=== PATIENT | male | born 1970 | race Caucasian/White ===

== ENCOUNTER 2017-05-04 09:39 | Inpatient (IN) | payer OTHER ==
[2017-05-04 12:02] VITALS: BMI 36.1
--- NOTE | 2017-05-04 13:51 | HP ---
CIWA Score - CIWA Score Nausea/Vomitin Muscle Tremors: 3 Anxiety: 4-Mod. Anxious/Guarded Agitation: 2 Paroxysmal Sweats: 1-Minimal Palms Moist Orientation: 0-Oriented Tacttile Disturbances: 1-Very Mild Itch/Numbness Auditory Disturbances: 0-None Visual Disturbances: 1-Very Mild Sensitivity Headache: 2-Mild CIWA-Ar Total Score: 17 Admission ROS [facility] - HPI Chief Complaint: I need to stop drinking it is getting worse Allergies/Adverse Reactions: Allergies Allergy/AdvReac Type Severity Reaction Status Date / Time Fish Containing Products Allergy Intermediate Rash Verified 05/04/17 13:37 History of Present Illness: Orestes reports an increased pattern of etoh use Exam Limitations: No Limitations - Ebola screening Have you traveled outside of the country in the last 21 days: No Have you been sick,other than usual withdrawal symptoms: No - Review of Systems Constitutional: Malaise EENT: reports: No Symptoms Reported Respiratory: reports: No Symptoms reported Cardiac: reports: No Symptoms Reported GI: reports: Nausea, Indigestion : reports: No Symptoms Reported Musculoskeletal: reports: Muscle Pain Integumentary: reports: No Symptoms Reported Neuro: reports: See HPI Endocrine: reports: No Symptoms Reported Hematology: reports: No Symptoms Reported Psychiatric: reports: Anxious Patient History - Patient Medical History Hx Anemia: No Hx Asthma: No Hx Chronic Obstructive Pulmonary Disease (COPD): No Hx Cancer: No Hx Cardiac Disorders: No Hx Congestive Heart Failure: No Hx Hypertension: No Hx Hypercholesterolemia: No Hx Pacemaker: No HX Cerebrovascular Accident: No Hx Seizures: No Hx Dementia: No Hx Diabetes: No Hx Gastrointestinal Disorders: No Hx Liver Disease: Yes Hx Genitourinary Disorders: No Hx Sexually Transmitted Disorders: No Hx Renal Disease (ESRD): No Hx Thyroid Disease: No Hx Human Immunodeficiency Virus (HIV): No Hx Hepatitis C: Yes (NEEDS TREATMENT) Hx Depression: No Hx Suicide Attempt: No (denies) Hx Bipolar Disorder: No Hx Schizophrenia: No - Patient Surgical History Past Surgical History: No Hx Neurologic Surgery: No Hx Cataract Extraction: No Hx Cardiac Surgery: No Hx Lung Surgery: No Hx Breast Surgery: No Hx Breast Biopsy: No Hx Abdominal Surgery: No Hx Appendectomy: No Hx Cholecystectomy: No Hx Genitourinary Surgery: No Hx Section: No Hx Orthopedic Surgery: No Anesthesia Reaction: No - Smoking Cessation Smoking history: Current every day smoker Have you smoked in the past 12 months: Yes Aproximately how many cigarettes per day: 20 Hx Chewing Tobacco Use: No Initiated information on smoking cessation: Yes 'Breaking Loose' booklet given: 05/04/17 - Substance & Tx. History Hx Alcohol Use: Yes Substance Use Type: Alcohol - Substances Abused Alcohol Route: Oral Frequency: Daily Amount used: 5 24 OZ CANS MALT LIQUOR Age of first use: 10 Date of Last Use: 05/03/17 Family Disease History - Family Disease History Family Disease History: Diabetes: Mother Admission Physical Exam [facility] - Vital Signs Vital Signs: Vital Signs - 24 hr 05/04/17 12:00 Temperature 96.9 F L Pulse Rate 55 L Respiratory 20 Rate Blood Pressure 135/94 - Physical General Appearance: Yes: Disheveled HEENTM: Yes: EOMI, Hearing grossly Normal Respiratory: Yes: Lungs Clear Neck: Yes: No masses,lesions,Nodules Breast: Yes: Breast Exam Deferred Cardiology: Yes: Within Normal Limits Abdominal: Yes: Normal Bowel Sounds, Non Tender, Flat, Soft Back: Yes: Normal Inspection Musculoskeletal: Yes: full range of Motion, Gait Steady Extremities: Yes: Normal Capillary Refill Neurological: Yes: Within Normal Limits, [employer] bar[employer] II-XII NML intact Integumentary: Yes: Within Normal Limits - Diagnostic (1) Alcohol dependence with uncomplicated withdrawal Current Visit: Yes Status: Acute (2) Cocaine dependence, uncomplicated Current Visit: No Status: Chronic (3) Hepatitis C Current Visit: Yes Status: Chronic Qualifiers: Viral hepatitis chronicity: chronic Hepatic coma status: without hepatic coma Qualified Code(s): B18.2 - Chronic viral hepatitis C; B18.2 - Chronic viral hepatitis C; B18.2 - Chronic viral hepatitis C; B18.2 - Chronic viral hepatitis C (4) Nicotine dependence Current Visit: Yes Status: Chronic Qualifiers: Nicotine product type: cigarettes Substance use status: uncomplicated Qualified Code(s): F17.210 - Nicotine dependence, cigarettes, uncomplicated; F17.210 - Nicotine dependence, cigarettes, uncomplicated Cleared for Admission [facility] - Detox or Rehab [facility] Level of Care: Medically Managed Detox Regimen/Protocol: Librium [facility] Breath Alcohol Content Breath Alcohol Content: 0 Urine Drug Screen - Results Drug Screen Negative: No Urine Drug Screen Results: BZO-Benzodiazepines
[2017-05-04] MEDS ORDERED: MENTHOL/PHENOL 1 EACH UD MM PRN (14:01)
[2017-05-04] MEDS ORDERED: guaiFENesin/D-METHORPHAN HB 10 ML UNIT-DOSE CUPS PO PRN (14:01)
[2017-05-04] MEDS ORDERED: MAGNESIUM CITRATE 300 ML BOTTLE PO PRN (14:01)
[2017-05-04] MEDS ORDERED: MAGNESIUM HYDROX 2400MG/30ML ORAL SUSPENSION 30 ML CUP PO PRN (14:01)
[2017-05-04] MEDS ORDERED: IBUPROFEN 400 MG TABLET (FP) PO PRN (14:01)
[2017-05-04] MEDS ORDERED: ACETAMINOPHEN 325 MG TABLET (FP) PO PRN (14:01)
[2017-05-04] MEDS ORDERED: MAG HYDROX/AL HYDROX/SIMETH 30 ML UNIT-DOSE CUP PO PRN (14:01)
[2017-05-04] MEDS ORDERED: chlordiazePOXIDE HCL 25 MG CAPSULE PO PRN (14:01)
[2017-05-04] MEDS ORDERED: NICOTINE POLACRILEX 2 MG GUM BUC PRN (14:01)
[2017-05-04] MEDS ORDERED: P-EPHED 60MG/TRIPROLIDI 2.5MG TABLET PO PRN (14:01)
[2017-05-04] MEDS ORDERED: LOPERAMIDE HCL 2 MG CAPSULE PO PRN (14:01)
[2017-05-04] MEDS: NICOTINE 14 MG/24 HOURS TOPICAL PATCH TD SCH (15:39)
[2017-05-04 16:37] LABS: MCH 31.5 pg (25.7-33.7); MCHC 33.6 g/dl (32.0-35.9); MEAN CELL VOLUME 93.8 fl (80-96); MEAN PLT VOLUME 9.6 fl (7.5-11.1); PLATELET COUNT 198 K/MM3 (134-434); RDW 13.5 % (11.9-15.9); WHITE BLOOD COUNT 6.9 K/mm3 (4.0-10.0)
[2017-05-04 16:48] LABS: ALBUMIN 3.6 g/dl (3.4-5.0); ANION GAP 7 (8-16); CO2 30 mmol/L (21-32); GLUCOSE,RANDOM 99 mg/dL (74-106)
[2017-05-04 16:53] LABS: ALK PHOS 61 U/L (45-117); BILIRUBIN,TOTAL 0.4 mg/dL (0.2-1.0); CREATININE 0.9 mg/dL (0.7-1.3); SGOT/AST 56 U/L (15-37); SGPT/ALT 104 U/L (12-78); TOT PROT 7.3 g/dl (6.4-8.2)
[2017-05-04] MEDS: chlordiazePOXIDE HCL 25 MG CAPSULE PO SCH ×2 (17:32→22:34)
[2017-05-04 17:59] LABS: PLATELET ESTIMATE ADEQUATE (NORMAL)
[2017-05-04 19:58] LABS: HIV 1 & 2 AB NEGATIVE; HIV 1 AGp24 NEGATIVE
[2017-05-04 20:26] LABS: URINE APPEARANCE CLEAR; URINE BILIRUBIN NEGATIVE (NEGATIVE); URINE BLOOD NEGATIVE (NEGATIVE); URINE COLOR LTYELLOW; URINE GLUCOSE (UA) NEGATIVE (NEGATIVE); URINE KETONE NEGATIVE (NEGATIVE); URINE NITRITE NEGATIVE (NEGATIVE); URINE PROTEIN NEGATIVE (NEGATIVE); URINE UROBILINOGEN NEGATIVE mg/dL (0.2-1.0)
[2017-05-04] MEDS: diphenhydrAMINE HCL 50 MG CAPSULE PO PRN (22:34)
[2017-05-04] MEDS: THIAMINE HCL 100 MG TABLET (FP) PO SCH (22:34)
[2017-05-04 22:42] LABS: URINE LEUK ESTERASE Negative (NEGATIVE)
[2017-05-05] MEDS: chlordiazePOXIDE HCL 25 MG CAPSULE PO SCH ×4 (06:02→23:00)
--- NOTE | 2017-05-05 09:28 | EKG ---
Test Reason : Blood Pressure : / mmHG Vent. Rate : 064 BPM Atrial Rate : 064 BPM P-R Int : 152 ms QRS Dur : 094 ms QT Int : 418 ms P-R-T Axes : 006 062 047 degrees QTc Int : 431 ms NORMAL SINUS RHYTHM WITH SINUS ARRHYTHMIA ANTERIOR INFARCT , AGE UNDETERMINED NON-SPECIFIC INTRA-VENTRICULAR CONDUCTION DELAY NO PREVIOUS ECGS AVAILABLE Confirmed by SCOTT YOUNGER MD ([id number]) on 05/05/2017 9:28:23 AM Referred By: Joni Cook Confirmed By:SCOTT YOUNGER MD
[2017-05-05] MEDS: PRENATAL VITAMINS W/ FOLIC ACID TABLET (FP) PO SCH (10:48)
[2017-05-05] MEDS: NICOTINE 14 MG/24 HOURS TOPICAL PATCH TD SCH (10:51)
[2017-05-05] MEDS ORDERED: FLU VACCINE QUAD 60 MCG/0.5 ML (MDV 17-18) IM ONE (12:00)
--- NOTE | 2017-05-05 12:33 | PN ---
[facility] CIWA - CIWA Score Nausea/Vomitin-No Nausea/No Vomiting Muscle Tremors: 4-Moderate,w/Arms Extend Anxiety: 4-Mod. Anxious/Guarded Agitation: 4-Moderately Restless Paroxysmal Sweats: 1-Minimal Palms Moist Orientation: 0-Oriented Tacttile Disturbances: 3-Moderate Itch/Numb/Burn Auditory Disturbances: 0-None Visual Disturbances: 0-None Headache: 0-None Present CIWA-Ar Total Score: 16 [facility] Progress Note (SOAP) Subjective: ANXIETY,TREMORS,SWEATS,FATIGUE. Objective: 05/05/17 12:33 Vital Signs Temperature 98.0 F 05/05/17 10:21 Pulse Rate 80 05/05/17 10:21 Respiratory Rate 18 05/05/17 10:21 Blood Pressure 130/88 05/05/17 10:21 O2 Sat by Pulse Oximetry (%) Laboratory Last Values WBC 6.9 K/mm3 (4.0-10.0) 05/04/17 14:00 RBC 4.48 M/mm3 (4.00-5.60) 05/04/17 14:00 Hgb 14.1 GM/dL (11.7-16.9) 05/04/17 14:00 Hct 42.1 % (35.4-49) 05/04/17 14:00 MCV 93.8 fl (80-96) 05/04/17 14:00 MCH 31.5 pg (25.7-33.7) 05/04/17 14:00 MCHC 33.6 g/dl (32.0-35.9) 05/04/17 14:00 RDW 13.5 % (11.9-15.9) 05/04/17 14:00 Plt Count 198 K/MM3 (134-434) 05/04/17 14:00 MPV 9.6 fl (7.5-11.1) 05/04/17 14:00 Differential Comment Slide scanned 05/04/17 14:00 Platelet Estimate Adequate (NORMAL) 05/04/17 14:00 Platelet Comment Few giant plts 05/04/17 14:00 Sodium 143 mmol/L (136-145) 05/04/17 14:00 Potassium 4.4 mmol/L (3.5-5.1) 05/04/17 14:00 Chloride 106 mmol/L (98-107) 05/04/17 14:00 Carbon Dioxide 30 mmol/L (21-32) 05/04/17 14:00 Anion Gap 7 (8-16) L 05/04/17 14:00 BUN 13 mg/dL (7-18) D 05/04/17 14:00 Creatinine 0.9 mg/dL (0.7-1.3) 05/04/17 14:00 Creat Clearance w eGFR > 60 (>60) 05/04/17 14:00 Random Glucose 99 mg/dL (74-106) 05/04/17 14:00 Calcium 9.0 mg/dL (8.5-10.1) 05/04/17 14:00 Total Bilirubin 0.4 mg/dL (0.2-1.0) D 05/04/17 14:00 AST 56 U/L (15-37) H D 05/04/17 14:00 ALT 104 U/L (12-78) H D 05/04/17 14:00 Alkaline Phosphatase 61 U/L (45-117) D 05/04/17 14:00 Total Protein 7.3 g/dl (6.4-8.2) 05/04/17 14:00 Albumin 3.6 g/dl (3.4-5.0) 05/04/17 14:00 Urine Color Ltyellow 05/04/17 19:43 Urine Appearance Clear 05/04/17 19:43 Urine pH 8.0 (5.0-8.0) D 05/04/17 19:43 Ur Specific [place] 1.020 (1.005-1.025) 05/04/17 19:43 Urine Protein Negative (NEGATIVE) 05/04/17 19:43 Urine Glucose (UA) Negative (NEGATIVE) 05/04/17 19:43 Urine Ketones Negative (NEGATIVE) 05/04/17 19:43 Urine Blood Negative (NEGATIVE) 05/04/17 19:43 Urine Nitrite Negative (NEGATIVE) 05/04/17 19:43 Urine Bilirubin Negative (NEGATIVE) 05/04/17 19:43 Urine Urobilinogen Negative mg/dL (0.2-1.0) 05/04/17 19:43 Ur Leukocyte Esterase Negative (NEGATIVE) 05/04/17 19:43 RPR Titer Nonreactive (NONREACTIVE) 05/04/17 14:00 HIV 1&2 Antibody Screen Negative 05/04/17 14:00 HIV P24 Antigen Negative 05/04/17 14:00 Assessment: 05/05/17 12:33 WITHDRAWAL SX Plan: CONTINUE DETOX
[2017-05-05] MEDS: THIAMINE HCL 100 MG TABLET (FP) PO SCH (22:59)
[2017-05-05] MEDS: HYDROCORTISONE 2.5% TOPICAL CREAM 30 GM TUBE TP SCH (23:00)
[2017-05-05] MEDS: diphenhydrAMINE HCL 50 MG CAPSULE PO PRN (23:00)
[2017-05-05] MEDS: LIDOCAINE VISCOUS 2% ORAL/TOP 20 ML UNIT-DOSE CUP MM PRN (23:04)
[2017-05-06] MEDS: chlordiazePOXIDE HCL 25 MG CAPSULE PO SCH ×2 (06:22→10:49)
[2017-05-06] MEDS: HYDROCORTISONE 2.5% TOPICAL CREAM 30 GM TUBE TP SCH ×2 (10:49→22:44)
[2017-05-06] MEDS: NICOTINE 14 MG/24 HOURS TOPICAL PATCH TD SCH (10:49)
[2017-05-06] MEDS: PRENATAL VITAMINS W/ FOLIC ACID TABLET (FP) PO SCH (10:49)
[2017-05-06] MEDS: chlordiazePOXIDE 5 MG CAPSULE PO SCH ×2 (17:38→22:43)
--- NOTE | 2017-05-06 19:50 | PN ---
[facility] CIWA - CIWA Score Nausea/Vomitin-Mild Nausea/No Vomiting Muscle Tremors: 4-Moderate,w/Arms Extend Anxiety: 3 Agitation: 2 Paroxysmal Sweats: 3 Orientation: 0-Oriented Tacttile Disturbances: 2-Mild Itch/Numbness/Burn Auditory Disturbances: 1-Very Mild Visual Disturbances: 2-Mild Sensitivity Headache: 0-None Present CIWA-Ar Total Score: 18 [facility] Progress Note (SOAP) Subjective: Tremors, Sweating, Anxious. Objective: PT. A & O X 3, OBSERVED AMBULATING ON UNIT WITH ASSISTANCE OF A CANE. NO ACUTE DISTRESS. PT. DENIES CHEST PAIN. 05/06/17 19:47 Vital Signs Temperature 97.4 F L 05/06/17 18:47 Pulse Rate 58 L 05/06/17 18:47 Respiratory Rate 18 05/06/17 18:47 Blood Pressure 132/78 05/06/17 18:47 O2 Sat by Pulse Oximetry (%) Laboratory Tests 05/04/17 05/04/17 05/04/17 14:00 14:00 14:00 WBC 6.9 RBC 4.48 Hgb 14.1 Hct 42.1 MCV 93.8 MCH 31.5 MCHC 33.6 RDW 13.5 Plt Count 198 MPV 9.6 Differential Comment Slide scanned Platelet Estimate Adequate Platelet Comment Few giant plts Sodium 143 Potassium 4.4 Chloride 106 Carbon Dioxide 30 Anion Gap 7 L BUN 13 D Creatinine 0.9 Creat Clearance w eGFR > 60 Random Glucose 99 Calcium 9.0 Total Bilirubin 0.4 D AST 56 H D ALT 104 H D Alkaline Phosphatase 61 D Total Protein 7.3 Albumin 3.6 Urine Color Urine Appearance Urine pH Ur Specific [place] Urine Protein Urine Glucose (UA) Urine Ketones Urine Blood Urine Nitrite Urine Bilirubin Urine Urobilinogen Ur Leukocyte Esterase RPR Titer HIV 1&2 Antibody Screen Negative HIV P24 Antigen Negative 05/04/17 05/04/17 14:00 19:43 WBC RBC Hgb Hct MCV MCH MCHC RDW Plt Count MPV Differential Comment Platelet Estimate Platelet Comment Sodium Potassium Chloride Carbon Dioxide Anion Gap BUN Creatinine Creat Clearance w eGFR Random Glucose Calcium Total Bilirubin AST ALT Alkaline Phosphatase Total Protein Albumin Urine Color Ltyellow Urine Appearance Clear Urine pH 8.0 D Ur Specific [place] 1.020 Urine Protein Negative Urine Glucose (UA) Negative Urine Ketones Negative Urine Blood Negative Urine Nitrite Negative Urine Bilirubin Negative Urine Urobilinogen Negative Ur Leukocyte Esterase Negative RPR Titer Nonreactive HIV 1&2 Antibody Screen HIV P24 Antigen LABS NOTED. Assessment: 05/06/17 19:47 WITHDRAWAL SYMPTOMS. Plan: CONTINUE DETOX.
[2017-05-06] MEDS: THIAMINE HCL 100 MG TABLET (FP) PO SCH (22:43)
[2017-05-07] MEDS: chlordiazePOXIDE 5 MG CAPSULE PO SCH ×2 (05:11→10:34)
[2017-05-07] MEDS: PRENATAL VITAMINS W/ FOLIC ACID TABLET (FP) PO SCH (10:34)
[2017-05-07] MEDS: HYDROCORTISONE 2.5% TOPICAL CREAM 30 GM TUBE TP SCH ×2 (10:34→22:35)
[2017-05-07] MEDS: NICOTINE 14 MG/24 HOURS TOPICAL PATCH TD SCH (10:34)
[2017-05-07] MEDS: LIDOCAINE VISCOUS 2% ORAL/TOP 20 ML UNIT-DOSE CUP MM PRN (10:37)
--- NOTE | 2017-05-07 11:27 | PN ---
[facility] Progress Note (SOAP) Subjective: DECREASED ANXIETY, SWEATS. MEDS EFFECTIVE. ALERT O X 3. OOB AMBULATING ON UNIT. Objective: 05/07/17 11:26 Vital Signs Temperature 98.4 F 05/07/17 10:00 Pulse Rate 93 H 05/07/17 10:00 Respiratory Rate 18 05/07/17 10:00 Blood Pressure 144/86 05/07/17 10:00 O2 Sat by Pulse Oximetry (%) Laboratory Last Values WBC 6.9 K/mm3 (4.0-10.0) 05/04/17 14:00 RBC 4.48 M/mm3 (4.00-5.60) 05/04/17 14:00 Hgb 14.1 GM/dL (11.7-16.9) 05/04/17 14:00 Hct 42.1 % (35.4-49) 05/04/17 14:00 MCV 93.8 fl (80-96) 05/04/17 14:00 MCH 31.5 pg (25.7-33.7) 05/04/17 14:00 MCHC 33.6 g/dl (32.0-35.9) 05/04/17 14:00 RDW 13.5 % (11.9-15.9) 05/04/17 14:00 Plt Count 198 K/MM3 (134-434) 05/04/17 14:00 MPV 9.6 fl (7.5-11.1) 05/04/17 14:00 Differential Comment Slide scanned 05/04/17 14:00 Platelet Estimate Adequate (NORMAL) 05/04/17 14:00 Platelet Comment Few giant plts 05/04/17 14:00 Sodium 143 mmol/L (136-145) 05/04/17 14:00 Potassium 4.4 mmol/L (3.5-5.1) 05/04/17 14:00 Chloride 106 mmol/L (98-107) 05/04/17 14:00 Carbon Dioxide 30 mmol/L (21-32) 05/04/17 14:00 Anion Gap 7 (8-16) L 05/04/17 14:00 BUN 13 mg/dL (7-18) D 05/04/17 14:00 Creatinine 0.9 mg/dL (0.7-1.3) 05/04/17 14:00 Creat Clearance w eGFR > 60 (>60) 05/04/17 14:00 Random Glucose 99 mg/dL (74-106) 05/04/17 14:00 Calcium 9.0 mg/dL (8.5-10.1) 05/04/17 14:00 Total Bilirubin 0.4 mg/dL (0.2-1.0) D 05/04/17 14:00 AST 56 U/L (15-37) H D 05/04/17 14:00 ALT 104 U/L (12-78) H D 05/04/17 14:00 Alkaline Phosphatase 61 U/L (45-117) D 05/04/17 14:00 Total Protein 7.3 g/dl (6.4-8.2) 05/04/17 14:00 Albumin 3.6 g/dl (3.4-5.0) 05/04/17 14:00 Urine Color Ltyellow 05/04/17 19:43 Urine Appearance Clear 05/04/17 19:43 Urine pH 8.0 (5.0-8.0) D 05/04/17 19:43 Ur Specific [place] 1.020 (1.005-1.025) 05/04/17 19:43 Urine Protein Negative (NEGATIVE) 05/04/17 19:43 Urine Glucose (UA) Negative (NEGATIVE) 05/04/17 19:43 Urine Ketones Negative (NEGATIVE) 05/04/17 19:43 Urine Blood Negative (NEGATIVE) 05/04/17 19:43 Urine Nitrite Negative (NEGATIVE) 05/04/17 19:43 Urine Bilirubin Negative (NEGATIVE) 05/04/17 19:43 Urine Urobilinogen Negative mg/dL (0.2-1.0) 05/04/17 19:43 Ur Leukocyte Esterase Negative (NEGATIVE) 05/04/17 19:43 RPR Titer Nonreactive (NONREACTIVE) 05/04/17 14:00 HIV 1&2 Antibody Screen Negative 05/04/17 14:00 HIV P24 Antigen Negative 05/04/17 14:00 Assessment: 05/07/17 11:27 DECREASED WITHDRAWAL SX Plan: CONTINUE DETOX
[2017-05-07] MEDS: chlordiazePOXIDE HCL 10 MG CAPSULE PO SCH ×2 (17:39→22:35)
[2017-05-07] MEDS: THIAMINE HCL 100 MG TABLET (FP) PO SCH (22:35)
[2017-05-08] MEDS: chlordiazePOXIDE HCL 10 MG CAPSULE PO SCH ×2 (05:41→10:44)
[2017-05-08] MEDS: HYDROCORTISONE 2.5% TOPICAL CREAM 30 GM TUBE TP SCH ×2 (10:43→22:37)
[2017-05-08] MEDS: PRENATAL VITAMINS W/ FOLIC ACID TABLET (FP) PO SCH (10:43)
[2017-05-08] MEDS: NICOTINE 14 MG/24 HOURS TOPICAL PATCH TD SCH (10:43)
--- NOTE | 2017-05-08 11:39 | PN ---
S Progress Note (SOAP) Subjective: ALERT O X 3. OOB AMBULATING ON HALLWAYS. NAD. DETOX PROCEEDING WELL. Objective: 05/08/17 11:38 Vital Signs Temperature 97.8 F 05/08/17 09:59 Pulse Rate 97 H 05/08/17 09:59 Respiratory Rate 20 05/08/17 09:59 Blood Pressure 139/74 05/08/17 09:59 O2 Sat by Pulse Oximetry (%) Laboratory Last Values WBC 6.9 K/mm3 (4.0-10.0) 05/04/17 14:00 RBC 4.48 M/mm3 (4.00-5.60) 05/04/17 14:00 Hgb 14.1 GM/dL (11.7-16.9) 05/04/17 14:00 Hct 42.1 % (35.4-49) 05/04/17 14:00 MCV 93.8 fl (80-96) 05/04/17 14:00 MCH 31.5 pg (25.7-33.7) 05/04/17 14:00 MCHC 33.6 g/dl (32.0-35.9) 05/04/17 14:00 RDW 13.5 % (11.9-15.9) 05/04/17 14:00 Plt Count 198 K/MM3 (134-434) 05/04/17 14:00 MPV 9.6 fl (7.5-11.1) 05/04/17 14:00 Differential Comment Slide scanned 05/04/17 14:00 Platelet Estimate Adequate (NORMAL) 05/04/17 14:00 Platelet Comment Few giant plts 05/04/17 14:00 Sodium 143 mmol/L (136-145) 05/04/17 14:00 Potassium 4.4 mmol/L (3.5-5.1) 05/04/17 14:00 Chloride 106 mmol/L (98-107) 05/04/17 14:00 Carbon Dioxide 30 mmol/L (21-32) 05/04/17 14:00 Anion Gap 7 (8-16) L 05/04/17 14:00 BUN 13 mg/dL (7-18) D 05/04/17 14:00 Creatinine 0.9 mg/dL (0.7-1.3) 05/04/17 14:00 Creat Clearance w eGFR > 60 (>60) 05/04/17 14:00 Random Glucose 99 mg/dL (74-106) 05/04/17 14:00 Calcium 9.0 mg/dL (8.5-10.1) 05/04/17 14:00 Total Bilirubin 0.4 mg/dL (0.2-1.0) D 05/04/17 14:00 AST 56 U/L (15-37) H D 05/04/17 14:00 ALT 104 U/L (12-78) H D 05/04/17 14:00 Alkaline Phosphatase 61 U/L (45-117) D 05/04/17 14:00 Total Protein 7.3 g/dl (6.4-8.2) 05/04/17 14:00 Albumin 3.6 g/dl (3.4-5.0) 05/04/17 14:00 Urine Color Ltyellow 05/04/17 19:43 Urine Appearance Clear 05/04/17 19:43 Urine pH 8.0 (5.0-8.0) D 05/04/17 19:43 Ur Specific [place] 1.020 (1.005-1.025) 05/04/17 19:43 Urine Protein Negative (NEGATIVE) 05/04/17 19:43 Urine Glucose (UA) Negative (NEGATIVE) 05/04/17 19:43 Urine Ketones Negative (NEGATIVE) 05/04/17 19:43 Urine Blood Negative (NEGATIVE) 05/04/17 19:43 Urine Nitrite Negative (NEGATIVE) 05/04/17 19:43 Urine Bilirubin Negative (NEGATIVE) 05/04/17 19:43 Urine Urobilinogen Negative mg/dL (0.2-1.0) 05/04/17 19:43 Ur Leukocyte Esterase Negative (NEGATIVE) 05/04/17 19:43 RPR Titer Nonreactive (NONREACTIVE) 05/04/17 14:00 HIV 1&2 Antibody Screen Negative 05/04/17 14:00 HIV P24 Antigen Negative 05/04/17 14:00 Assessment: 05/08/17 11:38 DECREASED WITHDRAWAL SX Plan: CONTINUE DETOX
[2017-05-08] MEDS: VITAMINS A AND D TOPICAL OINTMENT 60 GM TUBE TP SCH (22:36)
[2017-05-08] MEDS: THIAMINE HCL 100 MG TABLET (FP) PO SCH (22:36)
[2017-05-09 09:29] VITALS: BP 143/92; PULSE 71; TEMP 98.4
[2017-05-09] MEDS: HYDROCORTISONE 2.5% TOPICAL CREAM 30 GM TUBE TP SCH (10:53)
[2017-05-09] MEDS: VITAMINS A AND D TOPICAL OINTMENT 60 GM TUBE TP SCH (10:53)
[2017-05-09] MEDS: NICOTINE 14 MG/24 HOURS TOPICAL PATCH TD SCH (10:53)
[2017-05-09] MEDS: PRENATAL VITAMINS W/ FOLIC ACID TABLET (FP) PO SCH (10:53)
--- NOTE | 2017-05-09 11:15 | DS ---
[facility] Detox Discharge Summary Admission Date: 05/04/17 Discharge Date: 05/09/17 - History Present History: Alcohol Dependence, Cocaine Dependence, Opioid Dependence Additional Comments: DETOX COMPLETED. ALERT OX 3. NAD. PT INSTRUCTED TO F/U WITH PCP AT [facility] NEEDED. Pertinent Past History: HEP C - Physical Exam Results Vital Signs: Vital Signs Temperature 98.4 F 05/09/17 09:28 Pulse Rate 71 05/09/17 09:28 Respiratory Rate 18 05/09/17 09:28 Blood Pressure 143/92 05/09/17 09:28 O2 Sat by Pulse Oximetry (%) Pertinent Admission Physical Exam Findings: WITHDRAWAL SX Laboratory Last Values WBC 6.9 K/mm3 (4.0-10.0) 05/04/17 14:00 RBC 4.48 M/mm3 (4.00-5.60) 05/04/17 14:00 Hgb 14.1 GM/dL (11.7-16.9) 05/04/17 14:00 Hct 42.1 % (35.4-49) 05/04/17 14:00 MCV 93.8 fl (80-96) 05/04/17 14:00 MCH 31.5 pg (25.7-33.7) 05/04/17 14:00 MCHC 33.6 g/dl (32.0-35.9) 05/04/17 14:00 RDW 13.5 % (11.9-15.9) 05/04/17 14:00 Plt Count 198 K/MM3 (134-434) 05/04/17 14:00 MPV 9.6 fl (7.5-11.1) 05/04/17 14:00 Differential Comment Slide scanned 05/04/17 14:00 Platelet Estimate Adequate (NORMAL) 05/04/17 14:00 Platelet Comment Few giant plts 05/04/17 14:00 Sodium 143 mmol/L (136-145) 05/04/17 14:00 Potassium 4.4 mmol/L (3.5-5.1) 05/04/17 14:00 Chloride 106 mmol/L (98-107) 05/04/17 14:00 Carbon Dioxide 30 mmol/L (21-32) 05/04/17 14:00 Anion Gap 7 (8-16) L 05/04/17 14:00 BUN 13 mg/dL (7-18) D 05/04/17 14:00 Creatinine 0.9 mg/dL (0.7-1.3) 05/04/17 14:00 Creat Clearance w eGFR > 60 (>60) 05/04/17 14:00 Random Glucose 99 mg/dL (74-106) 05/04/17 14:00 Calcium 9.0 mg/dL (8.5-10.1) 05/04/17 14:00 Total Bilirubin 0.4 mg/dL (0.2-1.0) D 05/04/17 14:00 AST 56 U/L (15-37) H D 05/04/17 14:00 ALT 104 U/L (12-78) H D 05/04/17 14:00 Alkaline Phosphatase 61 U/L (45-117) D 05/04/17 14:00 Total Protein 7.3 g/dl (6.4-8.2) 05/04/17 14:00 Albumin 3.6 g/dl (3.4-5.0) 05/04/17 14:00 Urine Color Ltyellow 05/04/17 19:43 Urine Appearance Clear 05/04/17 19:43 Urine pH 8.0 (5.0-8.0) D 05/04/17 19:43 Ur Specific [place] 1.020 (1.005-1.025) 05/04/17 19:43 Urine Protein Negative (NEGATIVE) 05/04/17 19:43 Urine Glucose (UA) Negative (NEGATIVE) 05/04/17 19:43 Urine Ketones Negative (NEGATIVE) 05/04/17 19:43 Urine Blood Negative (NEGATIVE) 05/04/17 19:43 Urine Nitrite Negative (NEGATIVE) 05/04/17 19:43 Urine Bilirubin Negative (NEGATIVE) 05/04/17 19:43 Urine Urobilinogen Negative mg/dL (0.2-1.0) 05/04/17 19:43 Ur Leukocyte Esterase Negative (NEGATIVE) 05/04/17 19:43 RPR Titer Nonreactive (NONREACTIVE) 05/04/17 14:00 HIV 1&2 Antibody Screen Negative 05/04/17 14:00 HIV P24 Antigen Negative 05/04/17 14:00 - Treatment Hospital Course: Detox Protocol Followed, Detoxed Safely, Responded well, Discharged Condition Good, Rehab Referral Accepted Patient has Accepted a Rehab Referral to: [facility] - Medication Discharge Medications: Ambulatory Orders NK [No Known Home Medication] 04/14/16 - Diagnosis (1) Alcohol dependence with uncomplicated withdrawal Current Visit: Yes Status: Acute (2) Hepatitis C Current Visit: Yes Status: Chronic Qualifiers: Viral hepatitis chronicity: chronic Hepatic coma status: without hepatic coma Qualified Code(s): B18.2 - Chronic viral hepatitis C; B18.2 - Chronic viral hepatitis C; B18.2 - Chronic viral hepatitis C; B18.2 - Chronic viral hepatitis C (3) Nicotine dependence Current Visit: Yes Status: Acute Qualifiers: Nicotine product type: cigarettes Substance use status: in withdrawal Qualified Code(s): F17.213 - Nicotine dependence, cigarettes, with withdrawal; F17.213 - Nicotine dependence, cigarettes, with withdrawal (4) Cocaine dependence, uncomplicated Current Visit: Yes Status: Acute (5) Opioid dependence with withdrawal Current Visit: Yes Status: Acute - AMA Did Patient Leave Against Medical Advice: No
== END 2017-05-09 12:54 | disposition other institution (70) | DRG 773 ==
LOC: YASAS 09:39 → Y3N 14:52
PROVIDERS: ADMIT Internal Medicine; ATTEND Internal Medicine
PROC: HZ2ZZZZ Detoxification Services for Substance Abuse Treatment (ICD-10-PCS; principal; 2017-05-04)
DX: F11.23 Opioid dependence with withdrawal (principal); F10.230 Alcohol dependence with withdrawal, uncomplicated; F14.20 Cocaine dependence, uncomplicated; F17.213 Nicotine dependence, cigarettes, with withdrawal; B18.2 Chronic viral hepatitis C; Z59.0 Homelessness
CPT/HCPCS: 36415; 71020-TC; 80053; 81003; 85027; 86593; 87389; 90688; 93005; 93010; G0008

== ENCOUNTER 2017-05-09 13:05 | Inpatient (IN) | payer OTHER ==
[2017-05-09 13:39] VITALS: BMI 35.1
[2017-05-09] MEDS ORDERED: MENTHOL/PHENOL 1 EACH UD MM PRN (13:57)
[2017-05-09] MEDS ORDERED: hydrOXYzine PAMOATE 50 MG CAPSULE (FP) PO PRN (13:57)
[2017-05-09] MEDS ORDERED: MAG HYDROX/AL HYDROX/SIMETH 30 ML UNIT-DOSE CUP PO PRN (13:57)
[2017-05-09] MEDS ORDERED: guaiFENesin/D-METHORPHAN HB 10 ML UNIT-DOSE CUPS PO PRN (13:57)
[2017-05-09] MEDS ORDERED: P-EPHED 60MG/TRIPROLIDI 2.5MG TABLET PO PRN (13:57)
[2017-05-09] MEDS ORDERED: MAGNESIUM HYDROX 2400MG/30ML ORAL SUSPENSION 30 ML CUP PO PRN (13:57)
[2017-05-09] MEDS ORDERED: IBUPROFEN 400 MG TABLET (FP) PO PRN (13:57)
[2017-05-09] MEDS ORDERED: ACETAMINOPHEN 325 MG TABLET (FP) PO PRN (13:57)
[2017-05-09] MEDS ORDERED: MAGNESIUM CITRATE 300 ML BOTTLE PO PRN (13:57)
[2017-05-09] MEDS ORDERED: LOPERAMIDE HCL 2 MG CAPSULE PO PRN (13:57)
--- NOTE | 2017-05-09 13:59 | HP ---
[facility] Rehab Assess/Revision - Admission History Admitted to Rehab from: [facility] [place] Date of Admission to Rehab: 05/09/2017 - Vital signs Vital Signs: Vital Signs Period Temp Pulse Resp BP Sys/Contreras Pulse Ox Last 24 Hr 98.5 F 75 20 148/89 - Findings Detox History & Physical reviewed: Yes Concur with findings: Yes Inpatient Rehab Admission - Initial Determination Are CD services needed?: Yes Free of communicable disease: Yes Not in need of hospitalization: Yes - Rehab Admission Criteria Lacks judgement: Yes Patient is meeting Inpatient Rehab admission criteria:: Yes
[2017-05-09] MEDS: VITAMINS A AND D TOPICAL OINTMENT 60 GM TUBE TP SCH (17:41)
[2017-05-09] MEDS: THIAMINE HCL 100 MG TABLET (FP) PO SCH (22:59)
[2017-05-10] MEDS: VITAMINS A AND D TOPICAL OINTMENT 60 GM TUBE TP SCH ×4 (00:30→17:00)
--- NOTE | 2017-05-10 06:28 | HP ---
Psychiatrist Admission - Data Date of interview: 05/10/17 Admission source: 3N Identifying data: This is the second [facility] admission for this 46 years old male, father of 3 children, unemployed on food stamp, homeless Medical History: Significant for Hep C, history of prophylactic treatment for TB and trauma left knee(ambulates with cane). Smokes cigarettes 1ppd Psychiatric History: Denies history of previous psychiatric treatment Physical/Sexual Abuse/Trauma History: Denies history of verbal, physical or sexual abuse as well as DV relationship Additional Comment: Reports history of multiple previous misdemeanor arrests. No probation currently Vital Signs: Vital Signs - 24 hr 05/09/17 05/10/17 05/10/17 13:24 01:13 03:30 Temperature 98.5 F Pulse Rate 75 Respiratory 20 16 16 Rate Blood Pressure 148/89 Allergies/Adverse Reactions: Allergies Allergy/AdvReac Type Severity Reaction Status Date / Time Fish Containing Products Allergy Intermediate Rash Verified 05/09/17 13:54 Date of last physical exam: 05/04/17 Concur with the findings of this exam: Yes - Substance Abuse/Tx History Hx Alcohol Use: Yes Hx Substance Use: No Substance Use Type: Alcohol (Started drinking alcohol at age 10, consumes 5x 24oz of malt liquor daily. Last drakn on 05/03/17) Hx Substance Use Treatment: Yes (4 previous inpt detox & one inpt [facility] admissions @ [facility]) Mental Status Exam - Mental Status Exam Alert and Oriented to: Time, Place, Person Cognitive Function: Fair Patient Appearance: Disheveled Mood: Happy Affect: Appropriate Patient Behavior: Cooperative Speech Pattern: Clear Voice Loudness: Normal Thought Process: Intact, Goal Oriented Thought Disorder: Not Present Hallucinations: Denies Suicidal Ideation: Denies Homicidal Ideation: Denies Insight/Judgement: Fair Sleep: Well Appetite: Good Muscle strength/Tone: Normal Gait/Station: Antalgic (Ambulates with a cane due to injury left knee) Psychiatric Findings - Problem List ([place]put[place] 1, 2,3) (1) Alcohol dependence Current Visit: Yes Status: Acute (2) Nicotine dependence Current Visit: No Status: Acute Qualifiers: Nicotine product type: cigarettes Substance use status: in withdrawal Qualified Code(s): F17.213 - Nicotine dependence, cigarettes, with withdrawal; F17.213 - Nicotine dependence, cigarettes, with withdrawal (3) Hepatitis C Current Visit: No Status: Chronic Qualifiers: Viral hepatitis chronicity: chronic Hepatic coma status: without hepatic coma Qualified Code(s): B18.2 - Chronic viral hepatitis C; B18.2 - Chronic viral hepatitis C; B18.2 - Chronic viral hepatitis C; B18.2 - Chronic viral hepatitis C - Initial Treatment Plan Initial Treatment Plan: Monitor progress
[2017-05-10] MEDS: PRENATAL VITAMINS W/ FOLIC ACID TABLET (FP) PO SCH (10:39)
[2017-05-10] MEDS: THIAMINE HCL 100 MG TABLET (FP) PO SCH (22:00)
[2017-05-11] MEDS: VITAMINS A AND D TOPICAL OINTMENT 60 GM TUBE TP SCH ×5 (00:17→23:36)
[2017-05-11] MEDS: PRENATAL VITAMINS W/ FOLIC ACID TABLET (FP) PO SCH (10:36)
[2017-05-11] MEDS: THIAMINE HCL 100 MG TABLET (FP) PO SCH (21:58)
[2017-05-12] MEDS: VITAMINS A AND D TOPICAL OINTMENT 60 GM TUBE TP SCH ×3 (06:03→17:06)
[2017-05-12] MEDS: PRENATAL VITAMINS W/ FOLIC ACID TABLET (FP) PO SCH (10:45)
[2017-05-12] MEDS: THIAMINE HCL 100 MG TABLET (FP) PO SCH (21:49)
[2017-05-13] MEDS: VITAMINS A AND D TOPICAL OINTMENT 60 GM TUBE TP SCH ×4 (00:10→19:46)
[2017-05-13] MEDS: PRENATAL VITAMINS W/ FOLIC ACID TABLET (FP) PO SCH (09:15)
[2017-05-13] MEDS: THIAMINE HCL 100 MG TABLET (FP) PO SCH (22:29)
[2017-05-14] MEDS: VITAMINS A AND D TOPICAL OINTMENT 60 GM TUBE TP SCH ×5 (01:30→23:09)
[2017-05-14] MEDS: PRENATAL VITAMINS W/ FOLIC ACID TABLET (FP) PO SCH (10:01)
[2017-05-14] MEDS: THIAMINE HCL 100 MG TABLET (FP) PO SCH (22:14)
[2017-05-15] MEDS: VITAMINS A AND D TOPICAL OINTMENT 60 GM TUBE TP SCH ×3 (07:00→18:00)
[2017-05-15] MEDS: PRENATAL VITAMINS W/ FOLIC ACID TABLET (FP) PO SCH (10:28)
[2017-05-15] MEDS: THIAMINE HCL 100 MG TABLET (FP) PO SCH (22:06)
[2017-05-16] MEDS: VITAMINS A AND D TOPICAL OINTMENT 60 GM TUBE TP SCH ×4 (06:32→17:08)
[2017-05-16] MEDS: PRENATAL VITAMINS W/ FOLIC ACID TABLET (FP) PO SCH (10:34)
[2017-05-16] MEDS: THIAMINE HCL 100 MG TABLET (FP) PO SCH (21:52)
[2017-05-17] MEDS: VITAMINS A AND D TOPICAL OINTMENT 60 GM TUBE TP SCH ×5 (02:15→17:07)
[2017-05-17] MEDS: PRENATAL VITAMINS W/ FOLIC ACID TABLET (FP) PO SCH (11:00)
[2017-05-17] MEDS: THIAMINE HCL 100 MG TABLET (FP) PO SCH (21:59)
[2017-05-18] MEDS: VITAMINS A AND D TOPICAL OINTMENT 60 GM TUBE TP SCH ×4 (00:02→17:16)
[2017-05-18] MEDS: PRENATAL VITAMINS W/ FOLIC ACID TABLET (FP) PO SCH (10:37)
[2017-05-18] MEDS: THIAMINE HCL 100 MG TABLET (FP) PO SCH (22:17)
[2017-05-19] MEDS: VITAMINS A AND D TOPICAL OINTMENT 60 GM TUBE TP SCH ×4 (07:36→17:09)
[2017-05-19] MEDS: PRENATAL VITAMINS W/ FOLIC ACID TABLET (FP) PO SCH (10:13)
[2017-05-19] MEDS: THIAMINE HCL 100 MG TABLET (FP) PO SCH (22:03)
[2017-05-20] MEDS: VITAMINS A AND D TOPICAL OINTMENT 60 GM TUBE TP SCH ×4 (06:29→17:39)
[2017-05-20] MEDS: PRENATAL VITAMINS W/ FOLIC ACID TABLET (FP) PO SCH (10:53)
[2017-05-20] MEDS: THIAMINE HCL 100 MG TABLET (FP) PO SCH (22:13)
[2017-05-21] MEDS: VITAMINS A AND D TOPICAL OINTMENT 60 GM TUBE TP SCH ×5 (06:16→23:53)
[2017-05-21] MEDS: PRENATAL VITAMINS W/ FOLIC ACID TABLET (FP) PO SCH (10:27)
[2017-05-21] MEDS: THIAMINE HCL 100 MG TABLET (FP) PO SCH (21:58)
[2017-05-22] MEDS: VITAMINS A AND D TOPICAL OINTMENT 60 GM TUBE TP SCH ×2 (06:05→13:29)
[2017-05-22 06:58] VITALS: BP 148/96; PULSE 84; TEMP 98.8
[2017-05-22] MEDS: PRENATAL VITAMINS W/ FOLIC ACID TABLET (FP) PO SCH (10:36)
--- NOTE | 2017-05-22 14:04 | PN ---
Psychiatric Progress Note Vital Signs: Vital Signs Period Temp Pulse Resp BP Sys/Contreras Pulse Ox Last 24 Hr 98.8 F 84 18-18 148/96 Date of Session: 05/22/17 Chief Complaint:: Discharge Note HPI: Patient addressing Alcohol Dependence comorbid with Nicotine Dependence ROS: Hep C Current Medications: Active Medications Generic Name Dose Route Start Last Admin Trade Name Freq PRN Reason Stop Dose Admin Acetaminophen 650 mg 05/09/17 13:57 Tylenol - PO Q4H PRN FEVER OR PAIN Al Hydroxide/Mg Hydroxide 30 ml 05/09/17 13:57 Mylanta Oral Suspension - PO Q6H PRN DYSPEPSIA Eucalyptus/Menthol/Phenol/Sorbitol 1 each 05/09/17 13:57 Cepastat Lozenge - MM Q4H PRN SORE THROAT Guaifenesin 10 ml 05/09/17 13:57 Robitussin Dm - PO Q6H PRN COUGH Hydroxyzine Pamoate 50 mg 05/09/17 13:57 Vistaril - PO Q4H PRN AGITATION Ibuprofen 400 mg 05/09/17 13:57 Motrin - PO Q6H PRN PAIN Loperamide HCl 4 mg 05/09/17 13:57 Imodium - PO Q6H PRN DIARRHEA Magnesium Hydroxide 30 ml 05/09/17 13:57 Milk Of Magnesia - PO DAILY PRN CONSTIPATION Multivit/Folic Acid/Iron 1 tab 05/10/17 10:00 05/22/17 10:36 Vitamins (Sjr) - PO Not Given DAILY EDVIN Pseudoephedrine/Triprolidine 1 combo 05/09/17 13:57 Actifed - PO TID PRN NASAL CONGESTION Thiamine HCl 100 mg 05/09/17 22:00 05/21/17 21:58 Vitamin B1 - PO Not Given HS EDVIN Vitamin A/Vitamin D 1 applic 05/09/17 18:00 05/22/17 13:29 Vitamin A & D Top Oint - TP Not Given Q6HPO EDVIN Current Side Effect: No Lab tests ordered: Yes Lab tests reviewed: Yes Provider note:: Patient has completed this program today. He has met his treatment goals and will continue to address his issues in outpatient treatment at [facility]. He is stable for discharge today Total face to face time:: 35 Mental Status Exam - Mental Status Exam Alert and Oriented to: Time, Place, Person Cognitive Function: Fair Patient Appearance: Well Groomed Mood: Hopeful, Euthymic Affect: Appropriate Patient Behavior: Cooperative Speech Pattern: Clear Voice Loudness: Normal Thought Process: Intact, Goal Oriented Thought Disorder: Not Present Hallucinations: Denies Suicidal Ideation: Denies Homicidal Ideation: Denies Insight/Judgement: Fair Sleep: Well Appetite: Good Muscle strength/Tone: Normal Gait/Station: Normal Psychiatric Treatment Plan - Problem List (1) Alcohol dependence Current Visit: Yes (2) Nicotine dependence Current Visit: No Qualifiers: Nicotine product type: cigarettes Substance use status: in withdrawal Qualified Code(s): F17.213 - Nicotine dependence, cigarettes, with withdrawal; F17.213 - Nicotine dependence, cigarettes, with withdrawal (3) Hepatitis C Current Visit: No Qualifiers: Viral hepatitis chronicity: chronic Hepatic coma status: without hepatic coma Qualified Code(s): B18.2 - Chronic viral hepatitis C; B18.2 - Chronic viral hepatitis C; B18.2 - Chronic viral hepatitis C; B18.2 - Chronic viral hepatitis C Initial treatment plan: Patient is discharged today and referred to [facility] for outpatient treatment
== END 2017-05-22 14:10 | disposition home or self-care (01) | DRG 772 ==
LOC: YASAS 13:05 → Y3W 13:06
PROVIDERS: ADMIT Psychiatry & Neurology Psychiatry; ATTEND Psychiatry & Neurology Psychiatry
PROC: HZ42ZZZ Group Counseling for Substance Abuse Treatment, Cognitive-Behavioral (ICD-10-PCS; principal; 2017-05-08)
DX: F10.20 Alcohol dependence, uncomplicated (principal); F17.213 Nicotine dependence, cigarettes, with withdrawal; B18.2 Chronic viral hepatitis C; Z59.0 Homelessness

== ENCOUNTER 2017-12-05 15:29 | Inpatient (IN) | payer OTHER ==
[2017-12-05 19:01] VITALS: BMI 38.0
--- NOTE | 2017-12-05 23:57 | HP ---
CIWA Score - CIWA Score Nausea/Vomitin-Int. Nausea w/Dry Heave Muscle Tremors: 3 Anxiety: 2 Agitation: 2 Paroxysmal Sweats: 1-Minimal Palms Moist Orientation: 0-Oriented Tacttile Disturbances: 0-None Auditory Disturbances: 0-None Visual Disturbances: 0-None Headache: 0-None Present CIWA-Ar Total Score: 12 Admission ROS BHS - HPI Chief Complaint: I am here for detox Allergies/Adverse Reactions: Allergies Allergy/AdvReac Type Severity Reaction Status Date / Time Fish Containing Products Allergy Intermediate Rash Verified 12/05/17 23:03 No Known Drug Allergies Allergy Verified 12/05/17 23:03 History of Present Illness: 46 yo male with hx alcohol and nicotine dependence is here seeking detox. PMHX: Left chronic knee pain, Hep C, anxiety, insomnia. Denies suicidal / homicidal ideation. Longest period of sobriety 8 months through AA meeting. Last detox at [facility] 10/23/17-10/27/17. Exam Limitations: No Limitations - Ebola screening Have you traveled outside of the country in the last 21 days: No (N) Have you had contact with anyone from an Ebola affected area: No Have you been sick,other than usual withdrawal symptoms: No Do you have a fever: No - Review of Systems Constitutional: Loss of Appetite, Changes in sleep, Unintentional Wgt. Loss (16 lbs over one month) EENT: reports: No Symptoms Reported Respiratory: reports: No Symptoms reported Cardiac: reports: No Symptoms Reported GI: reports: Diarrhea, Vomiting, Indigestion, Abdominal cramping : reports: No Symptoms Reported Musculoskeletal: reports: Joint Pain (left knee, uses cane) Integumentary: reports: No Symptoms Reported Neuro: reports: No Symptoms reported Endocrine: reports: Increased Thirst Hematology: reports: No Symptoms Reported Psychiatric: reports: Orientated x3, Anxious Other Systems: Reviewed and Negative Patient History - Patient Medical History Hx Anemia: No Hx Asthma: No Hx Chronic Obstructive Pulmonary Disease (COPD): No Hx Cancer: No Hx Cardiac Disorders: No Hx Congestive Heart Failure: No Hx Hypertension: Yes Hx Hypercholesterolemia: No Hx Pacemaker: No HX Cerebrovascular Accident: No Hx Seizures: No Hx Dementia: No Hx Diabetes: No Hx Gastrointestinal Disorders: No Hx Liver Disease: Yes (Hep C ) Hx Genitourinary Disorders: No Hx Sexually Transmitted Disorders: No Hx Renal Disease (ESRD): No Hx Thyroid Disease: No Hx Human Immunodeficiency Virus (HIV): No ( [facility] NEGATIVE) Hx Hepatitis C: Yes (NEEDS TREATMENT) Hx Depression: Yes Hx Suicide Attempt: No (denies) Hx Bipolar Disorder: Yes Hx Schizophrenia: No - Patient Surgical History Past Surgical History: No Hx Neurologic Surgery: No Hx Cataract Extraction: No Hx Cardiac Surgery: No Hx Lung Surgery: No Hx Breast Surgery: No Hx Breast Biopsy: No Hx Abdominal Surgery: No Hx Appendectomy: No Hx Cholecystectomy: No Hx Genitourinary Surgery: No Hx Section: No Hx Orthopedic Surgery: No Anesthesia Reaction: No - PPD History Previous Implant?: Yes Documented Results: Positive w/o proof Results: CXRAY 05/05/17 PPD to be Administered?: No - Reproductive History Patient is a Female of Child Bearing Age (11 -55 yrs old): No - Smoking Cessation Smoking history: Former smoker Have you smoked in the past 12 months: Yes Aproximately how many cigarettes per day: 20 Hx Chewing Tobacco Use: No Initiated information on smoking cessation: Yes 'Breaking Loose' booklet given: 12/06/17 - Substance & Tx. History Hx Alcohol Use: Yes Hx Substance Use: Yes Substance Use Type: Alcohol Hx Substance Use Treatment: Yes (ast detox at [facility] 10/23/17-10/27/17.) - Substances Abused Alcohol Route: Oral Frequency: Daily Amount used: Beer 1 of 6 pack, Vodka 2-3 pints Age of first use: 10 Date of Last Use: 12/04/17 Family Disease History - Family Disease History Family Disease History: Diabetes: Mother Admission Physical Exam [facility] - Vital Signs Vital Signs: Vital Signs - 24 hr 12/05/17 18:59 Temperature 99.8 F H Pulse Rate 89 Respiratory 21 Rate Blood Pressure 150/89 - Physical General Appearance: Yes: Disheveled, Obese, Sweating, Anxious HEENTM: Yes: EOMI, Hearing grossly Normal, Normal ENT Inspection, Normocephalic , Normal Voice, MINA, Tm's normal Respiratory: Yes: Chest Non-Tender, Lungs Clear, Normal Breath Sounds, No Respiratory Distress, No Accessory Muscle Use Neck: Yes: No masses,lesions,Nodules, Trachea in good position Breast: Yes: Breast Exam Deferred Cardiology: Yes: Regular Rhythm, Regular Rate Abdominal: Yes: Normal Bowel Sounds, Non Tender, Soft, Protuberent Genitourinary: Yes: Within Normal Limits Back: Yes: Normal Inspection Musculoskeletal: Yes: full range of Motion, Gait Steady Extremities: Yes: Normal Capillary Refill, Normal Inspection, Normal Range of Motion, Non-Tender Neurological: Yes: 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 NML intact, Fully Oriented, Alert, Motor Strength 5/5, Depressed Affect Integumentary: Yes: Normal Color, Warm, Diaphoresis Lymphatic: Yes: Within Normal Limits - Diagnostic (1) Elevated blood pressure reading in office with diagnosis of hypertension Current Visit: Yes Status: Acute (2) Chronic pain of left knee Current Visit: Yes Status: Acute (3) Anxious mood Current Visit: Yes Status: Acute (4) Essential hypertension Current Visit: Yes Status: Chronic Comment: non-compliant with meds (5) Nicotine dependence Current Visit: Yes Status: Acute Qualifiers: Nicotine product type: cigarettes Substance use status: in withdrawal Qualified Code(s): F17.213 - Nicotine dependence, cigarettes, with withdrawal (6) Hepatitis C Current Visit: Yes Status: Chronic Qualifiers: Viral hepatitis chronicity: chronic Hepatic coma status: without hepatic coma Qualified Code(s): B18.2 - Chronic viral hepatitis C Cleared for Admission [facility] - Detox or Rehab [facility] Level of Care: Medically Managed Detox Regimen/Protocol: Librium [facility] Breath Alcohol Content Breath Alcohol Content: 0 Urine Drug Screen - Results Drug Screen Negative: No Urine Drug Screen Results: BZO-Benzodiazepines
[2017-12-06] MEDS ORDERED: ACETAMINOPHEN 325 MG TABLET (FP) PO PRN (00:06)
[2017-12-06] MEDS ORDERED: chlordiazePOXIDE HCL 25 MG CAPSULE PO ONE (00:06)
[2017-12-06] MEDS ORDERED: chlordiazePOXIDE HCL 25 MG CAPSULE PO PRN (00:06)
[2017-12-06] MEDS ORDERED: hydrOXYzine PAMOATE 50 MG CAPSULE (FP) PO PRN (00:06)
[2017-12-06] MEDS ORDERED: MAGNESIUM CITRATE 300 ML BOTTLE PO PRN (00:06)
[2017-12-06] MEDS ORDERED: NICOTINE POLACRILEX 2 MG GUM BC PRN (00:06)
[2017-12-06] MEDS ORDERED: MAGNESIUM HYDROX 2400MG/30ML ORAL SUSPENSION 30 ML CUP PO PRN (00:06)
[2017-12-06] MEDS ORDERED: LOPERAMIDE HCL 2 MG CAPSULE PO PRN (00:06)
[2017-12-06] MEDS ORDERED: IBUPROFEN 400 MG TABLET (FP) PO PRN (00:06)
[2017-12-06] MEDS ORDERED: MAG HYDROX/AL HYDROX/SIMETH 30 ML UNIT-DOSE CUP PO PRN (00:06)
[2017-12-06] MEDS ORDERED: P-EPHED 60MG/TRIPROLIDI 2.5MG TABLET PO PRN (00:06)
[2017-12-06] MEDS: chlordiazePOXIDE HCL 25 MG CAPSULE PO SCH ×4 (05:50→23:39)
[2017-12-06] MEDS: NICOTINE 21 MG/24 HOURS TOPICAL PATCH TD SCH (10:51)
--- NOTE | 2017-12-06 10:52 | CONSULT ---
[facility] Psychiatric Consult - Data Date of interview: 12/06/17 Admission source: [facility] Identifying data: This is a 46 year old male, father of 3, unemployed and currently homeless. Substance Abuse History: Patient reports started drinking at age of 10, daily beer 1-6 pks and 2-3 pints of vodka. Medical History: Significant for Hep C, history of prophylactic treatment for TB and trauma left knee(ambulates with cane). Smokes cigarettes 1ppd Psychiatric History: Patient reports that he recently (a month ago) lost his , states he relasped after he , denies previous treatment or psychiatric hospitalizations, but as per [facility] medical record was on Zyprexa , states does not need Zyprexa, but he is unable to sleep well and asking pills for insomnia.. Physical/Sexual Abuse/Trauma History: Denies Mental Status Exam - Mental Status Exam Alert and Oriented to: Time, Place, Person Cognitive Function: Grossly Intact Patient Appearance: Well Groomed Mood: Sad, Anxious Affect: Mood Congruent Patient Behavior: Appropriate, Cooperative Speech Pattern: Clear, Appropriate Voice Loudness: Normal Thought Process: Intact, Goal Oriented Thought Disorder: Not Present Hallucinations: Denies Suicidal Ideation: Denies Homicidal Ideation: Denies Insight/Judgement: Fair Sleep: Fair Appetite: Fair Muscle strength/Tone: Normal Gait/Station: Other (ambulets with a cane) Psychiatric Findings - Problem List ([place] 1, 2,3) (1) Bereavement Current Visit: Yes Status: Acute (2) Nicotine dependence Current Visit: Yes Status: Acute Qualifiers: Nicotine product type: cigarettes Substance use status: in withdrawal Qualified Code(s): F17.213 - Nicotine dependence, cigarettes, with withdrawal (3) Alcohol dependence Current Visit: No Status: Acute - Initial Treatment Plan Initial Treatment Plan: Continue detox, will add Ambien 10 mg po hs.
[2017-12-06] MEDS: PRENATAL VITAMINS W/ FOLIC ACID TABLET (FP) PO SCH (10:53)
[2017-12-06] MEDS: amLODIPine BESYLATE 5 MG TABLET (FP) PO SCH (10:53)
--- NOTE | 2017-12-06 11:13 | PN ---
S CIWA - CIWA Score Nausea/Vomitin Muscle Tremors: 3 Anxiety: 2 Agitation: 2 Paroxysmal Sweats: 1-Minimal Palms Moist Orientation: 0-Oriented Tacttile Disturbances: 1-Very Mild Itch/Numbness Auditory Disturbances: 1-Very Mild Visual Disturbances: 0-None Headache: 2-Mild CIWA-Ar Total Score: 15 BHS Progress Note (SOAP) Subjective: ALERT,IRRITABLE,ANXIOUS,INTERRUPTED SLEEP,OLD INJURY LEFT KNEE,AMBULATION WITH CANE Objective: 12/06/17 11:11 Vital Signs Temperature 97.7 F 12/06/17 10:07 Pulse Rate 81 12/06/17 10:07 Respiratory Rate 20 12/06/17 10:07 Blood Pressure 122/66 12/06/17 10:07 O2 Sat by Pulse Oximetry (%) EKG NSR WITH SINUS ARRHYTHMIA PROLONG QT 378/45 NO CHEST PAIN,NO SOB,NO DIZZINESS LABS PENDING Assessment: 12/06/17 11:12 WITHDRAWAL SYMPTOM Plan: CONTINUE DETOX
--- NOTE | 2017-12-06 11:52 | EKG ---
Test Reason : Blood Pressure : / mmHG Vent. Rate : 086 BPM Atrial Rate : 086 BPM P-R Int : 150 ms QRS Dur : 098 ms QT Int : 378 ms P-R-T Axes : 051 066 042 degrees QTc Int : 452 ms NORMAL SINUS RHYTHM WITH SINUS ARRHYTHMIA NORMAL ECG WHEN COMPARED WITH ECG OF 23-OCT-2017 17:22, PREMATURE ATRIAL COMPLEXES ARE NO LONGER PRESENT Confirmed by HOWIE VASQUEZ, CHAVEZ ([id number]) on 12/06/2017 11:51:36 AM Referred By: Confirmed By:CHAVEZ DENISE MD
[2017-12-06 16:03] LABS: HEMATOCRIT 41.1 % (35.4-49); HEMOGLOBIN 13.6 GM/dL (11.7-16.9); MCH 31.7 pg (25.7-33.7); MCHC 33.2 g/dl (32.0-35.9); MEAN CELL VOLUME 95.7 fl (80-96); PLATELET COUNT 219 K/MM3 (134-434); RBC 4.29 M/mm3 (4.00-5.60); RDW 14.4 % (11.9-15.9); WHITE BLOOD COUNT 7.2 K/mm3 (4.0-10.0)
[2017-12-06 16:35] LABS: CHLORIDE 106 mmol/L (98-107); POTASSIUM 4.2 mmol/L (3.5-5.1); SODIUM 142 mmol/L (136-145)
[2017-12-06 17:00] LABS: ALBUMIN 3.2 g/dl (3.4-5.0); ALK PHOS 63 U/L (45-117); ANION GAP 8 (8-16); BILIRUBIN,TOTAL 0.5 mg/dL (0.2-1.0); BLOOD UREA NITROGEN 13 mg/dL (7-18); CALCIUM 8.1 mg/dL (8.5-10.1); CO2 28 mmol/L (21-32); CREATININE 0.9 mg/dL (0.7-1.3); GLUCOSE,RANDOM 118 mg/dL (74-106); SGOT/AST 21 U/L (15-37); SGPT/ALT 31 U/L (12-78); TOT PROT 6.5 g/dl (6.4-8.2)
[2017-12-06 17:30] LABS: URINE APPEARANCE CLEAR; URINE BILIRUBIN NEGATIVE (<2.0 mg/dL); URINE COLOR LTYELLOW; URINE GLUCOSE (UA) NEGATIVE (NEGATIVE); URINE KETONE NEGATIVE (NEGATIVE); URINE LEUK ESTERASE NEGATIVE (NEGATIVE); URINE NITRITE NEGATIVE (NEGATIVE); URINE PROTEIN NEGATIVE (NEGATIVE)
[2017-12-06] MEDS ORDERED: MELATONIN 5 MG TABLETS PO PRN (22:00)
[2017-12-06] MEDS: THIAMINE HCL 100 MG TABLET (FP) PO SCH (22:47)
[2017-12-07] MEDS: chlordiazePOXIDE HCL 25 MG CAPSULE PO SCH ×4 (06:16→22:16)
[2017-12-07] MEDS: guaiFENesin/D-METHORPHAN HB 10 ML UNIT-DOSE CUPS PO PRN ×2 (07:15→12:33)
[2017-12-07] MEDS: MENTHOL/PHENOL 1 EACH UD MM PRN ×2 (07:15→12:09)
[2017-12-07] MEDS ORDERED: AMOX TR/POT CLAV 875MG/125MG TABLETS (FP) PO ONE (09:35)
--- NOTE | 2017-12-07 10:10 | PN ---
S CIWA - CIWA Score Nausea/Vomitin Muscle Tremors: 3 Anxiety: 3 Agitation: 2 Paroxysmal Sweats: 1-Minimal Palms Moist Orientation: 0-Oriented Tacttile Disturbances: 1-Very Mild Itch/Numbness Auditory Disturbances: 1-Very Mild Visual Disturbances: 0-None Headache: 2-Mild CIWA-Ar Total Score: 16 BHS Progress Note (SOAP) Subjective: ALERT,IRRITABLE,ANXIOUS,INTERRUPTED SLEEP,COUGHING ,YELLOWISH MUCOUS Objective: 12/07/17 10:05 Vital Signs Temperature 98.1 F 12/07/17 06:29 Pulse Rate 71 12/07/17 06:29 Respiratory Rate 18 12/07/17 06:29 Blood Pressure 120/64 12/07/17 06:29 O2 Sat by Pulse Oximetry (%) Laboratory Last Values WBC 7.2 K/mm3 (4.0-10.0) 12/06/17 11:00 RBC 4.29 M/mm3 (4.00-5.60) 12/06/17 11:00 Hgb 13.6 GM/dL (11.7-16.9) 12/06/17 11:00 Hct 41.1 % (35.4-49) 12/06/17 11:00 MCV 95.7 fl (80-96) 12/06/17 11:00 MCH 31.7 pg (25.7-33.7) 12/06/17 11:00 MCHC 33.2 g/dl (32.0-35.9) 12/06/17 11:00 RDW 14.4 % (11.9-15.9) 12/06/17 11:00 Plt Count 219 K/MM3 (134-434) 12/06/17 11:00 MPV 9.0 fl (7.5-11.1) 12/06/17 11:00 Sodium 142 mmol/L (136-145) 12/06/17 11:00 Potassium 4.2 mmol/L (3.5-5.1) 12/06/17 11:00 Chloride 106 mmol/L (98-107) 12/06/17 11:00 Carbon Dioxide 28 mmol/L (21-32) 12/06/17 11:00 Anion Gap 8 (8-16) 12/06/17 11:00 BUN 13 mg/dL (7-18) 12/06/17 11:00 Creatinine 0.9 mg/dL (0.7-1.3) 12/06/17 11:00 Creat Clearance w eGFR > 60 (>60) 12/06/17 11:00 Random Glucose 118 mg/dL (74-106) H 12/06/17 11:00 Calcium 8.1 mg/dL (8.5-10.1) L 12/06/17 11:00 Total Bilirubin 0.5 mg/dL (0.2-1.0) D 12/06/17 11:00 AST 21 U/L (15-37) 12/06/17 11:00 ALT 31 U/L (12-78) D 12/06/17 11:00 Alkaline Phosphatase 63 U/L (45-117) 12/06/17 11:00 Total Protein 6.5 g/dl (6.4-8.2) 12/06/17 11:00 Albumin 3.2 g/dl (3.4-5.0) L 12/06/17 11:00 Urine Color Ltyellow 12/06/17 13:40 Urine Appearance Clear 12/06/17 13:40 Urine pH 7.0 (5.0-8.0) 12/06/17 13:40 Ur Specific [place] 1.018 (1.001-1.035) 12/06/17 13:40 Urine Protein Negative (NEGATIVE) 12/06/17 13:40 Urine Glucose (UA) Negative (NEGATIVE) 12/06/17 13:40 Urine Ketones Negative (NEGATIVE) 12/06/17 13:40 Urine Blood Negative (NEGATIVE) 12/06/17 13:40 Urine Nitrite Negative (NEGATIVE) 12/06/17 13:40 Urine Bilirubin Negative (<2.0 mg/dL) 12/06/17 13:40 Urine Urobilinogen 2.0 mg/dL (0.2-1.0) 12/06/17 13:40 Ur Leukocyte Esterase Negative (NEGATIVE) 12/06/17 13:40 RPR Titer Nonreactive (NONREACTIVE) 12/06/17 11:00 HIV 1&2 Antibody Screen Negative 12/06/17 11:00 HIV P24 Antigen Negative 12/06/17 11:00 Assessment: 12/07/17 10:11 WITHDRAWAL SYMPTOM LUNG CLEAR,BRONCHITIS 12/07/17 10:12 Plan: TO CONTINUE DETOX,AUGMENTIN 875 MGS PO BID FOR 7 DAYS
[2017-12-07] MEDS: PRENATAL VITAMINS W/ FOLIC ACID TABLET (FP) PO SCH (11:04)
[2017-12-07] MEDS: amLODIPine BESYLATE 5 MG TABLET (FP) PO SCH (11:04)
[2017-12-07] MEDS: NICOTINE 21 MG/24 HOURS TOPICAL PATCH TD SCH (11:05)
[2017-12-07] MEDS: VITAMINS A AND D TOPICAL OINTMENT 60 GM TUBE TP SCH ×2 (17:17→23:57)
[2017-12-07] MEDS: AMOX TR/POT CLAV 875MG/125MG TABLETS (FP) PO SCH (17:17)
[2017-12-07] MEDS: THIAMINE HCL 100 MG TABLET (FP) PO SCH (22:16)
[2017-12-07] MEDS: ZOLPIDEM TARTRATE 10 MG TABLET (PARK CARE ONLY) PO PRN (22:16)
[2017-12-08] MEDS: chlordiazePOXIDE 5 MG CAPSULE PO SCH ×4 (04:25→22:18)
[2017-12-08] MEDS: MENTHOL/PHENOL 1 EACH UD MM PRN (04:26)
[2017-12-08] MEDS: VITAMINS A AND D TOPICAL OINTMENT 60 GM TUBE TP SCH ×4 (06:55→23:19)
[2017-12-08] MEDS: AMOX TR/POT CLAV 875MG/125MG TABLETS (FP) PO SCH ×2 (07:21→17:51)
[2017-12-08] MEDS: amLODIPine BESYLATE 5 MG TABLET (FP) PO SCH (10:13)
[2017-12-08] MEDS: NICOTINE 21 MG/24 HOURS TOPICAL PATCH TD SCH (10:13)
[2017-12-08] MEDS: PRENATAL VITAMINS W/ FOLIC ACID TABLET (FP) PO SCH (10:13)
--- NOTE | 2017-12-08 12:02 | PN ---
S Progress Note (SOAP) Subjective: ALERT,IRRITABLE,INTERRUPTED SLEEP Objective: 12/08/17 12:00 Vital Signs Temperature 97.7 F 12/08/17 09:48 Pulse Rate 65 12/08/17 09:48 Respiratory Rate 18 12/08/17 09:48 Blood Pressure 126/76 12/08/17 09:48 O2 Sat by Pulse Oximetry (%) Assessment: 12/08/17 12:01 WITHDRAWAL SYMPTOM Plan: CONTINUE DETOX,DISCHARGE IN AM
[2017-12-08] MEDS: THIAMINE HCL 100 MG TABLET (FP) PO SCH (22:17)
[2017-12-08] MEDS: ZOLPIDEM TARTRATE 10 MG TABLET (PARK CARE ONLY) PO PRN (22:18)
[2017-12-09] MEDS: guaiFENesin/D-METHORPHAN HB 10 ML UNIT-DOSE CUPS PO PRN (04:37)
[2017-12-09] MEDS: chlordiazePOXIDE HCL 10 MG CAPSULE PO SCH ×2 (05:18→10:28)
[2017-12-09] MEDS: VITAMINS A AND D TOPICAL OINTMENT 60 GM TUBE TP SCH ×2 (05:18→12:01)
[2017-12-09 06:44] VITALS: TEMP 98.1
[2017-12-09] MEDS: AMOX TR/POT CLAV 875MG/125MG TABLETS (FP) PO SCH (07:26)
[2017-12-09 09:22] VITALS: BP 132/82; PULSE 74
[2017-12-09] MEDS: PRENATAL VITAMINS W/ FOLIC ACID TABLET (FP) PO SCH (10:27)
[2017-12-09] MEDS: NICOTINE 21 MG/24 HOURS TOPICAL PATCH TD SCH (10:27)
[2017-12-09] MEDS: amLODIPine BESYLATE 5 MG TABLET (FP) PO SCH (10:27)
--- NOTE | 2017-12-09 12:29 | PN ---
S Progress Note (SOAP) Subjective: DENIES ANY COMPLAINT Objective: 12/09/17 12:28 a & o X 3 Not in acute distress Ambulates steadily with a cane Vital Signs Temperature 98.1 F 12/09/17 09:22 Pulse Rate 74 12/09/17 09:22 Respiratory Rate 18 12/09/17 09:22 Blood Pressure 132/82 12/09/17 09:22 O2 Sat by Pulse Oximetry (%) Assessment: 12/09/17 12:29 Detox successfully completed Plan: for d/c
--- NOTE | 2017-12-09 12:42 | DS ---
[facility] Detox Discharge Summary Admission Date: 12/05/17 Discharge Date: 12/09/17 - History Additional Comments: Pt being discharged home, will do aftercare at his O/P program [facility] in [facility] Will call back tomorrow and the week for available rehab beds @ [facility] Unable to transmit electronic prescription to pharmacy, Prescription Augmentin 875mg and Norvasc 5mg therefore called in to pt's pharmacy [id number], praveenaameena ching [facility] [id number] @ Tel - [phone] Pharmacy info provided by pt's insurance pharmacy verification ( ) Pt informed, pharmacy info provided to him and he verbalized understanding - Physical Exam Results Vital Signs: Vital Signs Temperature 98.1 F 12/09/17 09:22 Pulse Rate 74 12/09/17 09:22 Respiratory Rate 18 12/09/17 09:22 Blood Pressure 132/82 12/09/17 09:22 O2 Sat by Pulse Oximetry (%) Pertinent Admission Physical Exam Findings: withdrawal sx - Treatment Hospital Course: Detox Protocol Followed, Detoxed Safely, Responded well, Discharged Condition Good Patient has Accepted a Rehab Referral to: O/P [facility] - Medication Discharge Medications: Ambulatory Orders Amlodipine Besylate 5 mg PO DAILY #30 tablet 12/08/17 Amox-Tr/K Cl [Augmentin 875-125mg Tablet -] 1 tab PO BID@0800,1730 #10 tablet - Diagnosis (1) Elevated blood pressure reading in office with diagnosis of hypertension Current Visit: Yes Status: Acute (2) Nicotine dependence Current Visit: Yes Status: Acute Qualifiers: Nicotine product type: cigarettes Substance use status: in withdrawal Qualified Code(s): F17.213 - Nicotine dependence, cigarettes, with withdrawal (3) Essential hypertension Current Visit: Yes Status: Chronic (4) Hepatitis C Current Visit: Yes Status: Chronic Qualifiers: Viral hepatitis chronicity: chronic Hepatic coma status: without hepatic coma Qualified Code(s): B18.2 - Chronic viral hepatitis C (5) Alcohol dependence with uncomplicated withdrawal Current Visit: No Status: Acute (6) Cocaine dependence, uncomplicated Current Visit: No Status: Acute (7) Use of cane as ambulatory aid Current Visit: No Status: Acute - AMA Did Patient Leave Against Medical Advice: No
== END 2017-12-09 13:30 | disposition home or self-care (01) | DRG 774 ==
LOC: YASAS 15:29 → Y6N 22:37
PROVIDERS: ADMIT Surgery; ATTEND Surgery
PROC: HZ2ZZZZ Detoxification Services for Substance Abuse Treatment (ICD-10-PCS; principal; 2017-12-05)
DX: F10.230 Alcohol dependence with withdrawal, uncomplicated (principal); F14.20 Cocaine dependence, uncomplicated; F17.213 Nicotine dependence, cigarettes, with withdrawal; I10 Essential (primary) hypertension; B18.2 Chronic viral hepatitis C; M25.562 Pain in left knee; G89.29 Other chronic pain; R26.89 Other abnormalities of gait and mobility; Z99.89 Dependence on other enabling machines and devices; Z63.4 Disappearance and death of family member; Z59.0 Homelessness
CPT/HCPCS: 36415; 80053; 81003; 85027; 86593; 87389; 93005; 93010

== ENCOUNTER 2018-06-18 09:31 | Inpatient (IN) | payer OTHER ==
[2018-06-18 09:42] VITALS: BMI 36.3
--- NOTE | 2018-06-18 12:33 | HP ---
CIWA Score - Admission Criteria OASAS Guidelines: Admission for Medically Managed Detox: Requires at least one of the followin. CIWA greater than 12 2. Seizures within the past 24 hours 3. Delirium tremens within the past 24 hours 4. Hallucinations within the past 24 hours 5. Acute intervention needed for co occurring medical disorder 6. Acute intervention needed for co occurring psychiatric disorder 7. Severe withdrawal that cannot be handled at a lower level of care (continued vomiting, continued diarrhea, abnormal vital signs) requiring intravenous medication and/or fluids 8. Admission ROS [facility] - HPI Chief Complaint: I am here for rehab from alcohol Allergies/Adverse Reactions: Allergies Allergy/AdvReac Type Severity Reaction Status Date / Time Fish Containing Products Allergy Severe Rash Verified 06/18/18 11:23 No Known Drug Allergies Allergy Verified 12/05/17 23:03 History of Present Illness: this 47 years old male from alcohol,for rehab,seen in [place] last night,last detox [facility] 06/10 completed history of hypertension no med hepatitis c treated nicotine dependence longest period of sobriety 6 months positive ppd Exam Limitations: No Limitations - Ebola screening Have you traveled outside of the country in the last 21 days: No Have you had contact with anyone from an Ebola affected area: No Have you been sick,other than usual withdrawal symptoms: No Do you have a fever: No - Review of Systems Constitutional: No Symptoms Reported EENT: reports: No Symptoms Reported Respiratory: reports: No Symptoms reported Cardiac: reports: No Symptoms Reported GI: reports: No Symptoms Reported : reports: No Symptoms Reported Musculoskeletal: reports: No Symptoms Reported Integumentary: reports: No Symptoms Reported Neuro: reports: No Symptoms reported Endocrine: reports: No Symptoms Reported Hematology: reports: No Symptoms Reported Psychiatric: reports: No Sypmtoms Reported, Judgement Intact, Mood/Affect Appropiate, Orientated x3 Patient History - Patient Medical History Hx Anemia: No Hx Asthma: No Hx Chronic Obstructive Pulmonary Disease (COPD): No Hx Cancer: No Hx Cardiac Disorders: No Hx Congestive Heart Failure: No Hx Hypertension: Yes (no medication) Hx Hypercholesterolemia: No Hx Pacemaker: No HX Cerebrovascular Accident: No Hx Seizures: No Hx Dementia: No Hx Diabetes: No Hx Gastrointestinal Disorders: No Hx Liver Disease: Yes (Hep C treated) Hx Genitourinary Disorders: No Hx Sexually Transmitted Disorders: No Hx Renal Disease (ESRD): No Hx Thyroid Disease: No Hx Human Immunodeficiency Virus (HIV): No ( [facility] NEGATIVE last 2017) Hx Hepatitis C: Yes (treated) Hx Depression: No Hx Suicide Attempt: No Hx Bipolar Disorder: No Hx Schizophrenia: No Other Medical History: no suicidal,no homicidal - Patient Surgical History Past Surgical History: No Hx Neurologic Surgery: No Hx Cataract Extraction: No Hx Cardiac Surgery: No Hx Lung Surgery: No Hx Breast Surgery: No Hx Breast Biopsy: No Hx Abdominal Surgery: No Hx Appendectomy: No Hx Cholecystectomy: No Hx Genitourinary Surgery: No Hx Section: No Hx Orthopedic Surgery: No Anesthesia Reaction: No - PPD History Previous Implant?: Yes Documented Results: Positive w/o proof Implanted On Prior [facility] Admission?: No Results: CXR(-)05/05/17 PPD to be Administered?: No - Smoking Cessation Smoking history: Current every day smoker Have you smoked in the past 12 months: Yes Aproximately how many cigarettes per day: 20 Hx Chewing Tobacco Use: No Initiated information on smoking cessation: Yes 'Breaking Loose' booklet given: 06/18/18 - Substance & Tx. History Hx Alcohol Use: Yes Hx Substance Use: No Substance Use Type: None, Alcohol Hx Substance Use Treatment: Yes ([facility] 06/10 completed) - Substances Abused Alcohol-vodka/beer Route: Oral Frequency: Daily Amount used: 2-3 pts./2-3 (24 oz.) Age of first use: 10 Date of Last Use: 06/11/18 Family Disease History - Family Disease History Family Disease History: Diabetes: Mother Admission Physical Exam S - Vital Signs Vital Signs: Vital Signs - 24 hr 06/18/18 09:35 Temperature 97.2 F L Pulse Rate 69 Respiratory 18 Rate Blood Pressure 139/80 - Physical General Appearance: Yes: Within Normal Limits HEENTM: Yes: Normal ENT Inspection, MINA, Pharynx Normal Respiratory: Yes: Lungs Clear, Normal Breath Sounds, No Respiratory Distress Neck: Yes: Within Normal Limits, Supple, Trachea in good position Breast: Yes: Within Normal Limits Cardiology: Yes: Within Normal Limits, Regular Rhythm, Regular Rate, S1, S2 Abdominal: Yes: Within Normal Limits, Normal Bowel Sounds, Non Tender, Flat, Soft Genitourinary: Yes: Within Normal Limits Back: Yes: Within Normal Limits Musculoskeletal: Yes: Within Normal Limits Extremities: Yes: Within Normal Limits Neurological: Yes: Within Normal Limits, slide maker II-XII NML intact, Fully Oriented, Alert, Motor Strength 5/5 Integumentary: Yes: Within Normal Limits Lymphatic: Yes: Within Normal Limits - Diagnostic (1) Alcohol dependence Current Visit: No Status: Acute (2) Nicotine dependence Current Visit: No Status: Acute Qualifiers: Nicotine product type: cigarettes Substance use status: in withdrawal Qualified Code(s): F17.213 - Nicotine dependence, cigarettes, with withdrawal (3) Essential hypertension Current Visit: No Status: Chronic Comment: non-compliant with meds (4) Hepatitis C Current Visit: No Status: Chronic Qualifiers: Viral hepatitis chronicity: chronic Hepatic coma status: without hepatic coma Qualified Code(s): B18.2 - Chronic viral hepatitis C (5) Insomnia Current Visit: Yes Status: Acute Cleared for Admission B[facility] - Detox or Rehab Claeared for Rehab Admission: Yes BHS Breath Alcohol Content Breath Alcohol Content: 0 Urine Drug Screen - Results Drug Screen Negative: Yes Inpatient Rehab Admission - Initial Determination Are CD services needed?: Yes Free of communicable disease: Yes Not in need of hospitalization: Yes - Rehab Admission Criteria Previous failed treatment: Yes Poor recovery environment: Yes Comorbidities: Yes Lacks judgement: No Patient is meeting Inpatient Rehab admission criteria:: Yes
[2018-06-18] MEDS ORDERED: guaiFENesin/D-METHORPHAN HB 10 ML UNIT-DOSE CUPS PO PRN (12:44)
[2018-06-18] MEDS ORDERED: MAGNESIUM HYDROX 2400MG/30ML ORAL SUSPENSION 30 ML CUP PO PRN (12:44)
[2018-06-18] MEDS ORDERED: P-EPHED 60MG/TRIPROLIDI 2.5MG TABLET PO PRN (12:44)
[2018-06-18] MEDS ORDERED: IBUPROFEN 400 MG TABLET (FP) PO PRN (12:44)
[2018-06-18] MEDS ORDERED: ACETAMINOPHEN 325 MG TABLET (FP) PO PRN (12:44)
[2018-06-18] MEDS ORDERED: LOPERAMIDE HCL 2 MG CAPSULE PO PRN (12:44)
[2018-06-18] MEDS ORDERED: MENTHOL/PHENOL 1 EACH UD MM PRN (12:44)
[2018-06-18] MEDS ORDERED: hydrOXYzine PAMOATE 50 MG CAPSULE (FP) PO PRN (12:44)
[2018-06-18] MEDS ORDERED: MAGNESIUM CITRATE 300 ML BOTTLE PO PRN (12:44)
[2018-06-18] MEDS: NICOTINE 21 MG/24 HOURS TOPICAL PATCH TD SCH (13:36)
[2018-06-18 14:35] LABS: HEMATOCRIT 43.5 % (35.4-49); HEMOGLOBIN 14.1 GM/dL (11.7-16.9); MCH 30.7 pg (25.7-33.7); MCHC 32.5 g/dl (32.0-35.9); MEAN CELL VOLUME 94.4 fl (80-96); MEAN PLT VOLUME 9.4 fl (7.5-11.1); PLATELET COUNT 223 K/MM3 (134-434); RBC 4.61 M/mm3 (4.00-5.60); RDW 14.3 % (11.9-15.9); WHITE BLOOD COUNT 9.1 K/mm3 (4.0-10.0)
[2018-06-18 14:58] LABS: ALBUMIN 3.9 g/dl (3.4-5.0); ALK PHOS 76 U/L (45-117); ANION GAP 6 MMOL/L (8-16); BILIRUBIN,TOTAL 0.5 mg/dL (0.2-1); BLOOD UREA NITROGEN 16 mg/dL (7-18); CHLORIDE 106 mmol/L (98-107); CO2 27 mmol/L (21-32); CREATININE 0.8 mg/dL (0.55-1.3); GLUCOSE,RANDOM 94 mg/dL (74-106); POTASSIUM 4.3 mmol/L (3.5-5.1); SGOT/AST 21 U/L (15-37); SGPT/ALT 26 U/L (13-61); SODIUM 139 mmol/L (136-145); TOT PROT 7.7 g/dl (6.4-8.2)
--- NOTE | 2018-06-18 15:24 | HP ---
Psychiatrist Admission - Data Date of interview: 06/18/18 Admission source: [facility] Identifying data: Patient is a 47 year old male without children, , unemployed, homeless, and is not receiving financial assistance. This is one of multiple admissions to rehab for patient. Patient admitted to rehab for alcohol dependence. Medical History: hypertension Psychiatric History: Patient reports taking zyprexa when he was at [facility] in his 's due to his depression. He denies h/o psychiatric hospitalization, outpatient care, and suicide attempt. Patient also accepted zyprexa 5mg when he was admitted to detox in November of 2017. Patient denies h/o psychotic symptoms. Physical/Sexual Abuse/Trauma History: denies. Vital Signs: Vital Signs - 24 hr 06/18/18 06/18/18 09:35 14:45 Temperature 97.2 F L 98.8 F Pulse Rate 69 69 Respiratory 18 18 Rate Blood Pressure 139/80 133/71 Allergies/Adverse Reactions: Allergies Allergy/AdvReac Type Severity Reaction Status Date / Time Fish Containing Products Allergy Severe Rash Verified 06/18/18 11:23 No Known Drug Allergies Allergy Verified 12/05/17 23:03 Date of last physical exam: 06/18/18 Concur with the findings of this exam: Yes - Substance Abuse/Tx History Hx Alcohol Use: Yes (2 pints daily + four 24 ounces daily) Hx Substance Use: No Hx Substance Use Treatment: Yes ([facility]) Mental Status Exam - Mental Status Exam Alert and Oriented to: Time, Place, Person Cognitive Function: Good Patient Appearance: Well Groomed Mood: Hopeful Affect: Appropriate Patient Behavior: Appropriate, Cooperative Speech Pattern: Clear, Appropriate Voice Loudness: Normal Thought Process: Intact, Goal Oriented Thought Disorder: Not Present Hallucinations: Denies Suicidal Ideation: Denies Homicidal Ideation: Denies Insight/Judgement: Poor Sleep: Fair Appetite: Fair Muscle strength/Tone: Normal Gait/Station: Normal Psychiatric Findings - Problem List ([place] 1, 2,3) (1) Alcohol dependence Current Visit: Yes Status: Acute (2) Nicotine dependence Current Visit: Yes Status: Acute Qualifiers: Nicotine product type: cigarettes Substance use status: in withdrawal Qualified Code(s): F17.213 - Nicotine dependence, cigarettes, with withdrawal (3) Insomnia Current Visit: Yes Status: Acute - Initial Treatment Plan Initial Treatment Plan: Psychoeducation provided. Rehab in progress. Patient made aware that melatonin 5mg is available for insomnia. Observation.
[2018-06-18] MEDS: MAG HYDROX/AL HYDROX/SIMETH 30 ML UNIT-DOSE CUP PO PRN (19:46)
[2018-06-18] MEDS: THIAMINE HCL 100 MG TABLET (FP) PO SCH (21:35)
[2018-06-18] MEDS ORDERED: MELATONIN 5 MG TABLETS PO PRN (22:00)
[2018-06-18 22:03] LABS: URINE APPEARANCE TURBID; URINE BILIRUBIN NEGATIVE (<2.0 mg/dL); URINE COLOR RED; URINE GLUCOSE (UA) NEGATIVE (NEGATIVE); URINE KETONE NEGATIVE (NEGATIVE); URINE LEUK ESTERASE NEGATIVE (NEGATIVE); URINE NITRITE NEGATIVE (NEGATIVE); URINE PROTEIN NEGATIVE (NEGATIVE); URINE UROBILINOGEN NEGATIVE mg/dL (0.2-1.0)
[2018-06-19] MEDS: MAG HYDROX/AL HYDROX/SIMETH 30 ML UNIT-DOSE CUP PO PRN ×3 (04:23→17:45)
[2018-06-19] MEDS: PRENATAL VITAMINS W/ FOLIC ACID TABLET (FP) PO SCH (10:09)
[2018-06-19] MEDS: NICOTINE 21 MG/24 HOURS TOPICAL PATCH TD SCH (10:09)
[2018-06-19] MEDS: BENZOCAINE 28 GM HEMORRHOIDAL OINTMENT PR SCH ×2 (17:22→21:21)
[2018-06-19] MEDS: VITAMINS A AND D TOPICAL OINTMENT 60 GM TUBE TP SCH (19:30)
--- NOTE | 2018-06-19 21:16 | PN ---
[facility] Progress Note Note: Pt states he has history of hemorrhoids and has a recurrence now. Says he has a lot of pain with BM. Wants medicatiions. d/w pt to increase fluid intake, increase fiber in diet, and not to strain with BM. Exercise may also help. Treatment started with anusol and benzocaine. Pt also requesting a and d ointment- done
[2018-06-19] MEDS: HYDROCORTISONE 2.5% TOPICAL CREAM 30 GM TUBE TP SCH (21:24)
[2018-06-19] MEDS: THIAMINE HCL 100 MG TABLET (FP) PO SCH (21:24)
[2018-06-20] MEDS: VITAMINS A AND D TOPICAL OINTMENT 60 GM TUBE TP SCH ×4 (00:41→17:58)
[2018-06-20] MEDS: BENZOCAINE 28 GM HEMORRHOIDAL OINTMENT PR SCH ×2 (09:44→21:17)
[2018-06-20] MEDS: HYDROCORTISONE 2.5% TOPICAL CREAM 30 GM TUBE TP SCH ×2 (09:44→22:13)
[2018-06-20] MEDS: PRENATAL VITAMINS W/ FOLIC ACID TABLET (FP) PO SCH (09:50)
[2018-06-20] MEDS: NICOTINE 21 MG/24 HOURS TOPICAL PATCH TD SCH (10:40)
[2018-06-20] MEDS: MAG HYDROX/AL HYDROX/SIMETH 30 ML UNIT-DOSE CUP PO PRN (14:44)
[2018-06-20] MEDS: THIAMINE HCL 100 MG TABLET (FP) PO SCH (21:16)
[2018-06-21] MEDS: VITAMINS A AND D TOPICAL OINTMENT 60 GM TUBE TP SCH ×5 (07:00→23:40)
[2018-06-21] MEDS: PRENATAL VITAMINS W/ FOLIC ACID TABLET (FP) PO SCH (10:24)
[2018-06-21] MEDS: HYDROCORTISONE 2.5% TOPICAL CREAM 30 GM TUBE TP SCH ×2 (10:24→22:10)
[2018-06-21] MEDS: NICOTINE 21 MG/24 HOURS TOPICAL PATCH TD SCH (10:24)
[2018-06-21] MEDS: BENZOCAINE 28 GM HEMORRHOIDAL OINTMENT PR SCH ×2 (10:51→22:10)
--- NOTE | 2018-06-21 13:20 | PN ---
S Progress Note Note: PT REPORTS THAT HE HAD A CUT FROM SCISSORS LEFT MIDDLE FINGER WHILE CLEANING THE SCISSORS IN THE DAY ROOM. Vital Signs 06/21/18 06:45 Temperature 97.9 F Pulse Rate 82 Respiratory 18 Rate Blood Pressure 139/89 LEFT MIDDLE FINGER:NO BLEEDING NOTED. NO RDNESS OR SWELLING. MINUTE SUPERFICIAL SKIN BREAK NOTED. PLAN; CLAEN AREA WITH WATER APPLY BACITRACIN OINTMENT COVER WITH BANDAID DAILY.
[2018-06-21] MEDS: BACITRACIN 0.9 GM PACKET TP SCH (14:17)
[2018-06-21] MEDS: THIAMINE HCL 100 MG TABLET (FP) PO SCH (21:16)
[2018-06-22] MEDS: VITAMINS A AND D TOPICAL OINTMENT 60 GM TUBE TP SCH ×2 (05:57→13:07)
[2018-06-22 06:38] VITALS: BP 135/86; PULSE 69; TEMP 98.6
[2018-06-22] MEDS: BACITRACIN 0.9 GM PACKET TP SCH (10:00)
[2018-06-22] MEDS: PRENATAL VITAMINS W/ FOLIC ACID TABLET (FP) PO SCH (10:00)
[2018-06-22] MEDS: BENZOCAINE 28 GM HEMORRHOIDAL OINTMENT PR SCH (10:01)
[2018-06-22] MEDS: HYDROCORTISONE 2.5% TOPICAL CREAM 30 GM TUBE TP SCH (10:03)
[2018-06-22] MEDS: NICOTINE 21 MG/24 HOURS TOPICAL PATCH TD SCH (10:03)
--- NOTE | 2018-06-22 16:09 | PN ---
Psychiatric Progress Note Vital Signs: Vital Signs Period Temp Pulse Resp BP Sys/Contreras Pulse Ox Last 24 Hr 98.6 F 69 18-18 135/86 Date of Session: 06/22/18 Chief Complaint:: I need to talk" HPI: Alcohol dependence ,Cannabis abuse comorbid with Bipolar disordere. Current Medications: Active Medications Generic Name Dose Route Start Last Admin Trade Name Freq PRN Reason Stop Dose Admin Acetaminophen 650 mg 06/18/18 12:44 Tylenol - PO Q4H PRN FEVER Al Hydroxide/Mg Hydroxide 30 ml 06/18/18 12:44 06/20/18 14:44 Mylanta Oral Suspension - PO 30 ml Q6H PRN Administration DYSPEPSIA Bacitracin 0.9 gm 06/21/18 14:00 06/22/18 10:00 Bacitracin - TP 0.9 gm DAILY EDVIN Administration Benzocaine 1 applic 06/19/18 15:29 06/22/18 10:01 Americaine Ointment - [place] 1 applic BID EDVIN Administration Eucalyptus/Menthol/Phenol/Sorbitol 1 each 06/18/18 12:44 Cepastat Lozenge - MM Q4H PRN SORE THROAT Guaifenesin 10 ml 06/18/18 12:44 Robitussin Dm - PO Q6H PRN COUGH Hydrocortisone 1 applic 06/19/18 22:00 06/22/18 10:03 Anusol 2.5% Hc Cream - TP 1 applic BID EDVIN Administration Hydroxyzine Pamoate 50 mg 06/18/18 12:44 Vistaril - PO Q4H PRN AGITATION Ibuprofen 400 mg 06/18/18 12:44 06/19/18 13:47 Motrin - PO 400 mg Q6H PRN Administration Pain level 4-6 Loperamide HCl 4 mg 06/18/18 12:44 Imodium - PO Q6H PRN DIARRHEA Magnesium Citrate 300 ml 06/18/18 12:44 Citroma - PO Q48H PRN CONSTIPATION Magnesium Hydroxide 30 ml 06/18/18 12:44 Milk Of Magnesia - PO DAILY PRN CONSTIPATION Melatonin 5 mg 06/18/18 22:00 06/18/18 21:35 Melatonin PO 5 mg HS PRN Administration INSOMNIA Nicotine 21 mg 06/18/18 13:45 06/22/18 10:03 Nicoderm Patch - TD Not Given DAILY EDVIN Multivit/Folic Acid/Iron 1 tab 06/19/18 10:00 06/22/18 10:00 Vitamins ([facility]) - PO 1 tab DAILY EDVIN Administration Pseudoephedrine/Triprolidine 1 combo 06/18/18 12:44 Actifed - PO TID PRN NASAL CONGESTION Thiamine HCl 100 mg 06/18/18 22:00 06/21/18 21:16 Vitamin B1 - PO 100 mg HS EDVIN Administration Vitamin A/Vitamin D 1 applic 06/19/18 18:00 06/22/18 13:07 Vitamin A & D Top Oint - TP Not Given Q6HPO EDVIN Current Side Effect: No Lab tests ordered: No Lab tests reviewed: Yes Provider note:: Chart was revuwed ,Psychiatric attending's note has been read and appreciated.Met with the patient who wanted to talked about his issues in ths unit and other facilities at present and in the past.Patient reports that he is not really appreciated by the staff and other patients when he is sharing his holiness believes.Discuss with the patient rules and regulations of this facility.He realized that it wasnt really appropriate taking too much time to share his thoutghs,that he is not the only one in this unit and he needs to understand that other patients want to share their issues as well.Patient expressed understanding and is willing to be cooperate with the staff and others. Supportive therapy provided.Patient will continue current medications as per plan. Mental Status Exam - Mental Status Exam Alert and Oriented to: Time, Place, Person Cognitive Function: Grossly Intact Patient Appearance: Well Groomed Mood: Elated Affect: Labile Patient Behavior: Talkative, Cooperative Speech Pattern: Clear Voice Loudness: Normal Thought Process: Goal Oriented Thought Disorder: Present Hallucinations: Denies Suicidal Ideation: Denies Homicidal Ideation: Denies Insight/Judgement: Fair Sleep: Fair Appetite: Good Muscle strength/Tone: Normal Gait/Station: Normal Psychiatric Treatment Plan - Problem List (1) Alcohol dependence Current Visit: Yes (2) Nicotine dependence Current Visit: Yes Qualifiers: Nicotine product type: cigarettes Substance use status: in withdrawal Qualified Code(s): F17.213 - Nicotine dependence, cigarettes, with withdrawal (3) Bipolar disorder Current Visit: No (4) Cannabis abuse Current Visit: No
== END 2018-06-22 04:10 | disposition left against medical advice (07) | DRG 770 ==
LOC: YASAS 09:31 → Y5N 12:51
PROVIDERS: ADMIT Psychiatry & Neurology Psychiatry; ATTEND Psychiatry & Neurology Psychiatry
PROC: HZ40ZZZ Group Counseling for Substance Abuse Treatment, Cognitive (ICD-10-PCS; principal; 2018-06-18)
DX: F10.20 Alcohol dependence, uncomplicated (principal); F12.10 Cannabis abuse, uncomplicated; F17.210 Nicotine dependence, cigarettes, uncomplicated; G47.00 Insomnia, unspecified; I10 Essential (primary) hypertension; B18.2 Chronic viral hepatitis C; S61.213A Laceration without foreign body of left middle finger without damage to nail, initial encounter; W27.2XXA Contact with scissors, initial encounter; Y93.89 Activity, other specified; Y92.238 Other place in hospital as the place of occurrence of the external cause; Y99.8 Other external cause status
CPT/HCPCS: 36415; 71046-TC-FY; 80053; 81003; 85027; 86593

== ENCOUNTER 2019-02-21 08:42 | Inpatient (IN) | payer OTHER | END 2019-02-24 12:50 | disposition home or self-care (01) | LOC: YASAS 08:42 → Y3N 11:48 ==

== ENCOUNTER 2019-05-17 14:07 | Inpatient (IN) | payer OTHER ==
[2019-05-17 18:43] VITALS: BMI 33.9
--- NOTE | 2019-05-17 21:17 | HP ---
CIWA Score Nausea/Vomitin Muscle Tremors: 3 Anxiety: 3 Agitation: 1-Slight > Activity Paroxysmal Sweats: 3 Orientation: 0-Oriented Tacttile Disturbances: 0-None Auditory Disturbances: 0-None Visual Disturbances: 0-None Headache: 0-None Present CIWA-Ar Total Score: 13 - Admission Criteria OASAS Guidelines: Admission for Medically Managed Detox: Requires at least one of the followin. CIWA greater than 12 2. Seizures within the past 24 hours 3. Delirium tremens within the past 24 hours 4. Hallucinations within the past 24 hours 5. Acute intervention needed for co occurring medical disorder 6. Acute intervention needed for co occurring psychiatric disorder 7. Severe withdrawal that cannot be handled at a lower level of care (continued vomiting, continued diarrhea, abnormal vital signs) requiring intravenous medication and/or fluids 8. Admitting History and Physical - Smoking History Smoking history: Current every day smoker Have you smoked in the past 12 months: Yes Aproximately how many cigarettes per day: 20 - Alcohol/Substance Use Hx Alcohol Use: Yes Admission ROS [facility] Chief Complaint: Seeking admission to detox from alcohol Allergies/Adverse Reactions: Allergies Allergy/AdvReac Type Severity Reaction Status Date / Time Fish Containing Products Allergy Severe Rash Verified 05/17/19 18:35 No Known Drug Allergies Allergy Verified 02/21/19 09:33 History of Present Illness: 48 years old male with a long history of alcohol dependence is seeking admission to detox. Patient has been admitted multiple times to detox and reports insignificant period of sobriety. He has medical history of hypertension , Hep. C and cirrhosis of the liver. He denies suicidal ideation at this time. - Ebola screening Have you traveled outside of the country in the last 21 days: No (N) Have you had contact with anyone from an Ebola affected area: No Do you have a fever: No - Review of Systems Constitutional: Chills, Malaise, Night Sweats, Changes in sleep, Weakness EENT: reports: No Symptoms Reported Respiratory: reports: No Symptoms reported Cardiac: reports: No Symptoms Reported GI: reports: Vomiting, Abdominal cramping : reports: No Symptoms Reported Musculoskeletal: reports: No Symptoms Reported Integumentary: reports: Flushing Neuro: reports: Tingling, Tremors Endocrine: reports: No Symptoms Reported Hematology: reports: No Symptoms Reported Psychiatric: reports: No Sypmtoms Reported, Judgement Intact, Orientated x3 Other Systems: Reviewed and Negative Patient History - Patient Medical History Hx Anemia: No Hx Asthma: No Hx Chronic Obstructive Pulmonary Disease (COPD): No Hx Cancer: No Hx Cardiac Disorders: No Hx Congestive Heart Failure: No Hx Hypertension: Yes (Not medication) Hx Hypercholesterolemia: No Hx Pacemaker: No HX Cerebrovascular Accident: No Hx Seizures: No Hx Dementia: No Hx Diabetes: No Hx Gastrointestinal Disorders: No Hx Liver Disease: Yes (Hep C ) Hx Genitourinary Disorders: No Hx Sexually Transmitted Disorders: No Hx Renal Disease (ESRD): No Hx Thyroid Disease: No Hx Human Immunodeficiency Virus (HIV): No ( [facility] NEGATIVE last 2017) Hx Hepatitis C: Yes (Not treated) Hx Depression: No Hx Suicide Attempt: No Hx Bipolar Disorder: No Hx Schizophrenia: No Other Medical History: Cirrhosis of the liver - Patient Surgical History Past Surgical History: No - PPD History Results: CXR(-)05/05/17 PPD to be Administered?: No - Reproductive History Patient is a Female of Child Bearing Age (11 -55 yrs old): No (male) - Smoking Cessation Smoking history: Current every day smoker Have you smoked in the past 12 months: Yes Aproximately how many cigarettes per day: 20 Hx Chewing Tobacco Use: No Initiated information on smoking cessation: Yes 'Breaking Loose' booklet given: 05/17/19 - Substance & Tx. History Hx Alcohol Use: Yes Hx Substance Use: Yes Substance Use Type: Alcohol, Cocaine Hx Substance Use Treatment: Yes ([facility]) - Substances abused Alcohol Substance route: Oral Frequency: Daily Amount used: 2 1/2 pints of vodka/4 of 24 ozs of beer Age of first use: 10 Date of last use: 05/17/19 Marijuana/Hashish Substance route: Smoking Frequency: Daily Amount used: 3-4 blunts Age of first use: 10 Date of last use: 05/15/19 Heroin Substance route: Injection Frequency: 1-2 times per week Amount used: 2bags Age of first use: 21 Date of last use: 05/15/19 Admission Physical Exam [facility] - Vital Signs Vital Signs: Vital Signs - 24 hr 05/17/19 18:37 Temperature 98.1 F Pulse Rate 69 Respiratory 18 Rate Blood Pressure 176/86 H - Physical General Appearance: Yes: Within Normal Limits, Mild Distress HEENTM: Yes: Within Normal Limits, EOMI, Normocephalic, Normal Voice, MINA Respiratory: Yes: Lungs Clear, Normal Breath Sounds, No Respiratory Distress Breast: Yes: Within Normal Limits Cardiology: Yes: Regular Rhythm, Regular Rate Abdominal: Yes: Normal Bowel Sounds Genitourinary: Yes: Within Normal Limits Back: Yes: Normal Inspection Extremities: Yes: Tremors Neurological: Yes: Alert, Normal Mood/Affect Integumentary: Yes: Warm Lymphatic: Yes: Within Normal Limits - Diagnostic (1) Alcohol dependence with uncomplicated withdrawal Current Visit: Yes Status: Acute (2) Cannabis abuse Current Visit: Yes Status: Chronic (3) Nicotine dependence Current Visit: Yes Status: Chronic Qualifiers: Nicotine product type: cigarettes Substance use status: in withdrawal Qualified Code(s): F17.213 - Nicotine dependence, cigarettes, with withdrawal (4) Essential hypertension Current Visit: Yes Status: Chronic Comment: non-compliant with meds (5) Hepatitis C Current Visit: Yes Status: Chronic Qualifiers: Viral hepatitis chronicity: chronic Hepatic coma status: with hepatic coma Qualified Code(s): B18.2 - Chronic viral hepatitis C Cleared for Admission S - Detox or Rehab [facility] Level of Care: Medically Managed Detox Regimen/Protocol: Librium Breathalyzer - Breathalyzer Breathalyzer: 0 Urine Drug Screen - Test Device Lot number: [id number] Expiration date: 12/21/20 - Control Is test valid?: Yes - Results Drug screen NEGATIVE: No Urine drug screen results: BARBER-Cocaine Inpatient Rehab Admission - Rehab Decision to Admit Inpatient rehab admission?: No
[2019-05-17] MEDS ORDERED: BISMUTH SUBSALICYLATE 524 MG/30 ML UD PO PRN (21:33)
[2019-05-17] MEDS ORDERED: MENTHOL/PHENOL 1 EACH UD MM PRN (21:33)
[2019-05-17] MEDS ORDERED: ACETAMINOPHEN 325 MG TABLET (FP) PO PRN ×2 (21:33)
[2019-05-17] MEDS ORDERED: hydrOXYzine PAMOATE 25 MG CAPSULE (FP) PO PRN (21:33)
[2019-05-17] MEDS ORDERED: METHOCARBAMOL 500 MG TABLET PO PRN (21:33)
[2019-05-17] MEDS ORDERED: MAG HYDROX/AL HYDROX/SIMETH 30 ML UNIT-DOSE CUP PO PRN (21:33)
[2019-05-17] MEDS ORDERED: MAGNESIUM CITRATE 300 ML BOTTLE PO PRN (21:33)
[2019-05-17] MEDS ORDERED: chlordiazePOXIDE HCL 10 MG CAPSULE PO PRN (21:33)
[2019-05-17] MEDS ORDERED: IBUPROFEN 400 MG TABLET (FP) PO PRN (21:33)
[2019-05-17] MEDS ORDERED: MAGNESIUM HYDROX 2400MG/30ML ORAL SUSPENSION 30 ML CUP PO PRN (21:33)
[2019-05-17] MEDS: chlordiazePOXIDE HCL 25 MG CAPSULE PO SCH (23:25)
[2019-05-17] MEDS: THIAMINE HCL 100 MG TABLET (FP) PO SCH (23:26)
[2019-05-17] MEDS: MELATONIN 5 MG TABLETS PO PRN (23:28)
[2019-05-18] MEDS: chlordiazePOXIDE HCL 25 MG CAPSULE PO SCH ×3 (06:13→22:47)
[2019-05-18] MEDS: PRENATAL VITAMINS W/ FOLIC ACID TABLET (FP) PO SCH (10:20)
[2019-05-18] MEDS ORDERED: ONDANSETRON *ODT* 4 MG TABLET SL PRN (10:46)
[2019-05-18] MEDS ORDERED: PNEUMOC 13-VAL CONJ-DIP CRM/PF 0.5 ML DISP.SYRIN IM ONE (12:00)
[2019-05-18] MEDS ORDERED: FLU VACCINE QUAD 60 MCG/0.5 ML (MDV 19-20) IM ONE (12:00)
[2019-05-18 12:28] LABS: ALBUMIN 3.9 g/dl (3.4-5.0); BILIRUBIN,TOTAL 0.8 mg/dL (0.2-1); BLOOD UREA NITROGEN 11.8 mg/dL (7-18); CALCIUM 8.9 mg/dL (8.5-10.1); CREATININE 0.9 mg/dL (0.55-1.3); HEMATOCRIT 42.6 % (35.4-49); HEMOGLOBIN 14.3 GM/dL (11.7-16.9); MCHC 33.6 g/dl (32.0-35.9); MEAN CELL VOLUME 95.1 fl (80-96); MEAN PLT VOLUME 9.4 fl (7.5-11.1); PLATELET COUNT 248 K/MM3 (134-434); POTASSIUM 4.1 mmol/L (3.5-5.1); RBC 4.49 M/mm3 (4.00-5.60); RDW 14.4 % (11.9-15.9); TOT PROT 7.1 g/dl (6.4-8.2); WHITE BLOOD COUNT 6.9 K/mm3 (4.0-10.0)
[2019-05-18] MEDS: VITAMINS A AND D TOPICAL OINTMENT 60 GM TUBE TP SCH ×3 (13:21→23:55)
--- NOTE | 2019-05-18 14:09 | EKG ---
Test Reason : Blood Pressure : / mmHG Vent. Rate : 068 BPM Atrial Rate : 068 BPM P-R Int : 152 ms QRS Dur : 088 ms QT Int : 390 ms P-R-T Axes : 004 060 049 degrees QTc Int : 414 ms NORMAL SINUS RHYTHM NORMAL ECG WHEN COMPARED WITH ECG OF 06-DEC-2017 01:31, NO SIGNIFICANT CHANGE WAS FOUND Confirmed by CHAVEZ DENISE MD ([id number]) on 05/18/2019 2:08:40 PM Referred By: FILIPPO BOYKIN Confirmed By:CHAVEZ DENISE MD
--- NOTE | 2019-05-18 15:30 | PN ---
S CIWA - CIWA Score Nausea/Vomitin Muscle Tremors: None Anxiety: 3 Agitation: 3 Paroxysmal Sweats: 2 Orientation: 0-Oriented Tacttile Disturbances: 2-Mild Itch/Numbness/Burn Auditory Disturbances: 0-None Visual Disturbances: 0-None Headache: 0-None Present CIWA-Ar Total Score: 13 BHS Progress Note (SOAP) Subjective: Anxious, Nausea, Sweating. Objective: PATIENT A & O X 3, OBSERVED AMBULATING ON DETOX UNIT UNASSISTED. IN NO ACUTE DISTRESS. 05/18/19 15:30 Vital Signs Temperature 98.3 F 05/18/19 09:31 Pulse Rate 88 05/18/19 09:31 Respiratory Rate 18 05/18/19 09:31 Blood Pressure 133/74 05/18/19 09:31 O2 Sat by Pulse Oximetry (%) Laboratory Tests 05/18/19 05/18/19 05/18/19 07:55 07:55 07:55 WBC 6.9 RBC 4.49 Hgb 14.3 Hct 42.6 MCV 95.1 MCH 32.0 MCHC 33.6 RDW 14.4 Plt Count 248 MPV 9.4 Sodium 141 Potassium 4.1 Chloride 107 Carbon Dioxide 25 Anion Gap 8 BUN 11.8 Creatinine 0.9 Est GFR (CKD-EPI)AfAm 116.65 Est GFR (CKD-EPI)NonAf 100.64 Random Glucose 93 Calcium 8.9 Total Bilirubin 0.8 AST 11 L ALT 16 Alkaline Phosphatase 68 Total Protein 7.1 Albumin 3.9 RPR Titer Nonreactive HIV 1&2 Antibody Screen HIV P24 Antigen 05/18/19 07:55 WBC RBC Hgb Hct MCV MCH MCHC RDW Plt Count MPV Sodium Potassium Chloride Carbon Dioxide Anion Gap BUN Creatinine Est GFR (CKD-EPI)AfAm Est GFR (CKD-EPI)NonAf Random Glucose Calcium Total Bilirubin AST ALT Alkaline Phosphatase Total Protein Albumin RPR Titer HIV 1&2 Antibody Screen Negative HIV P24 Antigen Negative LABS NOTED. Assessment: 05/18/19 15:30 WITHDRAWAL SYMPTOMS. Plan: CONTINUE DETOX.
[2019-05-18] MEDS: MELATONIN 5 MG TABLETS PO PRN (22:47)
[2019-05-18] MEDS: THIAMINE HCL 100 MG TABLET (FP) PO SCH (22:47)
[2019-05-19] MEDS: chlordiazePOXIDE 5 MG CAPSULE PO SCH ×3 (05:20→22:36)
[2019-05-19] MEDS: VITAMINS A AND D TOPICAL OINTMENT 60 GM TUBE TP SCH ×4 (07:52→23:04)
--- NOTE | 2019-05-19 09:09 | PN ---
[facility] CIWA - CIWA Score Nausea/Vomitin-Mild Nausea/No Vomiting Muscle Tremors: 2 Anxiety: 2 Agitation: 2 Paroxysmal Sweats: 1-Minimal Palms Moist Orientation: 0-Oriented Tacttile Disturbances: 1-Very Mild Itch/Numbness Auditory Disturbances: 1-Very Mild Visual Disturbances: 0-None Headache: 0-None Present CIWA-Ar Total Score: 10 BHS Progress Note (SOAP) Subjective: 48 years old male admitted on 05/17/19 for alcohol withdrawal sx management treated with librium detox regimen tolerate well at this time resting on bed comfortably mild tremor less anxious Objective: 05/19/19 09:07 Vital Signs Temperature 97.9 F 05/19/19 09:01 Pulse Rate 65 05/19/19 09:01 Respiratory Rate 18 05/19/19 09:01 Blood Pressure 133/83 05/19/19 09:01 O2 Sat by Pulse Oximetry (%) Laboratory Last Values WBC 6.9 K/mm3 (4.0-10.0) 05/18/19 07:55 RBC 4.49 M/mm3 (4.00-5.60) 05/18/19 07:55 Hgb 14.3 GM/dL (11.7-16.9) 05/18/19 07:55 Hct 42.6 % (35.4-49) 05/18/19 07:55 MCV 95.1 fl (80-96) 05/18/19 07:55 MCH 32.0 pg (25.7-33.7) 05/18/19 07:55 MCHC 33.6 g/dl (32.0-35.9) 05/18/19 07:55 RDW 14.4 % (11.9-15.9) 05/18/19 07:55 Plt Count 248 K/MM3 (134-434) 05/18/19 07:55 MPV 9.4 fl (7.5-11.1) 05/18/19 07:55 Sodium 141 mmol/L (136-145) 05/18/19 07:55 Potassium 4.1 mmol/L (3.5-5.1) 05/18/19 07:55 Chloride 107 mmol/L (98-107) 05/18/19 07:55 Carbon Dioxide 25 mmol/L (21-32) 05/18/19 07:55 Anion Gap 8 MMOL/L (8-16) 05/18/19 07:55 BUN 11.8 mg/dL (7-18) 05/18/19 07:55 Creatinine 0.9 mg/dL (0.55-1.3) 05/18/19 07:55 Est GFR (CKD-EPI)AfAm 116.65 05/18/19 07:55 Est GFR (CKD-EPI)NonAf 100.64 05/18/19 07:55 Random Glucose 93 mg/dL (74-106) 05/18/19 07:55 Calcium 8.9 mg/dL (8.5-10.1) 05/18/19 07:55 Total Bilirubin 0.8 mg/dL (0.2-1) 05/18/19 07:55 AST 11 U/L (15-37) L 05/18/19 07:55 ALT 16 U/L (13-61) 05/18/19 07:55 Alkaline Phosphatase 68 U/L (45-117) 05/18/19 07:55 Total Protein 7.1 g/dl (6.4-8.2) 05/18/19 07:55 Albumin 3.9 g/dl (3.4-5.0) 05/18/19 07:55 RPR Titer Nonreactive (NONREACTIVE) 05/18/19 07:55 HIV 1&2 Antibody Screen Negative 05/18/19 07:55 HIV P24 Antigen Negative 05/18/19 07:55 lab noted Assessment: 05/19/19 09:08 alcohol withdrawal sx Plan: continue librium detox regimen
[2019-05-19] MEDS: PRENATAL VITAMINS W/ FOLIC ACID TABLET (FP) PO SCH (10:16)
[2019-05-19] MEDS: THIAMINE HCL 100 MG TABLET (FP) PO SCH (22:36)
[2019-05-19] MEDS: MELATONIN 5 MG TABLETS PO PRN (22:37)
[2019-05-19] MEDS: guaiFENesin 200 MG/10 ML 10 ML UNIT-DOSE CUPS PO PRN (23:05)
[2019-05-20] MEDS ORDERED: chlordiazePOXIDE HCL 10 MG CAPSULE PO PRN
[2019-05-20] MEDS: VITAMINS A AND D TOPICAL OINTMENT 60 GM TUBE TP SCH ×3 (05:33→20:39)
[2019-05-20] MEDS: chlordiazePOXIDE HCL 10 MG CAPSULE PO SCH ×3 (05:33→22:01)
[2019-05-20] MEDS: guaiFENesin 200 MG/10 ML 10 ML UNIT-DOSE CUPS PO PRN ×2 (05:34→22:03)
[2019-05-20] MEDS: PRENATAL VITAMINS W/ FOLIC ACID TABLET (FP) PO SCH (10:05)
--- NOTE | 2019-05-20 13:21 | PN ---
S CIWA - CIWA Score Nausea/Vomitin-No Nausea/No Vomiting Muscle Tremors: 2 Anxiety: 2 Agitation: 2 Paroxysmal Sweats: No Perspiration Orientation: 0-Oriented Tacttile Disturbances: 0-None Auditory Disturbances: 0-None Visual Disturbances: 0-None Headache: 0-None Present CIWA-Ar Total Score: 6 [facility] Progress Note (SOAP) Subjective: 48 years old male admitted on 05/17/19 for alcohol withdrawal sx management treated with librium detox regimen patient tolerated well feeling better today ambulating on hallway sleep better at night Objective: 05/20/19 13:21 Vital Signs Temperature 97.7 F 05/20/19 09:11 Pulse Rate 76 05/20/19 09:11 Respiratory Rate 16 05/20/19 09:11 Blood Pressure 139/83 05/20/19 09:11 O2 Sat by Pulse Oximetry (%) Laboratory Last Values WBC 6.9 K/mm3 (4.0-10.0) 05/18/19 07:55 RBC 4.49 M/mm3 (4.00-5.60) 05/18/19 07:55 Hgb 14.3 GM/dL (11.7-16.9) 05/18/19 07:55 Hct 42.6 % (35.4-49) 05/18/19 07:55 MCV 95.1 fl (80-96) 05/18/19 07:55 MCH 32.0 pg (25.7-33.7) 05/18/19 07:55 MCHC 33.6 g/dl (32.0-35.9) 05/18/19 07:55 RDW 14.4 % (11.9-15.9) 05/18/19 07:55 Plt Count 248 K/MM3 (134-434) 05/18/19 07:55 MPV 9.4 fl (7.5-11.1) 05/18/19 07:55 Sodium 141 mmol/L (136-145) 05/18/19 07:55 Potassium 4.1 mmol/L (3.5-5.1) 05/18/19 07:55 Chloride 107 mmol/L (98-107) 05/18/19 07:55 Carbon Dioxide 25 mmol/L (21-32) 05/18/19 07:55 Anion Gap 8 MMOL/L (8-16) 05/18/19 07:55 BUN 11.8 mg/dL (7-18) 05/18/19 07:55 Creatinine 0.9 mg/dL (0.55-1.3) 05/18/19 07:55 Est GFR (CKD-EPI)AfAm 116.65 05/18/19 07:55 Est GFR (CKD-EPI)NonAf 100.64 05/18/19 07:55 Random Glucose 93 mg/dL (74-106) 05/18/19 07:55 Calcium 8.9 mg/dL (8.5-10.1) 05/18/19 07:55 Total Bilirubin 0.8 mg/dL (0.2-1) 05/18/19 07:55 AST 11 U/L (15-37) L 05/18/19 07:55 ALT 16 U/L (13-61) 05/18/19 07:55 Alkaline Phosphatase 68 U/L (45-117) 05/18/19 07:55 Total Protein 7.1 g/dl (6.4-8.2) 05/18/19 07:55 Albumin 3.9 g/dl (3.4-5.0) 05/18/19 07:55 RPR Titer Nonreactive (NONREACTIVE) 05/18/19 07:55 HIV 1&2 Antibody Screen Negative 05/18/19 07:55 HIV P24 Antigen Negative 05/18/19 07:55 lab noted Assessment: 05/20/19 13:21 alcohol withdrawal sx Plan: continue librium detox regimen
[2019-05-20] MEDS: MELATONIN 5 MG TABLETS PO PRN (22:02)
[2019-05-20] MEDS: THIAMINE HCL 100 MG TABLET (FP) PO SCH (22:02)
[2019-05-21] MEDS: VITAMINS A AND D TOPICAL OINTMENT 60 GM TUBE TP SCH ×2 (01:08→05:14)
[2019-05-21] MEDS ORDERED: chlordiazePOXIDE HCL 10 MG CAPSULE PO ONE (05:00)
[2019-05-21 09:03] VITALS: BP 129/71; PULSE 98; TEMP 97.4
[2019-05-21] MEDS: PRENATAL VITAMINS W/ FOLIC ACID TABLET (FP) PO SCH (10:04)
--- NOTE | 2019-05-21 12:06 | DS ---
[facility] Detox Discharge Summary Admission Date: 05/17/19 Discharge Date: 05/21/19 - History Present History: Alcohol Dependence Additional Comments: 48 years old male admitted on 05/17/19 for alcohol withdrawal sx management treated with librium detox regimen patient is alert oriented x 3 cardiac S1S2 regular rate rhythm respiratory clear lung bilaterally on auscultation abdomen soft round no rebound tenderness - Physical Exam Results Vital Signs: Vital Signs Temperature 97.4 F L 05/21/19 09:00 Pulse Rate 98 H 05/21/19 09:00 Respiratory Rate 18 05/21/19 09:00 Blood Pressure 129/71 05/21/19 09:00 O2 Sat by Pulse Oximetry (%) Pertinent Admission Physical Exam Findings: alcohol withdrawal sx Laboratory Last Values WBC 6.9 K/mm3 (4.0-10.0) 05/18/19 07:55 RBC 4.49 M/mm3 (4.00-5.60) 05/18/19 07:55 Hgb 14.3 GM/dL (11.7-16.9) 05/18/19 07:55 Hct 42.6 % (35.4-49) 05/18/19 07:55 MCV 95.1 fl (80-96) 05/18/19 07:55 MCH 32.0 pg (25.7-33.7) 05/18/19 07:55 MCHC 33.6 g/dl (32.0-35.9) 05/18/19 07:55 RDW 14.4 % (11.9-15.9) 05/18/19 07:55 Plt Count 248 K/MM3 (134-434) 05/18/19 07:55 MPV 9.4 fl (7.5-11.1) 05/18/19 07:55 Sodium 141 mmol/L (136-145) 05/18/19 07:55 Potassium 4.1 mmol/L (3.5-5.1) 05/18/19 07:55 Chloride 107 mmol/L (98-107) 05/18/19 07:55 Carbon Dioxide 25 mmol/L (21-32) 05/18/19 07:55 Anion Gap 8 MMOL/L (8-16) 05/18/19 07:55 BUN 11.8 mg/dL (7-18) 05/18/19 07:55 Creatinine 0.9 mg/dL (0.55-1.3) 05/18/19 07:55 Est GFR (CKD-EPI)AfAm 116.65 05/18/19 07:55 Est GFR (CKD-EPI)NonAf 100.64 05/18/19 07:55 Random Glucose 93 mg/dL (74-106) 05/18/19 07:55 Calcium 8.9 mg/dL (8.5-10.1) 05/18/19 07:55 Total Bilirubin 0.8 mg/dL (0.2-1) 05/18/19 07:55 AST 11 U/L (15-37) L 05/18/19 07:55 ALT 16 U/L (13-61) 05/18/19 07:55 Alkaline Phosphatase 68 U/L (45-117) 05/18/19 07:55 Total Protein 7.1 g/dl (6.4-8.2) 05/18/19 07:55 Albumin 3.9 g/dl (3.4-5.0) 05/18/19 07:55 RPR Titer Nonreactive (NONREACTIVE) 05/18/19 07:55 HIV 1&2 Antibody Screen Negative 05/18/19 07:55 HIV P24 Antigen Negative 05/18/19 07:55 lab noted - Treatment Hospital Course: Detox Protocol Followed, Detoxed Safely, Responded well, Discharged Condition Good, Rehab Referral Accepted Patient has Accepted [facility] - Medication Discharge Medications: Ambulatory Orders NK [No Known Home Medication] 06/18/18 - Diagnosis (1) Alcohol dependence with uncomplicated withdrawal Status: Acute (2) Hepatitis C Status: Chronic Qualifiers: Viral hepatitis chronicity: chronic Hepatic coma status: with hepatic coma Qualified Code(s): B18.2 - Chronic viral hepatitis C (3) Nicotine dependence Status: Acute Qualifiers: Nicotine product type: cigarettes Substance use status: in withdrawal Qualified Code(s): F17.213 - Nicotine dependence, cigarettes, with withdrawal (4) Use of cane as ambulatory aid Status: Chronic - AMA Did Patient Leave Against Medical Advice: No CIWA Score - CIWA Score Nausea/Vomitin-No Nausea/No Vomiting Muscle Tremors: 1-None Visible, but [place] Anxiety: 1-Mildly Anxious Agitation: 1-Slight > Activity Paroxysmal Sweats: No Perspiration Orientation: 0-Oriented Tacttile Disturbances: 0-None Auditory Disturbances: 0-None Visual Disturbances: 0-None Headache: 0-None Present CIWA-Ar Total Score: 3
== END 2019-05-21 11:31 | disposition other institution (70) | DRG 775 ==
LOC: YASAS 14:07 → Y3N 22:05
PROVIDERS: ADMIT Allergy & Immunology; ATTEND Allergy & Immunology
PROC: HZ2ZZZZ Detoxification Services for Substance Abuse Treatment (ICD-10-PCS; principal; 2019-05-17)
DX: F10.230 Alcohol dependence with withdrawal, uncomplicated (principal); F12.10 Cannabis abuse, uncomplicated; F17.213 Nicotine dependence, cigarettes, with withdrawal; I10 Essential (primary) hypertension; B18.2 Chronic viral hepatitis C; K74.60 Unspecified cirrhosis of liver; R26.2 Difficulty in walking, not elsewhere classified; Z99.89 Dependence on other enabling machines and devices; Z91.013 Allergy to seafood; Z59.0 Homelessness
CPT/HCPCS: 36415; 71046-TC-FY; 80053; 85027; 86593; 87389; 93005; 93010

== ENCOUNTER 2019-05-21 11:42 | Inpatient (IN) | payer OTHER ==
[2019-05-21] MEDS ORDERED: MAGNESIUM HYDROX 2400MG/30ML ORAL SUSPENSION 30 ML CUP PO PRN (12:09)
[2019-05-21] MEDS ORDERED: MAGNESIUM CITRATE 300 ML BOTTLE PO PRN (12:09)
[2019-05-21] MEDS ORDERED: P-EPHED 60MG/TRIPROLIDI 2.5MG TABLET PO PRN (12:09)
[2019-05-21] MEDS ORDERED: LOPERAMIDE HCL 2 MG CAPSULE PO PRN (12:09)
[2019-05-21] MEDS ORDERED: MENTHOL/PHENOL 1 EACH UD MM PRN (12:09)
[2019-05-21] MEDS ORDERED: MAG HYDROX/AL HYDROX/SIMETH 30 ML UNIT-DOSE CUP PO PRN (12:09)
[2019-05-21] MEDS ORDERED: ACETAMINOPHEN 325 MG TABLET (FP) PO PRN (12:09)
[2019-05-21] MEDS ORDERED: IBUPROFEN 400 MG TABLET (FP) PO PRN (12:09)
--- NOTE | 2019-05-21 12:09 | HP ---
[facility] Rehab Assess/Revision - Admission History Admitted to Rehab from: [facility] Date of Admission to Rehab: 05/21/19 - Vital signs Vital Signs: Vital Signs Period Temp Pulse Resp BP Sys/Contreras Pulse Ox Last 24 Hr 98.1 F 65 18 128/77 - Findings Detox History & Physical reviewed: Yes Concur with findings: Yes Comments/Additional Findings: transferred from detox to rehab admission as per protocol Inpatient Rehab Admission - Rehab Decision to Admit Inpatient rehab admission?: Yes - Initial Determination Are CD services needed?: Yes Free of communicable disease: Yes Not in need of hospitalization: Yes - Rehab Admission Criteria Previous failed treatment: Yes Poor recovery environment: Yes Comorbidities: Yes Lacks judgement: Yes Patient is meeting Inpatient Rehab admission criteria:: Yes
[2019-05-21] MEDS: MELATONIN 5 MG TABLETS PO PRN (21:33)
[2019-05-21] MEDS: THIAMINE HCL 100 MG TABLET (FP) PO SCH (21:33)
[2019-05-21] MEDS: guaiFENesin 200 MG/10 ML 10 ML UNIT-DOSE CUPS PO PRN (21:49)
[2019-05-22] MEDS: guaiFENesin 200 MG/10 ML 10 ML UNIT-DOSE CUPS PO PRN (05:35)
[2019-05-22] MEDS: PRENATAL VITAMINS W/ FOLIC ACID TABLET (FP) PO SCH (10:19)
[2019-05-22] MEDS ORDERED: FLU VACCINE QUAD 60 MCG/0.5 ML (MDV 19-20) IM ONE ×2 (12:00→12:52)
[2019-05-22] MEDS: VITAMINS A AND D TOPICAL OINTMENT 60 GM TUBE TP SCH ×2 (13:35→18:15)
[2019-05-22] MEDS: MELATONIN 5 MG TABLETS PO PRN (21:16)
[2019-05-22] MEDS: THIAMINE HCL 100 MG TABLET (FP) PO SCH (21:16)
[2019-05-23] MEDS: VITAMINS A AND D TOPICAL OINTMENT 60 GM TUBE TP SCH ×5 (06:20→23:29)
[2019-05-23] MEDS: PRENATAL VITAMINS W/ FOLIC ACID TABLET (FP) PO SCH (10:49)
[2019-05-23] MEDS: MELATONIN 5 MG TABLETS PO PRN (21:54)
[2019-05-23] MEDS: THIAMINE HCL 100 MG TABLET (FP) PO SCH (21:54)
[2019-05-24] MEDS: VITAMINS A AND D TOPICAL OINTMENT 60 GM TUBE TP SCH ×3 (06:00→18:20)
[2019-05-24] MEDS: PRENATAL VITAMINS W/ FOLIC ACID TABLET (FP) PO SCH (10:28)
[2019-05-24] MEDS: THIAMINE HCL 100 MG TABLET (FP) PO SCH (21:12)
[2019-05-25] MEDS: PRENATAL VITAMINS W/ FOLIC ACID TABLET (FP) PO SCH (10:47)
[2019-05-25] MEDS: VITAMINS A AND D TOPICAL OINTMENT 60 GM TUBE TP SCH ×2 (11:36→16:31)
[2019-05-25] MEDS: THIAMINE HCL 100 MG TABLET (FP) PO SCH (21:30)
[2019-05-26] MEDS: PRENATAL VITAMINS W/ FOLIC ACID TABLET (FP) PO SCH (10:06)
[2019-05-26] MEDS: VITAMINS A AND D TOPICAL OINTMENT 60 GM TUBE TP SCH ×2 (10:07→12:16)
[2019-05-26] MEDS ORDERED: PT OWN MED DRAWER 7, Y5N ONE (10:07)
[2019-05-26] MEDS: THIAMINE HCL 100 MG TABLET (FP) PO SCH (21:12)
[2019-05-27] MEDS: VITAMINS A AND D TOPICAL OINTMENT 60 GM TUBE TP SCH ×4 (06:27→18:47)
[2019-05-27] MEDS: PRENATAL VITAMINS W/ FOLIC ACID TABLET (FP) PO SCH (12:06)
[2019-05-27] MEDS: THIAMINE HCL 100 MG TABLET (FP) PO SCH (21:47)
[2019-05-28] MEDS: VITAMINS A AND D TOPICAL OINTMENT 60 GM TUBE TP SCH ×3 (06:04→11:32)
[2019-05-28] MEDS: PRENATAL VITAMINS W/ FOLIC ACID TABLET (FP) PO SCH (11:31)
[2019-05-28] MEDS: THIAMINE HCL 100 MG TABLET (FP) PO SCH (21:17)
[2019-05-29] MEDS: VITAMINS A AND D TOPICAL OINTMENT 60 GM TUBE TP SCH ×3 (05:59→12:11)
[2019-05-29] MEDS: PRENATAL VITAMINS W/ FOLIC ACID TABLET (FP) PO SCH (10:34)
--- NOTE | 2019-05-29 16:24 | CONSULT ---
[facility] Psychiatric Consult - Data Date of interview: 05/29/19 Admission source: [facility] Identifying data: Patient is a 48 year old [place]/ male, two daughters, unemployed, homeless, and is supported by food stamps. This is one of multiple admissions for patient. Patient admitted to for alcohol, marijuana, and cocaine dependence. Substance Abuse History: Smoking Cessation. Smoking history: Current every day smoker. Have you smoked in the past 12 months: Yes. Aproximately how many cigarettes per day: 20. Hx Chewing Tobacco Use: No. Initiated information on smoking cessation: Yes. 'Breaking Loose' booklet given: 05/17/19. - Substance & Tx. History. Hx Alcohol Use: Yes. Hx Substance Use: Yes. Substance Use Type : Alcohol, Cocaine. Hx Substance Use Treatment: Yes ([facility]). - Substances abused. Alcohol. Substance route: Oral. Frequency: Daily. Amount used: 2 1/2 pints of vodka/4 of 24 ozs of beer. Age of first use: 10. Date of last use : 05/17/19. Marijuana/Hashish. Substance route: Smoking. Frequency: Daily. Amount used: 3-4 blunts. Age of first use: 10. Date of last use: 05/15. Heroin. Substance route: Injection. Frequency: 1-2 times per week. Amount used: 2bags. Age of first use: 21. Date of last use: 05/15/19 Medical History: hypertension, Hep C, cirrhosis of the liver Psychiatric History: Patient denies history of psychiatric hospitalization, outpatient care, and suicide attempt. Mr. Solo reports taking zyprexa 5mg when he was at [facility] detox in his 20's due to his depression. Patient also accepted zyprexa 5mg when he was admitted to detox in November of 2017. Patient denies history of auditory/visual hallucinations, suicidal/homicidal ideation. Physical/Sexual Abuse/Trauma History: denies. Mental Status Exam - Mental Status Exam Alert and Oriented to: Time, Place, Person Cognitive Function: Good Patient Appearance: Well Groomed Mood: Euthymic Affect: Mood Congruent Patient Behavior: Cooperative Speech Pattern: Appropriate Voice Loudness: Normal Thought Process: Goal Oriented Thought Disorder: Not Present Hallucinations: Denies Suicidal Ideation: Denies Homicidal Ideation: Denies Insight/Judgement: Poor Sleep: Poorly Appetite: Fair Muscle strength/Tone: Normal Gait/Station: Normal Psychiatric Findings - Problem List ([place] 1, 2,3) (1) Alcohol dependence Current Visit: Yes Status: Acute (2) Cannabis abuse Current Visit: Yes Status: Acute (3) Cocaine dependence, uncomplicated Current Visit: Yes Status: Acute - Initial Treatment Plan Initial Treatment Plan: Psychoeducation provided. Detoxification in progress. Observation
[2019-05-29] MEDS: THIAMINE HCL 100 MG TABLET (FP) PO SCH (21:27)
[2019-05-29] MEDS: BACITRACIN 15 GM TUBE TOPICAL OINTMENT TP SCH (21:27)
[2019-05-30] MEDS: VITAMINS A AND D TOPICAL OINTMENT 60 GM TUBE TP SCH ×2 (00:20→06:59)
[2019-05-30] MEDS: PRENATAL VITAMINS W/ FOLIC ACID TABLET (FP) PO SCH (10:21)
[2019-05-30] MEDS: BACITRACIN 15 GM TUBE TOPICAL OINTMENT TP SCH ×2 (10:22→21:50)
[2019-05-30] MEDS: THIAMINE HCL 100 MG TABLET (FP) PO SCH (21:50)
[2019-05-31] MEDS: VITAMINS A AND D TOPICAL OINTMENT 60 GM TUBE TP SCH ×3 (01:51→12:05)
[2019-05-31] MEDS: BACITRACIN 15 GM TUBE TOPICAL OINTMENT TP SCH ×2 (10:35→21:49)
[2019-05-31] MEDS: PRENATAL VITAMINS W/ FOLIC ACID TABLET (FP) PO SCH (10:36)
[2019-05-31] MEDS ORDERED: PT OWN MED DRAWER 7, Y5N ONE (13:22)
[2019-05-31] MEDS: THIAMINE HCL 100 MG TABLET (FP) PO SCH (21:29)
[2019-05-31] MEDS: MELATONIN 5 MG TABLETS PO PRN (21:29)
[2019-06-01] MEDS: VITAMINS A AND D TOPICAL OINTMENT 60 GM TUBE TP SCH ×4 (06:11→22:07)
[2019-06-01] MEDS ORDERED: PT OWN MED DRAWER 7, Y5N ONE (09:15)
[2019-06-01] MEDS: BACITRACIN 15 GM TUBE TOPICAL OINTMENT TP SCH ×2 (10:07→22:06)
[2019-06-01] MEDS: PRENATAL VITAMINS W/ FOLIC ACID TABLET (FP) PO SCH (10:07)
[2019-06-01] MEDS: THIAMINE HCL 100 MG TABLET (FP) PO SCH (22:07)
[2019-06-02] MEDS: VITAMINS A AND D TOPICAL OINTMENT 60 GM TUBE TP SCH ×3 (06:29→20:28)
[2019-06-02] MEDS: BACITRACIN 15 GM TUBE TOPICAL OINTMENT TP SCH ×2 (10:05→21:59)
[2019-06-02] MEDS: PRENATAL VITAMINS W/ FOLIC ACID TABLET (FP) PO SCH (10:05)
[2019-06-02] MEDS: THIAMINE HCL 100 MG TABLET (FP) PO SCH (21:59)
[2019-06-03] MEDS: VITAMINS A AND D TOPICAL OINTMENT 60 GM TUBE TP SCH (07:11)
[2019-06-03 07:15] VITALS: BP 151/94; PULSE 80; TEMP 97.9
[2019-06-03] MEDS: PRENATAL VITAMINS W/ FOLIC ACID TABLET (FP) PO SCH (10:49)
[2019-06-03] MEDS: BACITRACIN 15 GM TUBE TOPICAL OINTMENT TP SCH (10:49)
--- NOTE | 2019-06-03 13:18 | PN ---
[facility] Progress Note Note: Pharmacy Affairs Assistant notified by RN Nitza Mendoza that patient had requested discharge today. As per Loren Jackson, patient was scheduled for discharge on 06/05/19 and when informed of discharge date, patient stated " I want to leave now!". While going to unit to evaluate patient, Condition 10 was called. Upon arrival to unit , security team, Loren Jackson, Raquel Sidhu and counselor Brianda Chavez were on unit. Mr. Alan Mclean arrived to unit at same time of provider. Patient noted to be screaming/cursing at other peers in a derogatory and aggressive manner. Team attempted to redirect patient, however, efforts ineffective and patient continued with same behavior. Patient had belongings in bag and walked off unit accompanied by Security team prior to evaluation by provider. Patient left unit against medical advice. Vital Signs Temperature 97.9 F 06/03/19 07:10 Pulse Rate 80 06/03/19 07:10 Respiratory Rate 18 06/03/19 07:10 Blood Pressure 151/94 06/03/19 07:10 O2 Sat by Pulse Oximetry (%)
== END 2019-06-03 10:20 | disposition left against medical advice (07) | DRG 770 ==
LOC: YASAS 11:42 → Y3W 11:44
PROVIDERS: ADMIT Neuromusculoskeletal Medicine & OMM; ATTEND Neuromusculoskeletal Medicine & OMM
PROC: HZ42ZZZ Group Counseling for Substance Abuse Treatment, Cognitive-Behavioral (ICD-10-PCS; principal; 2019-05-21)
DX: F10.20 Alcohol dependence, uncomplicated (principal); F14.20 Cocaine dependence, uncomplicated; F12.10 Cannabis abuse, uncomplicated; F17.210 Nicotine dependence, cigarettes, uncomplicated; I10 Essential (primary) hypertension; B18.2 Chronic viral hepatitis C; K74.60 Unspecified cirrhosis of liver; Z91.013 Allergy to seafood; Z59.0 Homelessness
CPT/HCPCS: Q2036

== ENCOUNTER 2020-03-25 12:25 | Inpatient (IN) | payer OTHER ==
--- NOTE | 2020-03-25 12:41 | BHS.RME ---
Substance Use & Tx History - Substance Use History Heroin Substance amount: 1 bundles Frequency of use: Daily Substance route: Injection (ex: intravenous or skin popping) Date of Last Use: 03/25/20 Alcohol Substance amount: 2 pints vodka and Felice Frequency of use: Daily Substance route: Oral Date of Last Use: 03/24/20 Cocaine- Powder Substance amount: $100 Frequency of use: Daily Substance route: Injection (ex: intravenous or skin popping) Date of Last Use: 03/25/20 Marijuana/Hashish Substance amount: $10 Frequency of use: Daily Substance route: Smoking Date of Last Use: 03/25/20 Nicotine Substance amount: 1 pack Frequency of use: Daily Substance route: Smoking Date of Last Use: 03/25/20 Physical/Psych/Mental Status - Behavior General Behavior: Increased activity (restlessness, agitation) Eye Contact: Normal - Cooperativeness Cooperativeness: Cooperative - Thinking Thought Processes: Tight, Logical, Goal Directed Thought content: Future oriented - Physical Health Problems Is patient presently having any pain?: No Does patient presently have any injuries (include location): No Does patient currently have a fever: No COWS - Scale Resting Pulse: 1= [place] 81-100 Sweatin= Chills/Flushing Restless Observation: 0= Sits Still Pupil Size: 1= Pupils >than Normal Bone or Joint Aches: 2= Severe Diffuse Aches Runny Nose/ Eye Tearin= Runny Nose/Eyes GI Upset > 30mins: 2= Nausea/Diarrhea Tremor Observation: 2= Slight Tremor Visible Yawning Observation: 1= 1-2x During Session Anxiety or Irritability: 2=Irritable/Anxious Goose Flesh Skin: 3=Piloerection COWS Score: 17 CIWA Nausea/Vomitin Muscle Tremors: 2 Anxiety: 4-Mod. Anxious/Guarded Agitation: 4-Moderately Restless Paroxysmal Sweats: 2 Orientation: 0-Oriented Tacttile Disturbances: 0-None Auditory Disturbances: 0-None Visual Disturbances: 0-None Headache: 0-None Present CIWA-Ar Total Score: 15
[2020-03-25] MEDS ORDERED: MAGNESIUM HYDROX 2400MG/30ML ORAL SUSPENSION 30 ML CUP PO PRN (13:43)
[2020-03-25] MEDS ORDERED: MAGNESIUM CITRATE 300 ML BOTTLE PO PRN (13:43)
[2020-03-25] MEDS ORDERED: ONDANSETRON *ODT* 4 MG TABLET SL PRN (13:43)
[2020-03-25] MEDS ORDERED: LORazepam 1 MG TABLET PO PRN (13:43)
[2020-03-25] MEDS ORDERED: MAG HYDROX/AL HYDROX/SIMETH 30 ML UNIT-DOSE CUP PO PRN (13:43)
[2020-03-25] MEDS ORDERED: NICOTINE POLACRILEX 2 MG GUM BUC PRN (13:43)
[2020-03-25] MEDS ORDERED: ACETAMINOPHEN 325 MG TABLET (FP) PO PRN ×2 (13:43)
[2020-03-25] MEDS ORDERED: METHOCARBAMOL 500 MG TABLET PO PRN (13:43)
[2020-03-25] MEDS ORDERED: BISMUTH SUBSALICYLATE 524 MG/30 ML UD PO PRN (13:43)
[2020-03-25] MEDS ORDERED: MENTHOL/PHENOL 1 EACH UD MM PRN (13:43)
[2020-03-25] MEDS ORDERED: IBUPROFEN 400 MG TABLET (FP) PO PRN (13:43)
[2020-03-25] MEDS ORDERED: cloNIDine HCL 0.1 MG TABLET PO PRN (13:43)
--- NOTE | 2020-03-25 13:43 | HP ---
<Enedina Townsend - Last Filed: 03/25/20 15:20> CIWA Score - Admission Criteria OASAS Guidelines: Admission for Medically Managed Detox: Requires at least one of the followin. CIWA greater than 12 2. Seizures within the past 24 hours 3. Delirium tremens within the past 24 hours 4. Hallucinations within the past 24 hours 5. Acute intervention needed for co occurring medical disorder 6. Acute intervention needed for co occurring psychiatric disorder 7. Severe withdrawal that cannot be handled at a lower level of care (continued vomiting, continued diarrhea, abnormal vital signs) requiring intravenous medication and/or fluids 8. Admitting History and Physical - Admission History Source: Patient Admission ROS [facility] Allergies/Adverse Reactions: Allergies Allergy/AdvReac Type Severity Reaction Status Date / Time Fish Containing Products Allergy Severe Rash Verified 05/17/19 18:35 No Known Drug Allergies Allergy Verified 02/21/19 09:33 Admission Physical Exam [facility] - Vital Signs Vital Signs: Vital Signs - 24 hr 03/25/20 03/25/20 13:53 14:06 Temperature 97.3 F L 97.3 F L Pulse Rate 90 90 Respiratory 18 18 Rate Blood Pressure 125/79 <Kelley Stacy - Last Filed: 03/25/20 17:33> COWS - Scale Resting Pulse: 1= [place] 81-100 Sweatin= Chills/Flushing Restless Observation: 0= Sits Still Pupil Size: 1= Pupils >than Normal Bone or Joint Aches: 2= Severe Diffuse Aches Runny Nose/ Eye Tearin= Runny Nose/Eyes GI Upset > 30mins: 2= Nausea/Diarrhea Tremor Observation: 2= Slight Tremor Visible Yawning Observation: 1= 1-2x During Session Anxiety or Irritability: 2=Irritable/Anxious Goose Flesh Skin: 3=Piloerection COWS Score: 17 CIWA Score Nausea/Vomitin Muscle Tremors: 2 Anxiety: 4-Mod. Anxious/Guarded Agitation: 4-Moderately Restless Paroxysmal Sweats: 2 Orientation: 0-Oriented Tacttile Disturbances: 0-None Auditory Disturbances: 0-None Visual Disturbances: 0-None Headache: 0-None Present CIWA-Ar Total Score: 15 - Admission Criteria OASAS Guidelines: Admission for Medically Managed Detox: Requires at least one of the followin. CIWA greater than 12 2. Seizures within the past 24 hours 3. Delirium tremens within the past 24 hours 4. Hallucinations within the past 24 hours 5. Acute intervention needed for co occurring medical disorder 6. Acute intervention needed for co occurring psychiatric disorder 7. Severe withdrawal that cannot be handled at a lower level of care (continued vomiting, continued diarrhea, abnormal vital signs) requiring intravenous medication and/or fluids 8. Admitting History and Physical - Smoking History Smoking history: Current every day smoker Have you smoked in the past 12 months: Yes Aproximately how many cigarettes per day: 20 - Alcohol/Substance Use Hx Alcohol Use: Yes Admission [facility] Chief Complaint: detox from alcohol and heroin History of Present Illness: Patient is a 49 y/o male with a history of hepatitis C(treated with medication), cirrhosis, hepatitis who is here for detox from cocaine and heroin and alcohol. Patient first started drinking at 9. Patient drinks 2-3 pints of alcohol a day, usually drinks vodka. Never blacked out, patient reports needing a drink every morning. Denies ever having seizures. Last drink was yesterday at 10. Patient started using heroin at age 20. Patient uses it everyday, and uses a bundle a day. Patient does use it IV. Patient has overdosed in the past, twice. Patient started using cocaine at age 21, uses it everyday. Uses 100 dollars every day. Patient has attempted rehab multiple times. Substance Use & Tx History - Substance Use History Heroin Substance amount: 1 bundles Frequency of use: Daily Substance route: Injection (ex: intravenous or skin popping) Date of Last Use: 03/25/20 Alcohol Substance amount: 2 pints vodka and Felice Frequency of use: Daily Substance route: Oral Date of Last Use: 03/24/20 Cocaine- Powder Substance amount: $100 Frequency of use: Daily Substance route: Injection (ex: intravenous or skin popping) Date of Last Use: 03/25/20 Marijuana/Hashish Substance amount: $10 Frequency of use: Daily Substance route: Smoking Date of Last Use: 03/25/20 Nicotine Substance amount: 1 pack Frequency of use: Daily Substance route: Smoking Date of Last Use: 03/25/20 Denies any surgical history. Patient smokes a pack a day. Patient is homeless and does not work. Receives food stamps. Patient meets inpatient criteria for detox from alcohol and heroin. 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 Exam Limitations: No Limitations - Review of Systems Constitutional: No Symptoms Reported, Other (denies fever and chills) Respiratory: reports: Other (denies: shortness of breath, wheezing) Cardiac: reports: Other (denies chest pain) GI: reports: Other (denies: nausea, vomiting, diarrhea) Patient History - Patient Medical History Hx Anemia: No Hx Asthma: No Hx Chronic Obstructive Pulmonary Disease (COPD): No Hx Cancer: No Hx Cardiac Disorders: No Hx Congestive Heart Failure: No Hx Hypertension: No Hx Hypercholesterolemia: No Hx Pacemaker: No HX Cerebrovascular Accident: No Hx Seizures: No Hx Dementia: No Hx Diabetes: No Hx Gastrointestinal Disorders: No Hx Liver Disease: Yes (Hep C ) Hx Genitourinary Disorders: No Hx Sexually Transmitted Disorders: No Hx Renal Disease (ESRD): No Hx Thyroid Disease: No Hx Human Immunodeficiency Virus (HIV): No ( [facility] NEGATIVE last 2017) Hx Hepatitis C: Yes (Not treated) Hx Depression: No Hx Suicide Attempt: No Hx Bipolar Disorder: No Hx Schizophrenia: No - Patient Surgical History Past Surgical History: No Hx Neurologic Surgery: No Hx Cataract Extraction: No Hx Cardiac Surgery: No Hx Lung Surgery: No Hx Breast Surgery: No Hx Breast Biopsy: No Hx Abdominal Surgery: No Hx Appendectomy: No Hx Cholecystectomy: No Hx Genitourinary Surgery: No Hx Section: No Hx Orthopedic Surgery: No Anesthesia Reaction: No - PPD History Results: CXR 05/20/19 - Smoking Cessation Smoking history: Current every day smoker Have you smoked in the past 12 months: Yes Aproximately how many cigarettes per day: 20 Hx Chewing Tobacco Use: No Initiated information on smoking cessation: Yes 'Breaking Loose' booklet given: 03/25/20 - Substances abused Heroin Substance route: Injection Frequency: Daily Amount used: $100/1 bundle Age of first use: 21 Date of last use: 03/25/20 Cocaine Substance route: Injection Frequency: Daily Amount used: $100/1 bundle Age of first use: 21 Date of last use: 03/25/20 Marijuana/Hashish Substance route: Smoking Frequency: Daily Amount used: $30-40 Age of first use: 9 Date of last use: 03/24/20 Alcohol Substance route: Oral Frequency: Daily Amount used: 2-3 pints vodka, 2-3 packs beer Admission Physical Exam [facility] - Physical General Appearance: Yes: No Apparent Distress, Appropriately Dressed Respiratory: Yes: Normal Breath Sounds, No Respiratory Distress, No Accessory Muscle Use Cardiology: Yes: Regular Rhythm, Regular Rate Abdominal: Yes: Non Tender, Flat Musculoskeletal: Yes: full range of Motion Extremities: Yes: Normal Range of Motion. No: Pedal Edema Neurological: Yes: Fully Oriented - Diagnostic (1) Alcohol dependence with uncomplicated withdrawal Current Visit: Yes Status: Acute (2) Cocaine dependence, uncomplicated Current Visit: Yes Status: Acute (3) Opioid dependence with withdrawal Current Visit: Yes Status: Acute (4) Hepatitis C Current Visit: Yes Status: Chronic Qualifiers: Viral hepatitis chronicity: chronic Hepatic coma status: with hepatic coma Qualified Code(s): B18.2 - Chronic viral hepatitis C Cleared for Admission [facility] - Detox or Rehab [facility] Level of Care: Medically Managed Detox Regimen/Protocol: Ativan, Methadone Breathalyzer - Breathalyzer Breathalyzer: 0 Vital Signs - Vital Signs Vital signs refused: No Temperature: 97.3 F Temperature source: Oral Pulse Rate: 90 Respiratory Rate: 18 Blood Pressure: 125/79 BP Location: Left Arm - Height Height: 5 ft 8 in - Weight Weight: 86.183 kg - BMI Body Mass Index (BMI): 28.8 Urine Drug Screen - Test Device Lot number: [id number] Expiration date: 10/29/21 - Control Is test valid?: Yes - Results Drug screen NEGATIVE: No Urine drug screen results: THC-Marijuana, BARBER-Cocaine, MOP-Opiates, MTD- Methadone Inpatient Rehab Admission - Rehab Decision to Admit Inpatient rehab admission?: No
[2020-03-25 13:53] VITALS: BMI 28.8
[2020-03-25] MEDS ORDERED: hydrOXYzine PAMOATE 25 MG CAPSULE (FP) PO SCH (14:00)
[2020-03-25] MEDS ORDERED: METHADONE HCL 10 MG TABLET (FOR DETOX USE ONLY) PO ONE (14:45)
[2020-03-25] MEDS ORDERED: hydrOXYzine PAMOATE 25 MG CAPSULE (FP) PO PRN (14:54)
--- NOTE | 2020-03-25 15:04 | EKG ---
Test Reason : Blood Pressure : / mmHG Vent. Rate : 078 BPM Atrial Rate : 078 BPM P-R Int : 150 ms QRS Dur : 108 ms QT Int : 398 ms P-R-T Axes : 069 078 063 degrees QTc Int : 453 ms NORMAL SINUS RHYTHM NORMAL ECG WHEN COMPARED WITH ECG OF 17-MAY-2019 22:09, NO SIGNIFICANT CHANGE WAS FOUND Confirmed by Ronald Noland MD ([id number]) on 03/25/2020 3:04:44 PM Referred By: Confirmed By:Ronald Noland MD
[2020-03-25 15:30] LABS: HEMATOCRIT 41.3 % (35.4-49); HEMOGLOBIN 13.7 GM/dL (11.7-16.9); MCH 31.6 pg (25.7-33.7); MCHC 33.2 g/dl (32.0-35.9); MEAN CELL VOLUME 95.1 fl (80-96); MEAN PLT VOLUME 8.5 fl (7.5-11.1); PLATELET COUNT 247 K/MM3 (134-434); RBC 4.34 M/mm3 (4.00-5.60); RDW 14.8 % (11.9-15.9); WHITE BLOOD COUNT 9.6 K/mm3 (4.0-10.0)
--- NOTE | 2020-03-25 15:34 | PN ---
Teaching Attending Note Name of Resident: Kelley Stacy ATTENDING PHYSICIAN STATEMENT I saw and evaluated the patient. I reviewed the resident's note and discussed the case with the resident. I agree with the resident's findings and plan as documented. SUBJECTIVE: OBJECTIVE: ASSESSMENT AND PLAN: 1. Alcohol use disorder 2. Opiate use disorder Plan 1. Ativan detox protocol 2. Methadone protocol
[2020-03-25 15:39] LABS: ALBUMIN 3.8 g/dl (3.4-5.0); BILIRUBIN,TOTAL 0.8 mg/dL (0.2-1); BLOOD UREA NITROGEN 12.1 mg/dL (7-18); CREATININE 1.1 mg/dL (0.55-1.3); POTASSIUM 3.7 mmol/L (3.5-5.1); TOT PROT 7.7 g/dl (6.4-8.2)
[2020-03-25] MEDS: PRENATAL VITAMINS W/ FOLIC ACID TABLET (FP) PO SCH (15:45)
[2020-03-25] MEDS: LORazepam 2 MG TABLET PO SCH ×2 (17:52→23:17)
[2020-03-25] MEDS: VITAMINS A AND D TOPICAL OINTMENT 60 GM TUBE TP SCH (19:11)
[2020-03-25] MEDS: THIAMINE HCL 100 MG TABLET (FP) PO SCH (23:17)
[2020-03-25] MEDS: MELATONIN 5 MG TABLETS PO SCH (23:17)
[2020-03-26] MEDS: VITAMINS A AND D TOPICAL OINTMENT 60 GM TUBE TP SCH ×5 (00:59→23:20)
[2020-03-26] MEDS: LORazepam 2 MG TABLET PO SCH ×4 (06:47→22:06)
[2020-03-26] MEDS ORDERED: METHADONE HCL 5 MG TABLET (FOR DETOX USE ONLY) ONE ×2 (08:37→17:56)
[2020-03-26] MEDS ORDERED: METHADONE HCL 10 MG TABLET (FOR DETOX USE ONLY) ONE ×2 (08:38→17:56)
[2020-03-26] MEDS ORDERED: METHADONE (DETOX) 20 MG, METHADONE (DETOX) 5 MG PO ONE ×2 (10:00→16:00)
[2020-03-26] MEDS: NICOTINE 21 MG/24 HOURS TOPICAL PATCH TD SCH (10:03)
[2020-03-26] MEDS: PRENATAL VITAMINS W/ FOLIC ACID TABLET (FP) PO SCH (10:03)
[2020-03-26] MEDS ORDERED: PNEUMOC 13-VAL CONJ-DIP CRM/PF 0.5 ML DISP.SYRIN IM ONE (12:00)
--- NOTE | 2020-03-26 12:00 | PN ---
[facility] CI[facility] - CIWA Score Nausea/Vomitin-No Nausea/No Vomiting Muscle Tremors: 3 Anxiety: 3 Agitation: 3 Paroxysmal Sweats: 2 Orientation: 0-Oriented Tacttile Disturbances: 0-None Auditory Disturbances: 0-None Visual Disturbances: 0-None Headache: 0-None Present CIWA-Ar Total Score: 11 S COWS - Scale Resting Pulse: 0= [place] 80 or Below Sweatin= Chills/Flushing Restless Observation: 1= Difficult to Sit Still Pupil Size: 0= Normal to Room Light Bone or Joint Aches: 2= Severe Diffuse Aches Runny Nose/ Eye Tearin= Runny Nose/Eyes GI Upset > 30mins: 0= None Tremor Observation of Outstretched Hands: 1= Tremor [place], Not Seen Yawning Observation: 1= 1-2x During Session Anxiety or Irritability: 1=Feels Anxious/Irritable Goose Flesh Skin: 0=Smooth Skin COWS Score: 9 [facility] Progress Note (SOAP) Subjective: sweats shakes running nose chills body aches interrupted sleep Objective: 03/26/20 12:00 Vital Signs Temperature 98.6 F 03/26/20 09:07 Pulse Rate 74 03/26/20 09:07 Respiratory Rate 18 03/26/20 09:07 Blood Pressure 120/70 03/26/20 09:07 O2 Sat by Pulse Oximetry (%) 98 03/26/20 09:07 Laboratory Tests 03/25/20 03/25/20 03/25/20 13:50 13:50 13:50 WBC 9.6 RBC 4.34 Hgb 13.7 Hct 41.3 MCV 95.1 MCH 31.6 MCHC 33.2 RDW 14.8 Plt Count 247 MPV 8.5 Sodium 142 Potassium 3.7 Chloride 106 Carbon Dioxide 30 Anion Gap 7 L BUN 12.1 Creatinine 1.1 Est GFR (CKD-EPI)AfAm 90.88 Est GFR (CKD-EPI)NonAf 78.41 Random Glucose 100 Calcium 9.0 Total Bilirubin 0.8 AST 65 H ALT 109 H Alkaline Phosphatase 61 Total Protein 7.7 Albumin 3.8 Syphilis Serology Non-reactive HIV Ag/Ab Combo Qual 03/25/20 13:50 WBC RBC Hgb Hct MCV MCH MCHC RDW Plt Count MPV Sodium Potassium Chloride Carbon Dioxide Anion Gap BUN Creatinine Est GFR (CKD-EPI)AfAm Est GFR (CKD-EPI)NonAf Random Glucose Calcium Total Bilirubin AST ALT Alkaline Phosphatase Total Protein Albumin Syphilis Serology HIV Ag/Ab Combo Qual Negative aaox3 ambulating no acute distress Assessment: 03/26/20 12:00 withdrawals Plan: continue detox increase fluids
[2020-03-26] MEDS ORDERED: METHADONE HCL 10 MG TABLET (FOR DETOX USE ONLY) PO ONE (18:00)
[2020-03-26] MEDS ORDERED: MASKS NR ONE (18:54)
[2020-03-26] MEDS: THIAMINE HCL 100 MG TABLET (FP) PO SCH (22:06)
[2020-03-26] MEDS: MELATONIN 5 MG TABLETS PO SCH (22:06)
[2020-03-27] MEDS: LORazepam 1 MG TABLET PO SCH ×4 (06:29→22:53)
[2020-03-27] MEDS: VITAMINS A AND D TOPICAL OINTMENT 60 GM TUBE TP SCH ×3 (07:02→18:08)
[2020-03-27] MEDS ORDERED: METHADONE HCL 10 MG TABLET (FOR DETOX USE ONLY) PO ONE (10:00)
[2020-03-27] MEDS: PRENATAL VITAMINS W/ FOLIC ACID TABLET (FP) PO SCH (10:28)
[2020-03-27] MEDS: NICOTINE 21 MG/24 HOURS TOPICAL PATCH TD SCH (10:28)
--- NOTE | 2020-03-27 14:49 | PN ---
S CIWA - CIWA Score Nausea/Vomitin-No Nausea/No Vomiting Muscle Tremors: 2 Anxiety: 1-Mildly Anxious Agitation: 1-Slight > Activity Paroxysmal Sweats: 1-Minimal Palms Moist Orientation: 0-Oriented Tacttile Disturbances: 0-None Auditory Disturbances: 0-None Visual Disturbances: 0-None Headache: 0-None Present CIWA-Ar Total Score: 5 BHS COWS - Scale Resting Pulse: 0= [place] 80 or Below Sweatin= Chills/Flushing Restless Observation: 1= Difficult to Sit Still Pupil Size: 0= Normal to Room Light Bone or Joint Aches: 1= Mild Discomfort Runny Nose/ Eye Tearin= Nasal Congestion GI Upset > 30mins: 0= None Tremor Observation of Outstretched Hands: 1= Tremor [place], Not Seen Yawning Observation: 1= 1-2x During Session Anxiety or Irritability: 1=Feels Anxious/Irritable Goose Flesh Skin: 0=Smooth Skin COWS Score: 7 [facility] Progress Note (SOAP) Subjective: sweats shakes interrupted sleep restless Objective: 03/27/20 14:49 Vital Signs Temperature 97.5 F L 03/27/20 09:05 Pulse Rate 68 03/27/20 09:05 Respiratory Rate 16 03/27/20 09:05 Blood Pressure 134/84 03/27/20 09:05 O2 Sat by Pulse Oximetry (%) 99 03/27/20 09:05 Laboratory Tests 03/25/20 03/25/20 03/25/20 13:50 13:50 13:50 WBC 9.6 RBC 4.34 Hgb 13.7 Hct 41.3 MCV 95.1 MCH 31.6 MCHC 33.2 RDW 14.8 Plt Count 247 MPV 8.5 Sodium 142 Potassium 3.7 Chloride 106 Carbon Dioxide 30 Anion Gap 7 L BUN 12.1 Creatinine 1.1 Est GFR (CKD-EPI)AfAm 90.88 Est GFR (CKD-EPI)NonAf 78.41 Random Glucose 100 Calcium 9.0 Total Bilirubin 0.8 AST 65 H ALT 109 H Alkaline Phosphatase 61 Total Protein 7.7 Albumin 3.8 Syphilis Serology Non-reactive COVID-19 (MICHAELA) HIV Ag/Ab Combo Qual 03/25/20 03/25/20 13:50 14:55 WBC RBC Hgb Hct MCV MCH MCHC RDW Plt Count MPV Sodium Potassium Chloride Carbon Dioxide Anion Gap BUN Creatinine Est GFR (CKD-EPI)AfAm Est GFR (CKD-EPI)NonAf Random Glucose Calcium Total Bilirubin AST ALT Alkaline Phosphatase Total Protein Albumin Syphilis Serology COVID-19 (MICHAELA) Not detected HIV Ag/Ab Combo Qual Negative aaox3 ambulating no acute distress Assessment: 03/27/20 14:49 withdrawals Plan: continue detox
[2020-03-27] MEDS: THIAMINE HCL 100 MG TABLET (FP) PO SCH (22:53)
[2020-03-27] MEDS: MELATONIN 5 MG TABLETS PO SCH (22:56)
[2020-03-28] MEDS ORDERED: LORazepam 0.5 MG TABLET PO PRN
[2020-03-28] MEDS: VITAMINS A AND D TOPICAL OINTMENT 60 GM TUBE TP SCH ×5 (03:30→23:56)
[2020-03-28] MEDS: LORazepam 0.5 MG TABLET PO SCH ×4 (05:54→22:37)
[2020-03-28] MEDS ORDERED: METHADONE HCL 5 MG TABLET (FOR DETOX USE ONLY) ONE (09:10)
[2020-03-28] MEDS ORDERED: METHADONE HCL 10 MG TABLET (FOR DETOX USE ONLY) ONE (09:10)
[2020-03-28] MEDS ORDERED: METHADONE (DETOX) 10 MG, METHADONE (DETOX) 5 MG PO ONE (10:00)
[2020-03-28] MEDS: NICOTINE 21 MG/24 HOURS TOPICAL PATCH TD SCH (10:25)
[2020-03-28] MEDS: PRENATAL VITAMINS W/ FOLIC ACID TABLET (FP) PO SCH (10:25)
--- NOTE | 2020-03-28 11:51 | PN ---
S CIWA - CIWA Score Nausea/Vomitin-No Nausea/No Vomiting Muscle Tremors: 2 Anxiety: 2 Agitation: 1-Slight > Activity Paroxysmal Sweats: 1-Minimal Palms Moist Orientation: 0-Oriented Tacttile Disturbances: 0-None Auditory Disturbances: 0-None Visual Disturbances: 0-None Headache: 0-None Present CIWA-Ar Total Score: 6 BHS COWS - Scale Resting Pulse: 0= [place] 80 or Below Sweatin= Chills/Flushing Restless Observation: 1= Difficult to Sit Still Pupil Size: 0= Normal to Room Light Bone or Joint Aches: 2= Severe Diffuse Aches Runny Nose/ Eye Tearin= None GI Upset > 30mins: 0= None Tremor Observation of Outstretched Hands: 2= Slight Tremor Visible Yawning Observation: 0= None Anxiety or Irritability: 1=Feels Anxious/Irritable Goose Flesh Skin: 0=Smooth Skin COWS Score: 7 S Progress Note (SOAP) Subjective: Complaints of tremors, sweats, anxiety, agitation, chills, and body aches. Objective: 03/28/20 11:50 Vital Signs 03/28/20 03/28/20 03/28/20 05:45 07:19 08:45 Temperature 97 F L 97.5 F L Pulse Rate 67 62 63 Respiratory 16 16 Rate Blood Pressure 121/105 H 126/79 132/79 O2 Sat by Pulse 98 97 Oximetry (%) Laboratory Last Values WBC 9.6 K/mm3 (4.0-10.0) 03/25/20 13:50 RBC 4.34 M/mm3 (4.00-5.60) 03/25/20 13:50 Hgb 13.7 GM/dL (11.7-16.9) 03/25/20 13:50 Hct 41.3 % (35.4-49) 03/25/20 13:50 MCV 95.1 fl (80-96) 03/25/20 13:50 MCH 31.6 pg (25.7-33.7) 03/25/20 13:50 MCHC 33.2 g/dl (32.0-35.9) 03/25/20 13:50 RDW 14.8 % (11.9-15.9) 03/25/20 13:50 Plt Count 247 K/MM3 (134-434) 03/25/20 13:50 MPV 8.5 fl (7.5-11.1) 03/25/20 13:50 Sodium 142 mmol/L (136-145) 03/25/20 13:50 Potassium 3.7 mmol/L (3.5-5.1) 03/25/20 13:50 Chloride 106 mmol/L (98-107) 03/25/20 13:50 Carbon Dioxide 30 mmol/L (21-32) 03/25/20 13:50 Anion Gap 7 MMOL/L (8-16) L 03/25/20 13:50 BUN 12.1 mg/dL (7-18) 03/25/20 13:50 Creatinine 1.1 mg/dL (0.55-1.3) 03/25/20 13:50 Est GFR (CKD-EPI)AfAm 90.88 03/25/20 13:50 Est GFR (CKD-EPI)NonAf 78.41 03/25/20 13:50 Random Glucose 100 mg/dL (74-106) 03/25/20 13:50 Calcium 9.0 mg/dL (8.5-10.1) 03/25/20 13:50 Total Bilirubin 0.8 mg/dL (0.2-1) 03/25/20 13:50 AST 65 U/L (15-37) H 03/25/20 13:50 ALT 109 U/L (13-61) H 03/25/20 13:50 Alkaline Phosphatase 61 U/L (45-117) 03/25/20 13:50 Total Protein 7.7 g/dl (6.4-8.2) 03/25/20 13:50 Albumin 3.8 g/dl (3.4-5.0) 03/25/20 13:50 Syphilis Serology Non-reactive (NONREACTIVE) 03/25/20 13:50 COVID-19 (MICHAELA) Not detected (Not Detected) 03/25/20 14:55 HIV Ag/Ab Combo Qual Negative (NEGATIVE) 03/25/20 13:50 Labs noted. Assessment: 03/28/20 11:51 Alert and oriented x 3, in no acute respiratory distress. Full ROM, ambulating in unit without assistance. Skin warm to touch without any lesions. Withdrawal symptoms. Plan: Continue detox protocol.
[2020-03-28] MEDS: THIAMINE HCL 100 MG TABLET (FP) PO SCH (22:37)
[2020-03-28] MEDS: MELATONIN 5 MG TABLETS PO SCH (22:37)
[2020-03-29] MEDS ORDERED: LORazepam 0.5 MG TABLET PO ONE (05:00)
[2020-03-29] MEDS: VITAMINS A AND D TOPICAL OINTMENT 60 GM TUBE TP SCH ×3 (05:25→17:57)
[2020-03-29] MEDS ORDERED: METHADONE HCL 10 MG TABLET (FOR DETOX USE ONLY) PO ONE (10:00)
[2020-03-29] MEDS: PRENATAL VITAMINS W/ FOLIC ACID TABLET (FP) PO SCH (10:48)
[2020-03-29] MEDS: NICOTINE 21 MG/24 HOURS TOPICAL PATCH TD SCH (10:48)
--- NOTE | 2020-03-29 11:02 | PN ---
[facility] CIWA - CIWA Score Nausea/Vomitin-No Nausea/No Vomiting Muscle Tremors: None Anxiety: 2 Agitation: 1-Slight > Activity Paroxysmal Sweats: 2 Orientation: 0-Oriented Tacttile Disturbances: 0-None Auditory Disturbances: 0-None Visual Disturbances: 0-None Headache: 0-None Present CIWA-Ar Total Score: 5 S COWS - Scale Resting Pulse: 0= [place] 80 or Below Sweatin= No chills or Flushing Restless Observation: 0= Sits Still Pupil Size: 0= Normal to Room Light Bone or Joint Aches: 1= Mild Discomfort Runny Nose/ Eye Tearin= None GI Upset > 30mins: 0= None Tremor Observation of Outstretched Hands: 0= None Yawning Observation: 0= None Anxiety or Irritability: 1=Feels Anxious/Irritable Goose Flesh Skin: 0=Smooth Skin COWS Score: 2 S Progress Note (SOAP) Subjective: Complaints of mild anxiety, sweats and chronic left knee pain.. Objective: 03/29/20 11:01 Vital Signs 03/29/20 05:11 Temperature 96.4 F L Pulse Rate 57 L Respiratory 16 Rate Blood Pressure 146/82 O2 Sat by Pulse 99 Oximetry (%) Laboratory Last Values WBC 9.6 K/mm3 (4.0-10.0) 03/25/20 13:50 RBC 4.34 M/mm3 (4.00-5.60) 03/25/20 13:50 Hgb 13.7 GM/dL (11.7-16.9) 03/25/20 13:50 Hct 41.3 % (35.4-49) 03/25/20 13:50 MCV 95.1 fl (80-96) 03/25/20 13:50 MCH 31.6 pg (25.7-33.7) 03/25/20 13:50 MCHC 33.2 g/dl (32.0-35.9) 03/25/20 13:50 RDW 14.8 % (11.9-15.9) 03/25/20 13:50 Plt Count 247 K/MM3 (134-434) 03/25/20 13:50 MPV 8.5 fl (7.5-11.1) 03/25/20 13:50 Sodium 142 mmol/L (136-145) 03/25/20 13:50 Potassium 3.7 mmol/L (3.5-5.1) 03/25/20 13:50 Chloride 106 mmol/L (98-107) 03/25/20 13:50 Carbon Dioxide 30 mmol/L (21-32) 03/25/20 13:50 Anion Gap 7 MMOL/L (8-16) L 03/25/20 13:50 BUN 12.1 mg/dL (7-18) 03/25/20 13:50 Creatinine 1.1 mg/dL (0.55-1.3) 03/25/20 13:50 Est GFR (CKD-EPI)AfAm 90.88 03/25/20 13:50 Est GFR (CKD-EPI)NonAf 78.41 03/25/20 13:50 Random Glucose 100 mg/dL (74-106) 03/25/20 13:50 Calcium 9.0 mg/dL (8.5-10.1) 03/25/20 13:50 Total Bilirubin 0.8 mg/dL (0.2-1) 03/25/20 13:50 AST 65 U/L (15-37) H 03/25/20 13:50 ALT 109 U/L (13-61) H 03/25/20 13:50 Alkaline Phosphatase 61 U/L (45-117) 03/25/20 13:50 Total Protein 7.7 g/dl (6.4-8.2) 03/25/20 13:50 Albumin 3.8 g/dl (3.4-5.0) 03/25/20 13:50 Syphilis Serology Non-reactive (NONREACTIVE) 03/25/20 13:50 COVID-19 (MICHAELA) Not detected (Not Detected) 03/25/20 14:55 HIV Ag/Ab Combo Qual Negative (NEGATIVE) 03/25/20 13:50 Labs noted. Assessment: 03/29/20 11:01 Alert and oriented x 3, in no acute respiratory distress. Full ROM, ambulatory in unit without any assistance. Skin warm to touch without any lesions. Very mild withdrawal symptoms. For D/C in AM Plan: Continue detox protocol. D/C in AM.
[2020-03-29] MEDS: MELATONIN 5 MG TABLETS PO SCH (22:50)
[2020-03-29] MEDS: THIAMINE HCL 100 MG TABLET (FP) PO SCH (22:50)
[2020-03-30] MEDS: VITAMINS A AND D TOPICAL OINTMENT 60 GM TUBE TP SCH (05:54)
[2020-03-30] MEDS ORDERED: METHADONE HCL 5 MG TABLET (FOR DETOX USE ONLY) PO ONE (06:00)
[2020-03-30 06:41] VITALS: TEMP 97.7
[2020-03-30] MEDS: PRENATAL VITAMINS W/ FOLIC ACID TABLET (FP) PO SCH (10:51)
[2020-03-30] MEDS: NICOTINE 21 MG/24 HOURS TOPICAL PATCH TD SCH (10:51)
[2020-03-30 11:55] VITALS: BP 130/74; PULSE 63
--- NOTE | 2020-03-30 12:51 | DS ---
[facility] Detox Discharge Summary Admission Date: 03/25/20 Discharge Date: 03/30/20 - History Present History: Alcohol Dependence, Cannabis Dependence, Cocaine Dependence, Opioid Dependence Additional Comments: Pt is medically cleared and discharged today. Pt completed the detox protocol. Pt is encouraged to follow-up with an outpatient CD program and also to follow- up with his pmd which he verbalized understanding. Pt is AOX3, in no acute respiratory distress, Full ROM, and ambulatory. Pertinent Past History: h/o alcohol, cocaine, heroin, and cannabis use disorder. - Physical Exam Results Vital Signs: Vital Signs Temperature 97.7 F 03/30/20 08:52 Pulse Rate 63 03/30/20 08:52 Respiratory Rate 17 03/30/20 08:52 Blood Pressure 130/74 03/30/20 08:52 O2 Sat by Pulse Oximetry (%) 99 03/30/20 08:52 Vital Signs 03/30/20 03/30/20 05:20 08:52 Temperature 97.7 F 97.7 F Pulse Rate 59 L 63 Respiratory 20 17 Rate Blood Pressure 121/80 130/74 O2 Sat by Pulse 97 99 Oximetry (%) Laboratory Last Values WBC 9.6 K/mm3 (4.0-10.0) 03/25/20 13:50 RBC 4.34 M/mm3 (4.00-5.60) 03/25/20 13:50 Hgb 13.7 GM/dL (11.7-16.9) 03/25/20 13:50 Hct 41.3 % (35.4-49) 03/25/20 13:50 MCV 95.1 fl (80-96) 03/25/20 13:50 MCH 31.6 pg (25.7-33.7) 03/25/20 13:50 MCHC 33.2 g/dl (32.0-35.9) 03/25/20 13:50 RDW 14.8 % (11.9-15.9) 03/25/20 13:50 Plt Count 247 K/MM3 (134-434) 03/25/20 13:50 MPV 8.5 fl (7.5-11.1) 03/25/20 13:50 Sodium 142 mmol/L (136-145) 03/25/20 13:50 Potassium 3.7 mmol/L (3.5-5.1) 03/25/20 13:50 Chloride 106 mmol/L (98-107) 03/25/20 13:50 Carbon Dioxide 30 mmol/L (21-32) 03/25/20 13:50 Anion Gap 7 MMOL/L (8-16) L 03/25/20 13:50 BUN 12.1 mg/dL (7-18) 03/25/20 13:50 Creatinine 1.1 mg/dL (0.55-1.3) 03/25/20 13:50 Est GFR (CKD-EPI)AfAm 90.88 03/25/20 13:50 Est GFR (CKD-EPI)NonAf 78.41 03/25/20 13:50 Random Glucose 100 mg/dL (74-106) 03/25/20 13:50 Calcium 9.0 mg/dL (8.5-10.1) 03/25/20 13:50 Total Bilirubin 0.8 mg/dL (0.2-1) 03/25/20 13:50 AST 65 U/L (15-37) H 03/25/20 13:50 ALT 109 U/L (13-61) H 03/25/20 13:50 Alkaline Phosphatase 61 U/L (45-117) 03/25/20 13:50 Total Protein 7.7 g/dl (6.4-8.2) 03/25/20 13:50 Albumin 3.8 g/dl (3.4-5.0) 03/25/20 13:50 Syphilis Serology Non-reactive (NONREACTIVE) 03/25/20 13:50 COVID-19 (MICHAELA) Not detected (Not Detected) 03/25/20 14:55 HIV Ag/Ab Combo Qual Negative (NEGATIVE) 03/25/20 13:50 Labs noted. Pertinent Admission Physical Exam Findings: withdrawal symptoms. - Treatment Hospital Course: Detox Protocol Followed, Detoxed Safely, Responded well, Discharged Condition Good - Medication Discharge Medications: Ambulatory Orders NK [No Known Home Medication] 06/18/18 - Diagnosis (1) Alcohol dependence with uncomplicated withdrawal Current Visit: Yes Status: Acute (2) Cocaine dependence, uncomplicated Current Visit: Yes Status: Chronic (3) Alcohol dependence Current Visit: No Status: Chronic (4) Nicotine dependence Current Visit: No Status: Chronic Qualifiers: Nicotine product type: cigarettes Substance use status: in withdrawal Qualified Code(s): F17.213 - Nicotine dependence, cigarettes, with withdrawal (5) Opioid dependence with withdrawal Current Visit: Yes Status: Acute - AMA Did Patient Leave Against Medical Advice: No
== END 2020-03-30 12:35 | disposition other institution (70) | DRG 773 ==
LOC: YASAS 12:25 → Y6N 14:22
PROVIDERS: ADMIT Allergy & Immunology; ATTEND Allergy & Immunology
PROC: HZ2ZZZZ Detoxification Services for Substance Abuse Treatment (ICD-10-PCS; principal; 2020-03-25)
DX: F10.230 Alcohol dependence with withdrawal, uncomplicated (principal); F11.23 Opioid dependence with withdrawal; F14.20 Cocaine dependence, uncomplicated; F12.20 Cannabis dependence, uncomplicated; F17.210 Nicotine dependence, cigarettes, uncomplicated; K74.60 Unspecified cirrhosis of liver; Z86.19 Personal history of other infectious and parasitic diseases; Z91.013 Allergy to seafood; Z59.0 Homelessness
CPT/HCPCS: 36415; 80053; 85027; 86780; 87389; 90670; 93005; 93010; Q0162; U0003

== ENCOUNTER 2020-03-30 12:22 | Inpatient (IN) | payer OTHER ==
[2020-03-30] MEDS ORDERED: guaiFENesin 200 MG/10 ML 10 ML UNIT-DOSE CUPS PO PRN (12:38)
[2020-03-30] MEDS ORDERED: MAG HYDROX/AL HYDROX/SIMETH 30 ML UNIT-DOSE CUP PO PRN (12:38)
[2020-03-30] MEDS ORDERED: IBUPROFEN 400 MG TABLET (FP) PO PRN (12:38)
[2020-03-30] MEDS ORDERED: MENTHOL/PHENOL 1 EACH UD MM PRN (12:38)
[2020-03-30] MEDS ORDERED: MAGNESIUM CITRATE 300 ML BOTTLE PO PRN (12:38)
[2020-03-30] MEDS ORDERED: LOPERAMIDE HCL 2 MG CAPSULE PO PRN (12:38)
[2020-03-30] MEDS ORDERED: P-EPHED 60MG/TRIPROLIDI 2.5MG TABLET PO PRN (12:38)
[2020-03-30] MEDS ORDERED: ACETAMINOPHEN 325 MG TABLET (FP) PO PRN (12:38)
[2020-03-30] MEDS ORDERED: MAGNESIUM HYDROX 2400MG/30ML ORAL SUSPENSION 30 ML CUP PO PRN (12:38)
--- NOTE | 2020-03-30 12:41 | HP ---
[facility] Rehab Assess/Revision - Admission History Admitted to Rehab from: Y Date of Admission to Rehab: 03/30/20 - Findings Detox History & Physical reviewed: Yes Concur with findings: Yes Comments/Additional Findings: Pt is a 49 y/o male with a hx of CARLOS- Heroin,alcohol,cocaine, marijuana who completed detox on today and referred to rehab. PMHx:Hep C, Cirrhosis. Psych Hx:denies. Alert o x 3. nad. oob ambulating with steady gait. Inpatient Rehab Admission - Rehab Decision to Admit Inpatient rehab admission?: Yes - Initial Determination Are CD services needed?: Yes Free of communicable disease: Yes Not in need of hospitalization: Yes - Rehab Admission Criteria Previous failed treatment: Yes Poor recovery environment: Yes Comorbidities: Yes Lacks judgement: Yes Patient is meeting Inpatient Rehab admission criteria:: Yes
[2020-03-30] MEDS: THIAMINE HCL 100 MG TABLET (FP) PO SCH (21:30)
[2020-03-30] MEDS: MELATONIN 5 MG TABLETS PO SCH (21:30)
[2020-03-30] MEDS: METHYL SALICYLATE/MENTHOL OINT 30 GM TUBE TP SCH (21:31)
[2020-03-30] MEDS: hydrOXYzine PAMOATE 25 MG CAPSULE (FP) PO PRN (21:31)
[2020-03-31] MEDS ORDERED: MASKS NR ONE (06:37)
[2020-03-31] MEDS: VITAMINS A AND D TOPICAL OINTMENT 60 GM TUBE TP SCH (10:10)
[2020-03-31] MEDS: METHYL SALICYLATE/MENTHOL OINT 30 GM TUBE TP SCH ×2 (10:11→21:01)
[2020-03-31] MEDS: PRENATAL VITAMINS W/ FOLIC ACID TABLET (FP) PO SCH (10:11)
[2020-03-31] MEDS: MELATONIN 5 MG TABLETS PO SCH (21:00)
[2020-03-31] MEDS: THIAMINE HCL 100 MG TABLET (FP) PO SCH (21:00)
[2020-04-01] MEDS: hydrOXYzine PAMOATE 25 MG CAPSULE (FP) PO PRN (10:03)
[2020-04-01] MEDS: PRENATAL VITAMINS W/ FOLIC ACID TABLET (FP) PO SCH (10:03)
[2020-04-01] MEDS: VITAMINS A AND D TOPICAL OINTMENT 60 GM TUBE TP SCH (10:03)
[2020-04-01] MEDS: METHYL SALICYLATE/MENTHOL OINT 30 GM TUBE TP SCH ×2 (10:04→21:07)
[2020-04-01] MEDS: THIAMINE HCL 100 MG TABLET (FP) PO SCH (21:07)
[2020-04-01] MEDS: MELATONIN 5 MG TABLETS PO SCH (21:07)
[2020-04-02] MEDS: METHYL SALICYLATE/MENTHOL OINT 30 GM TUBE TP SCH ×2 (09:47→22:19)
[2020-04-02] MEDS: PRENATAL VITAMINS W/ FOLIC ACID TABLET (FP) PO SCH (09:47)
[2020-04-02] MEDS: VITAMINS A AND D TOPICAL OINTMENT 60 GM TUBE TP SCH (09:47)
--- NOTE | 2020-04-02 10:21 | PN ---
[facility] Progress Note Note: Pt personally requesting to see psych as per Nurse Sabrina Yanez. Pt stated to writer editor " I lost my mother to Covid and my for 18 years also ". Pt was assured he will be seen but continued asking multiple times "are you gonna do it or not?". Pt was again reminded he will be seen by the psych MD. Earlier this morning, Nurse Lexie Shaffer reported that pt was very anxious, unsettling, loud and argumentative and playing loud music/dancing(asking the nurse to dance with him). Pt had difficulty with redirection by nurse Lexie Shaffer when asked to turn the volume of stereo down. Vital Signs - 24 hr 04/01/20 04/01/20 04/02/20 14:12 20:25 06:58 Temperature 98.0 F Pulse Rate 55 L Respiratory 16 Rate Blood Pressure 140/84 O2 Sat by Pulse 99 97 97 Oximetry (%) Pt is alert o x 3 nad, but irritable and loud oob ambulating with steady gait with cane(on/off) Irritability depressed Bereavement Psych consult today
--- NOTE | 2020-04-02 17:00 | CONSULT ---
[facility] Psychiatric Consult - Data Date of interview: 04/02/20 Admission source: [facility] Identifying data: Mr. Solo is a 49 year old [place] male, ( two years ago), unemployed, homeless, and is supported with food stamps. This is one of multiple admissions for patient. Patient admitted to for marijuana, cocaine, and opiate dependence. Substance Abuse History: Substance Use History. Heroin. Substance amount: 1 bundles. Frequency of use: Daily. Substance route: Injection (ex: intravenous or skin popping). Date of Last Use: 03/25/20. Alcohol. Substance amount: 2 pints vodka and Felice. Frequency of use: Daily. Substance route: Oral. Date of Last Use: 03/24/20. Cocaine- Powder. Substance amount: $100. Frequency of use: Daily. Substance route: Injection (ex: intravenous or skin popping). Date of Last Use: 03/25/20. Marijuana/Hashish. Substance amount: $10. Frequency of use: Daily. Substance route: Smoking. Date of Last Use: 03/25/20. Nicotine. Substance amount: 1 pack. Frequency of use: Daily. Substance route: Smoking. Date of Last Use: 03/25/20 Medical History: hypertension, Hep C, cirrhosis of the liver Psychiatric History: Publishing Editor saw Mr. Solo with Counselor Nando as patient requested Nando be present during assessment. Mr. Solo reports history of one psychiatric hospitalization at [facility]. Patient unwilling to elaborate for reason for hospitalization and date ( stated he can't remember) but did state to narrative writer that he refused medication and signed himself out within 72 hours. As per previous notes patient reported taking zyprexa 5mg when he was at [facility] in his 20's due to his depression. Today, patient stated that his mother used to give him zyprexa from her medication regiman. Patient denies history of outpatient psychiatric care and suicide attempt. He reports moments of sadness as he is continues to grieve the of his ( two years ago) and his mother who two months ago. Mr. Solo denies auditory/ visual hallucinations,paranoid ideations, suicidal/ homicidal ideation. No psychosis noted. Physical/Sexual Abuse/Trauma History: denies. Mental Status Exam - Mental Status Exam Alert and Oriented to: Time, Place, Person Cognitive Function: Good Patient Appearance: Well Groomed Mood: Sad Affect: Labile Patient Behavior: Restless, Talkative, Cooperative Speech Pattern: Appropriate Voice Loudness: Normal Thought Process: Goal Oriented Thought Disorder: Not Present Hallucinations: Denies Suicidal Ideation: Denies Homicidal Ideation: Denies Insight/Judgement: Poor Sleep: Fair Appetite: Fair Muscle strength/Tone: Normal Gait/Station: Normal Psychiatric Findings - Problem List ([place] 1, 2,3) (1) Alcohol use disorder Current Visit: Yes Status: Acute (2) Bereavement Current Visit: No Status: Acute (3) Cocaine dependence, uncomplicated Current Visit: Yes Status: Chronic (4) Opioid dependence Current Visit: Yes Status: Acute (5) Mood disorder Current Visit: No Status: Suspected - Initial Treatment Plan Initial Treatment Plan: Psychoeducation provided. Rehab in progress. Patient not interested in accepting psychotropic medications. Observation.
[2020-04-02] MEDS: MELATONIN 5 MG TABLETS PO SCH (22:19)
[2020-04-02] MEDS: THIAMINE HCL 100 MG TABLET (FP) PO SCH (22:19)
[2020-04-03] MEDS: PRENATAL VITAMINS W/ FOLIC ACID TABLET (FP) PO SCH (10:03)
[2020-04-03] MEDS: METHYL SALICYLATE/MENTHOL OINT 30 GM TUBE TP SCH ×2 (10:04→22:45)
[2020-04-03] MEDS: VITAMINS A AND D TOPICAL OINTMENT 60 GM TUBE TP SCH (10:04)
--- NOTE | 2020-04-03 12:59 | PN ---
[facility] Progress Note Note: Pt was seen by the psyc [employer]. Pt admits to hx psych hospitalization at some point. Pt's behaior ws discussed in staff huddle today and request for UTOX made. Vital Signs - 24 hr 04/02/20 04/03/20 20:27 06:20 Temperature 97.8 F Pulse Rate 68 Respiratory 18 Rate Blood Pressure 132/81 O2 Sat by Pulse 96 96 Oximetry (%) Alert o x 3, denies s/h/i nad oob ambulating with steady gait As per psych consult note,"Psychoeducation provided. Rehab in progress. Patient not interested in accepting psychotropic medications. Observation". Urine Toxicology today.
[2020-04-03] MEDS: MELATONIN 5 MG TABLETS PO SCH (22:45)
[2020-04-03] MEDS: THIAMINE HCL 100 MG TABLET (FP) PO SCH (22:45)
[2020-04-03] MEDS: hydrOXYzine PAMOATE 25 MG CAPSULE (FP) PO PRN (23:29)
[2020-04-04] MEDS: PRENATAL VITAMINS W/ FOLIC ACID TABLET (FP) PO SCH (09:41)
[2020-04-04] MEDS: METHYL SALICYLATE/MENTHOL OINT 30 GM TUBE TP SCH ×2 (09:42→21:03)
[2020-04-04] MEDS: VITAMINS A AND D TOPICAL OINTMENT 60 GM TUBE TP SCH (09:42)
[2020-04-04] MEDS: MELATONIN 5 MG TABLETS PO SCH (21:03)
[2020-04-04] MEDS: THIAMINE HCL 100 MG TABLET (FP) PO SCH (21:03)
[2020-04-05] MEDS: METHYL SALICYLATE/MENTHOL OINT 30 GM TUBE TP SCH ×2 (09:37→21:08)
[2020-04-05] MEDS: PRENATAL VITAMINS W/ FOLIC ACID TABLET (FP) PO SCH (09:37)
[2020-04-05] MEDS: VITAMINS A AND D TOPICAL OINTMENT 60 GM TUBE TP SCH (09:38)
[2020-04-05] MEDS: THIAMINE HCL 100 MG TABLET (FP) PO SCH (21:08)
[2020-04-05] MEDS: MELATONIN 5 MG TABLETS PO SCH (21:08)
[2020-04-06] MEDS: VITAMINS A AND D TOPICAL OINTMENT 60 GM TUBE TP SCH (10:03)
[2020-04-06] MEDS: PRENATAL VITAMINS W/ FOLIC ACID TABLET (FP) PO SCH (10:03)
[2020-04-06] MEDS: METHYL SALICYLATE/MENTHOL OINT 30 GM TUBE TP SCH ×2 (10:04→22:08)
[2020-04-06] MEDS: THIAMINE HCL 100 MG TABLET (FP) PO SCH (22:08)
[2020-04-06] MEDS: MELATONIN 5 MG TABLETS PO SCH (22:08)
--- NOTE | 2020-04-07 00:05 | PN ---
[facility] Progress Note Note: nursing reports pt w/ bizarre behaviors, placing towels on the floor and requesting photocopies of posted advisories . Seen by psychiatry 04/02/2020 , pt refused psychiatric interventions . Vital Signs - 24 hr 04/06/20 04/06/20 04/06/20 07:08 12:43 20:41 Temperature 97.3 F L Pulse Rate 62 Respiratory 18 Rate Blood Pressure 125/76 O2 Sat by Pulse 98 96 97 Oximetry (%) P : psychiatric re-evaluation in a.m. Nursing to monitor .
[2020-04-07] MEDS: VITAMINS A AND D TOPICAL OINTMENT 60 GM TUBE TP SCH (10:03)
[2020-04-07] MEDS: PRENATAL VITAMINS W/ FOLIC ACID TABLET (FP) PO SCH (10:03)
[2020-04-07] MEDS: METHYL SALICYLATE/MENTHOL OINT 30 GM TUBE TP SCH ×2 (10:04→21:54)
[2020-04-07] MEDS: THIAMINE HCL 100 MG TABLET (FP) PO SCH (21:54)
[2020-04-07] MEDS: MELATONIN 5 MG TABLETS PO SCH (21:54)
[2020-04-08] MEDS: PRENATAL VITAMINS W/ FOLIC ACID TABLET (FP) PO SCH (09:49)
[2020-04-08] MEDS: METHYL SALICYLATE/MENTHOL OINT 30 GM TUBE TP SCH ×2 (09:49→23:16)
[2020-04-08] MEDS: VITAMINS A AND D TOPICAL OINTMENT 60 GM TUBE TP SCH (09:49)
--- NOTE | 2020-04-08 10:00 | PN ---
[facility] Progress Note Note: As per counselor Ms Glenis Rees, requesting pt needs psych re-eval and possible psychotropic medications to be accepted to the CD referral programs. Based on pt's documented behavioral patterns, the referral sources recommend that pt be on medication to be accepted per counselor Trinity. Pt has been observed on several occasions by staff with suspicious and bizarre behaviors as well as dragging himself and having peers drag him on the floor;uncontrolled loudness, talkative and difficult to redirect. Pt was also seen by Dr. Ramirez who was called for behavior issue and she recommends psych re-evaluates pt today. Pt requested his initial consult stating, "i need to see the psych"(stumping out of his room at the time and somehow agitated). Pt was seen by Malik Covarrubias, supervisor cap and hat production but refused to take medication at the time. Pt has been informed by his counselor, Ms Glenis Petersen the need to be stabilized to follow up with next level of care. Pt agreed to take psychotropics. However, pt reports he took medication in the past that gave him "Jump" side effect. Pt does not know specific name. This sports book writer and Nurse Sabrina Yanez met with pt this morning to inquire about his mental health welfare, aftercare referral issues and medication refusals. Pt requested he wants to speak with a witness, preferably his counselor Ms Petersen who was immediately called into the meeting. She explained same to him and pt agreed to re-evaluation for medication. Vital Signs - 24 hr 04/07/20 04/07/20 04/08/20 13:09 18:58 06:58 Temperature 98.2 F Pulse Rate 76 Respiratory 18 Rate Blood Pressure 157/95 O2 Sat by Pulse 97 97 97 Oximetry (%) Alert o x 3, denies s/h/i nad but agitated and loud oob ambulates with steady gait Rehab Pt Hx Mood Disorder Psych Re-Eval for medication. As per Ms Petersen this is recommended by aftercare referral based on pt's behavior hx.
--- NOTE | 2020-04-08 17:32 | PN ---
Psychiatric Progress Note Vital Signs: Vital Signs Period Temp Pulse Resp BP Sys/Contreras Pulse Ox Last 24 Hr 98.2 F 76 18 157/95 96-97 Date of Session: 04/08/20 Chief Complaint:: " The press tender long goods program wants me to take medications." HPI: Patient admitted to for marijuana, cocaine, and opiate dependence. Consultation ordered due to reassessment of evaluation of medications for skilled nursing treatment program. ROS: Patient is ambulatory, alert +oriented X3. Current Medications: Active Medications Generic Name Dose Route Start Last Admin Trade Name Freq PRN Reason Stop Dose Admin Acetaminophen 650 mg 03/30/20 12:38 Tylenol - PO Q4H PRN FEVER Al Hydroxide/Mg Hydroxide 30 ml 03/30/20 12:38 Mylanta Oral Suspension - PO Q6H PRN DYSPEPSIA Eucalyptus/Menthol/Phenol/Sorbitol 1 each 03/30/20 12:38 Cepastat Lozenge - MM Q4H PRN SORE THROAT Guaifenesin 10 ml 03/30/20 12:38 Robitussin - PO Q6H PRN COUGH Hydroxyzine Pamoate 25 mg 03/30/20 12:38 04/03/20 23:29 Vistaril - PO 25 mg Q4H PRN Administration ANXIETY Ibuprofen 400 mg 03/30/20 12:38 Motrin - PO Q6H PRN Pain Level 4-6 Loperamide HCl 4 mg 03/30/20 12:38 Imodium - PO Q6H PRN DIARRHEA Magnesium Citrate 300 ml 03/30/20 12:38 Citroma - PO Q48H PRN CONSTIPATION Magnesium Hydroxide 30 ml 03/30/20 12:38 Milk Of Magnesia - PO DAILY PRN CONSTIPATION Melatonin 5 mg 03/30/20 22:00 04/07/20 21:54 Melatonin PO Not Given HS EDVIN Methyl Salicylate 1 applic 03/30/20 22:00 04/08/20 09:49 Mor-Pate - TP Not Given BID EDVIN Multivit/Folic Acid/Iron 1 tab 03/31/20 10:00 04/08/20 09:49 Vitamins (Sjr) - PO 1 tab DAILY EDVIN Administration Pseudoephedrine/Triprolidine 1 combo 03/30/20 12:38 Actifed - PO TID PRN NASAL CONGESTION Thiamine HCl 100 mg 03/30/20 22:00 09/15/20 21:54 Vitamin B1 - PO Not Given HS EDVIN Vitamin A/Vitamin D 1 applic 03/31/20 10:00 04/08/20 09:49 Vitamin A & D Top Oint - TP Not Given DAILY EDVIN Medication(s) Change(s): Yes. Will add Zyprexa 2.5 mg HS. Current Side Effect: No Lab tests ordered: No Lab tests reviewed: Yes Provider note:: Patient seen bedside. Mr. Solo presented as alert +oriented X3, cooperative but moderately restless. Patient reports motivation to continue treatment in a skilled nursing program but was recommended that he accept psychotropic medications. Patient has been prescribed zyprexa 5mg during previous admisssion with favorable effect. Patient aware of his moments of restlessness, anxiety and irritability. Mood is currently stable but as per nursing staff patient's behavior can be "bizarre." Patient denies auditory/ visual hallucinations, suicidal/ homicidal ideation. No psychosis noted. Patient reminded of the importance of abiding the rules of the unit. Patient in agreement to accept vistaril 25mg q4h for anxiety and zyprexa 2.5mg HS for mood stabilizaton. Benefits and side effects discussed. Verbal consent given. Total face to face time:: 25 Mental Status Exam - Mental Status Exam Alert and Oriented to: Time, Place, Person Cognitive Function: Good Patient Appearance: Well Groomed Mood: Anxious, Hopeful Affect: Mood Congruent Patient Behavior: Talkative, Cooperative Speech Pattern: Appropriate Voice Loudness: Normal Thought Process: Goal Oriented Thought Disorder: Not Present Hallucinations: Denies Suicidal Ideation: Denies Homicidal Ideation: Denies Insight/Judgement: Poor Sleep: Poorly Appetite: Fair Muscle strength/Tone: Normal Gait/Station: Normal Psychiatric Treatment Plan - Problem List (1) Alcohol use disorder Current Visit: Yes (2) Bereavement Current Visit: No (3) Cocaine dependence, uncomplicated Current Visit: Yes (4) Opioid dependence Current Visit: Yes (5) Mood disorder Current Visit: No
[2020-04-08] MEDS: hydrOXYzine PAMOATE 25 MG CAPSULE (FP) PO PRN ×2 (18:45→23:14)
[2020-04-08] MEDS: OLANZapine 2.5 MG TABLET PO SCH (23:14)
[2020-04-08] MEDS: THIAMINE HCL 100 MG TABLET (FP) PO SCH (23:15)
[2020-04-08] MEDS: MELATONIN 5 MG TABLETS PO SCH (23:15)
[2020-04-09] MEDS: hydrOXYzine PAMOATE 25 MG CAPSULE (FP) PO PRN ×3 (06:31→21:06)
[2020-04-09] MEDS: PRENATAL VITAMINS W/ FOLIC ACID TABLET (FP) PO SCH (10:15)
[2020-04-09] MEDS: METHYL SALICYLATE/MENTHOL OINT 30 GM TUBE TP SCH ×2 (10:16→21:06)
[2020-04-09] MEDS: VITAMINS A AND D TOPICAL OINTMENT 60 GM TUBE TP SCH (10:16)
[2020-04-09] MEDS: OLANZapine 2.5 MG TABLET PO SCH (21:07)
[2020-04-09] MEDS: MELATONIN 5 MG TABLETS PO SCH (21:07)
[2020-04-09] MEDS: THIAMINE HCL 100 MG TABLET (FP) PO SCH (21:26)
[2020-04-10 06:51] VITALS: BP 158/91; PULSE 96; TEMP 98.4
[2020-04-10] MEDS: hydrOXYzine PAMOATE 25 MG CAPSULE (FP) PO PRN (06:52)
--- NOTE | 2020-04-10 09:02 | PN ---
[facility] Progress Note Note: Patient is discharged today. Script for 30 days supply of Zyprexa 2.5 mg/hs is electronically transmitted to [facility], [address] [place], [place] [address] [address]
--- NOTE | 2020-04-10 09:30 | DS ---
[facility] Discharge Summary - [facility] Discharge Summary Admission Date: 03/30/20 Discharge Date: 04/10/20 - History Present History: Alcohol dependence, Cannabis dependence, Cocaine dependence, Opioid dependence Additional Comments: Cooling Room Attendant was informed by staff that patient was discharging and patient was called to the nursing station and explained to him about discharge assessment, pt was very loud and screaming and stating "I'm leaving I don't want you to do anything", and he walked away and continued abrasive, loud talks throughout the unit as he walks back and forth. Pt later came banging drum beats on his counselor's door during morning rounds meeting, when the door was opened, pt was very loud, abrasive, and intimidating towards the counselor at the door gesturing with both raised fisted hands and waving them at the counselor's face while other staff in the room called and informed staff at the nurses station desk and security was called to the unit. Pertinent Past History: HTN(no med) Hep C Hx Left knee injury/Chronic pain Mood Disorder - Discharge Physical Exam Vital Signs: Vital Signs Temperature 98.4 F 04/10/20 06:32 Pulse Rate 96 H 04/10/20 06:32 Respiratory Rate 18 04/10/20 06:32 Blood Pressure 158/91 04/10/20 06:32 O2 Sat by Pulse Oximetry (%) 95 04/10/20 06:32 Alert o x 3,denies s/h/i nad,hypercative, no resp difficulty oob ambulating with steady gait Declined further d/c assessment Pertinent Admission Physical Exam Findings: s/p detox - Treatment Discharge Condition: Discharge condition good, Outpatient referral accepted (Pt responded negatively to aftercare referral) Hospital Course: Pt is a 49 y/o male admitted to rehab after completion of detox on 03/25/20 to 03/30/20 and discharged today. PMHx: Hep cPt did not fully participate in the treatment program as he was often distracted with frequent loud outbursts of anger and argumentative to staff and around the patient community rooms/groups. Often have difficulty with re-direction. Pt was seen by the psychiatrist for evaluation of mental health and frequent exhibition of bizarre behavior(please see psych notes). As per pt's counselor Ms Glenis Petersen, aftercare referral programs recommended pt be started on psychotropics to stabilize his mood. Pt declined first attempt and agreed on subsequent attempts to start on medication. Pt was started on Zyprexa 2.5 mg po HS and only took the first dose. Pt refused meds last night. Today, pt verbally refused aftercare but d/c information and recommendation was given to the patient to follow up with aftercare. - Medication Discharge Medications: Ambulatory Orders Olanzapine [Zyprexa -] 2.5 mg PO HS #30 tablet 04/10/20 - Medication-Assisted Treatment (MAT) Medication-Assisted Treatment (MAT): No - Discharge Instructions Diet, activity, other medical instructions: Diet:Regular Activity:oob ad jeffery Other medical instructions: To follow up with [facility] aftercare as scheduled. Follow up with primary care @ [facility] for medical management. - Diagnosis (1) Alcohol use disorder Status: Chronic (2) Hepatitis C Status: Chronic Qualifiers: Viral hepatitis chronicity: chronic (3) Nicotine dependence Status: Chronic Qualifiers: Nicotine product type: cigarettes Substance use status: uncomplicated Qualified Code(s): F17.210 - Nicotine dependence, cigarettes, uncomplicated (4) Chronic pain of left knee Status: Chronic (5) Opioid dependence Status: Chronic Qualifiers: Substance use status: uncomplicated Qualified Code(s): F11.20 - Opioid dependence, uncomplicated (6) Cocaine dependence, uncomplicated Status: Chronic (7) Mood disorder Status: Suspected - Follow-up Referral Minutes to complete discharge: 20 - AMA Did Patient Leave Against Medical Advice: No Additional Comments: Noncompliant with treatment and disruptive treatment environment behavior.
== END 2020-04-10 09:37 | disposition home or self-care (01) | DRG 772 ==
LOC: YASAS 12:22 → Y5N 12:23
PROVIDERS: ADMIT Allergy & Immunology; ATTEND Allergy & Immunology
PROC: HZ42ZZZ Group Counseling for Substance Abuse Treatment, Cognitive-Behavioral (ICD-10-PCS; principal; 2020-03-30)
DX: F11.20 Opioid dependence, uncomplicated (principal); F10.20 Alcohol dependence, uncomplicated; F14.20 Cocaine dependence, uncomplicated; F12.20 Cannabis dependence, uncomplicated; F17.210 Nicotine dependence, cigarettes, uncomplicated; F39 Unspecified mood [affective] disorder; I10 Essential (primary) hypertension; K74.69 Other cirrhosis of liver; B18.2 Chronic viral hepatitis C; Z63.4 Disappearance and death of family member; Z56.0 Unemployment, unspecified; Z59.0 Homelessness; Z91.013 Allergy to seafood

== ENCOUNTER 2020-11-04 13:03 | Inpatient (IN) | payer OTHER ==
[2020-11-04 19:14] VITALS: BMI 25.7
[2020-11-04] MEDS ORDERED: hydrOXYzine PAMOATE 25 MG CAPSULE (FP) PO PRN (19:58)
[2020-11-04] MEDS ORDERED: MAGNESIUM CITRATE 300 ML BOTTLE PO PRN (19:58)
[2020-11-04] MEDS ORDERED: MAGNESIUM HYDROX 2400MG/30ML ORAL SUSPENSION 30 ML CUP PO PRN (19:58)
[2020-11-04] MEDS ORDERED: P-EPHED 60MG/TRIPROLIDI 2.5MG TABLET PO PRN (19:58)
[2020-11-04] MEDS ORDERED: LOPERAMIDE HCL 2 MG CAPSULE PO PRN (19:58)
[2020-11-04] MEDS ORDERED: MAG HYDROX/AL HYDROX/SIMETH 30 ML UNIT-DOSE CUP PO PRN (19:58)
[2020-11-04] MEDS ORDERED: guaiFENesin 200 MG/10 ML 10 ML UNIT-DOSE CUPS PO PRN (19:58)
[2020-11-04] MEDS ORDERED: NICOTINE POLACRILEX 4 MG GUM BC PRN (19:58)
[2020-11-04] MEDS ORDERED: ACETAMINOPHEN 325 MG TABLET (FP) PO PRN (19:58)
[2020-11-04] MEDS ORDERED: IBUPROFEN 400 MG TABLET (FP) PO PRN (19:58)
[2020-11-04] MEDS: THIAMINE HCL 100 MG TABLET (FP) PO SCH (22:09)
[2020-11-04] MEDS: MELATONIN 5 MG TABLETS PO SCH (22:09)
[2020-11-04] MEDS: NICOTINE 21 MG/24 HOURS TOPICAL PATCH TD SCH (22:41)
[2020-11-04] MEDS: VITAMINS A AND D TOPICAL OINTMENT 60 GM TUBE TP SCH (22:42)
[2020-11-05] MEDS: PRENATAL VITAMINS W/ FOLIC ACID TABLET (FP) PO SCH (09:45)
[2020-11-05] MEDS: NICOTINE 21 MG/24 HOURS TOPICAL PATCH TD SCH (09:45)
[2020-11-05] MEDS: VITAMINS A AND D TOPICAL OINTMENT 60 GM TUBE TP SCH (09:46)
[2020-11-05 11:11] LABS: ALBUMIN 3.8 g/dl (3.4-5.0); BLOOD UREA NITROGEN 12.6 mg/dL (7-18)
[2020-11-05 11:16] LABS: BILIRUBIN,TOTAL 1.1 mg/dL (0.2-1); TOT PROT 7.8 g/dl (6.4-8.2)
[2020-11-05 11:17] LABS: HEMATOCRIT 44.2 % (35.4-49); HEMOGLOBIN 15.1 GM/dL (11.7-16.9); MCH 32.9 pg (25.7-33.7); MCHC 34.2 g/dl (32.0-35.9); MEAN CELL VOLUME 96.1 fl (80-96); MEAN PLT VOLUME 8.5 fl (7.5-11.1); PLATELET COUNT 258 K/MM3 (134-434); WHITE BLOOD COUNT 8.8 K/mm3 (4.0-10.0)
[2020-11-05 11:56] LABS: SICKLE CELL SCREEN NEGATIVE (NEGATIVE)
[2020-11-05] MEDS: BACITRACIN 0.9 GM PACKET TP SCH ×2 (13:06→21:25)
[2020-11-05] MEDS: THIAMINE HCL 100 MG TABLET (FP) PO SCH (21:26)
[2020-11-05] MEDS: OLANZapine 2.5 MG TABLET PO SCH (21:26)
[2020-11-05] MEDS: MELATONIN 5 MG TABLETS PO SCH (21:26)
[2020-11-05] MEDS ORDERED: MASKS NR ONE (22:59)
[2020-11-06] MEDS: PRENATAL VITAMINS W/ FOLIC ACID TABLET (FP) PO SCH (09:36)
[2020-11-06] MEDS: NICOTINE 21 MG/24 HOURS TOPICAL PATCH TD SCH (09:36)
[2020-11-06] MEDS: BACITRACIN 0.9 GM PACKET TP SCH ×2 (09:37→21:53)
[2020-11-06] MEDS: VITAMINS A AND D TOPICAL OINTMENT 60 GM TUBE TP SCH (09:37)
[2020-11-06] MEDS: THIAMINE HCL 100 MG TABLET (FP) PO SCH (21:53)
[2020-11-06] MEDS: MELATONIN 5 MG TABLETS PO SCH (21:53)
[2020-11-06] MEDS: OLANZapine 2.5 MG TABLET PO SCH (23:58)
[2020-11-07] MEDS: PRENATAL VITAMINS W/ FOLIC ACID TABLET (FP) PO SCH (09:57)
[2020-11-07] MEDS: NICOTINE 21 MG/24 HOURS TOPICAL PATCH TD SCH (09:57)
[2020-11-07] MEDS: BACITRACIN 0.9 GM PACKET TP SCH ×2 (09:57→21:43)
[2020-11-07] MEDS: VITAMINS A AND D TOPICAL OINTMENT 60 GM TUBE TP SCH (09:58)
[2020-11-07 12:52] LABS: URINE APPEARANCE CLEAR; URINE BILIRUBIN NEGATIVE (NEGATIVE); URINE COLOR YELLOW; URINE GLUCOSE (UA) NEGATIVE (NEGATIVE); URINE KETONE NEGATIVE (NEGATIVE); URINE LEUK ESTERASE NEGATIVE (NEGATIVE); URINE NITRITE NEGATIVE (NEGATIVE); URINE PROTEIN NEGATIVE (NEGATIVE); URINE UROBILINOGEN 0.2 mg/dL (0.2-1.0)
[2020-11-07] MEDS: THIAMINE HCL 100 MG TABLET (FP) PO SCH (21:43)
[2020-11-07] MEDS: OLANZapine 2.5 MG TABLET PO SCH (21:43)
[2020-11-07] MEDS: MELATONIN 5 MG TABLETS PO SCH (21:44)
[2020-11-08 08:08] LABS: SARS-CoV-2 NAA Not Detected (Not Detected)
[2020-11-08] MEDS: NICOTINE 21 MG/24 HOURS TOPICAL PATCH TD SCH (09:59)
[2020-11-08] MEDS: VITAMINS A AND D TOPICAL OINTMENT 60 GM TUBE TP SCH (09:59)
[2020-11-08] MEDS: BACITRACIN 0.9 GM PACKET TP SCH ×2 (09:59→21:15)
[2020-11-08] MEDS: PRENATAL VITAMINS W/ FOLIC ACID TABLET (FP) PO SCH (09:59)
[2020-11-08] MEDS: MELATONIN 5 MG TABLETS PO SCH (21:15)
[2020-11-08] MEDS: OLANZapine 2.5 MG TABLET PO SCH (21:15)
[2020-11-08] MEDS: THIAMINE HCL 100 MG TABLET (FP) PO SCH (21:15)
[2020-11-09] MEDS: NICOTINE 21 MG/24 HOURS TOPICAL PATCH TD SCH (10:17)
[2020-11-09] MEDS: PRENATAL VITAMINS W/ FOLIC ACID TABLET (FP) PO SCH (10:17)
[2020-11-09] MEDS: BACITRACIN 0.9 GM PACKET TP SCH ×2 (10:18→21:28)
[2020-11-09] MEDS ORDERED: PT OWN MED DRAWER 7, Y5N ONE (10:20)
[2020-11-09] MEDS: VITAMINS A AND D TOPICAL OINTMENT 60 GM TUBE TP SCH (10:20)
[2020-11-09] MEDS: MELATONIN 5 MG TABLETS PO SCH (21:28)
[2020-11-09] MEDS: OLANZapine 2.5 MG TABLET PO SCH (21:29)
[2020-11-09] MEDS: THIAMINE HCL 100 MG TABLET (FP) PO SCH (21:29)
[2020-11-10] MEDS: VITAMINS A AND D TOPICAL OINTMENT 60 GM TUBE TP SCH (10:03)
[2020-11-10] MEDS: BACITRACIN 0.9 GM PACKET TP SCH ×2 (10:03→22:03)
[2020-11-10] MEDS: PRENATAL VITAMINS W/ FOLIC ACID TABLET (FP) PO SCH (10:03)
[2020-11-10] MEDS: NICOTINE 21 MG/24 HOURS TOPICAL PATCH TD SCH (10:04)
[2020-11-10] MEDS ORDERED: PT OWN MED DRAWER 7, Y5N ONE (20:37)
[2020-11-10] MEDS: OLANZapine 2.5 MG TABLET PO SCH (22:03)
[2020-11-10] MEDS: MELATONIN 5 MG TABLETS PO SCH (22:03)
[2020-11-10] MEDS: THIAMINE HCL 100 MG TABLET (FP) PO SCH (22:03)
[2020-11-11] MEDS ORDERED: PT OWN MED DRAWER 7, Y5N ONE (08:53)
[2020-11-11] MEDS: BACITRACIN 0.9 GM PACKET TP SCH ×2 (10:29→21:18)
[2020-11-11] MEDS: PRENATAL VITAMINS W/ FOLIC ACID TABLET (FP) PO SCH (10:29)
[2020-11-11] MEDS: VITAMINS A AND D TOPICAL OINTMENT 60 GM TUBE TP SCH (10:29)
[2020-11-11] MEDS: NICOTINE 21 MG/24 HOURS TOPICAL PATCH TD SCH (10:30)
[2020-11-11] MEDS: OLANZapine 5 MG TABLET PO SCH (21:19)
[2020-11-11] MEDS: THIAMINE HCL 100 MG TABLET (FP) PO SCH (21:19)
[2020-11-11] MEDS: MELATONIN 5 MG TABLETS PO SCH (21:19)
[2020-11-12] MEDS ORDERED: PT OWN MED DRAWER 7, Y5N ONE ×2 (09:19→20:39)
[2020-11-12] MEDS: VITAMINS A AND D TOPICAL OINTMENT 60 GM TUBE TP SCH (10:16)
[2020-11-12] MEDS: BACITRACIN 0.9 GM PACKET TP SCH ×2 (10:16→21:37)
[2020-11-12] MEDS: PRENATAL VITAMINS W/ FOLIC ACID TABLET (FP) PO SCH (10:16)
[2020-11-12] MEDS: NICOTINE 21 MG/24 HOURS TOPICAL PATCH TD SCH (10:17)
[2020-11-12] MEDS: THIAMINE HCL 100 MG TABLET (FP) PO SCH (21:37)
[2020-11-12] MEDS: OLANZapine 5 MG TABLET PO SCH (21:37)
[2020-11-12] MEDS: MELATONIN 5 MG TABLETS PO SCH (21:37)
[2020-11-13] MEDS ORDERED: PT OWN MED DRAWER 7, Y5N ONE ×2 (08:51→10:48)
[2020-11-13] MEDS: BACITRACIN 0.9 GM PACKET TP SCH ×2 (10:04→21:41)
[2020-11-13] MEDS: PRENATAL VITAMINS W/ FOLIC ACID TABLET (FP) PO SCH (10:04)
[2020-11-13] MEDS: VITAMINS A AND D TOPICAL OINTMENT 60 GM TUBE TP SCH (10:05)
[2020-11-13] MEDS: NICOTINE 21 MG/24 HOURS TOPICAL PATCH TD SCH (10:05)
[2020-11-13] MEDS ORDERED: METHOCARBAMOL 500 MG TABLET PO PRN (11:04)
[2020-11-13] MEDS: METHYL SALICYLATE/MENTHOL OINT 30 GM TUBE TP SCH ×2 (12:38→21:41)
[2020-11-13] MEDS: MELATONIN 5 MG TABLETS PO SCH (21:40)
[2020-11-13] MEDS: OLANZapine 10 MG TABLET PO SCH (21:40)
[2020-11-13] MEDS: THIAMINE HCL 100 MG TABLET (FP) PO SCH (21:41)
[2020-11-14] MEDS ORDERED: MASKS NR ONE (07:58)
[2020-11-14] MEDS ORDERED: PT OWN MED DRAWER 7, Y5N ONE (08:46)
[2020-11-14] MEDS: PRENATAL VITAMINS W/ FOLIC ACID TABLET (FP) PO SCH (09:42)
[2020-11-14] MEDS: NICOTINE 21 MG/24 HOURS TOPICAL PATCH TD SCH (09:43)
[2020-11-14] MEDS: VITAMINS A AND D TOPICAL OINTMENT 60 GM TUBE TP SCH (09:43)
[2020-11-14] MEDS: BACITRACIN 0.9 GM PACKET TP SCH ×2 (09:43→21:20)
[2020-11-14] MEDS: METHYL SALICYLATE/MENTHOL OINT 30 GM TUBE TP SCH ×2 (09:43→21:20)
[2020-11-14] MEDS: THIAMINE HCL 100 MG TABLET (FP) PO SCH (21:20)
[2020-11-14] MEDS: MELATONIN 5 MG TABLETS PO SCH (21:20)
[2020-11-14] MEDS: OLANZapine 10 MG TABLET PO SCH (21:20)
[2020-11-15 06:33] VITALS: BP 135/86; PULSE 79; TEMP 96.9
[2020-11-15] MEDS: METHYL SALICYLATE/MENTHOL OINT 30 GM TUBE TP SCH (10:21)
[2020-11-15] MEDS: BACITRACIN 0.9 GM PACKET TP SCH (10:21)
[2020-11-15] MEDS: NICOTINE 21 MG/24 HOURS TOPICAL PATCH TD SCH (10:22)
[2020-11-15] MEDS ORDERED: PT OWN MED DRAWER 7, Y5N ONE (10:22)
[2020-11-15] MEDS: VITAMINS A AND D TOPICAL OINTMENT 60 GM TUBE TP SCH (10:22)
[2020-11-15] MEDS: PRENATAL VITAMINS W/ FOLIC ACID TABLET (FP) PO SCH (10:22)
== END 2020-11-15 10:43 | disposition home or self-care (01) | DRG 772 ==
LOC: YASAS 13:03 → Y5N 20:27
PROVIDERS: ADMIT Allergy & Immunology; ATTEND Allergy & Immunology
PROC: HZ42ZZZ Group Counseling for Substance Abuse Treatment, Cognitive-Behavioral (ICD-10-PCS; principal; 2020-11-04)
DX: F11.20 Opioid dependence, uncomplicated (principal); F10.20 Alcohol dependence, uncomplicated; F14.20 Cocaine dependence, uncomplicated; F13.20 Sedative, hypnotic or anxiolytic dependence, uncomplicated; F12.20 Cannabis dependence, uncomplicated; F17.210 Nicotine dependence, cigarettes, uncomplicated; F19.24 Other psychoactive substance dependence with psychoactive substance-induced mood disorder; I10 Essential (primary) hypertension; K74.60 Unspecified cirrhosis of liver; L08.89 Other specified local infections of the skin and subcutaneous tissue; B18.2 Chronic viral hepatitis C; M25.562 Pain in left knee; Z62.810 Personal history of physical and sexual abuse in childhood; Z91.410 Personal history of adult physical and sexual abuse; Z99.89 Dependence on other enabling machines and devices
CPT/HCPCS: 36415; 71046-TC-FY; 80053; 81003; 85027; 85660; 86780; C9803; U0003; U0005